=== PATIENT | female | born 1945 | race American Indian/Alaskan Native ===

== ENCOUNTER 2023-09-20 15:55 | Inpatient (IN) | payer MEDICARE, MEDICAID, SELFPAY ==
[2023-09-20] VITALS (21 sets, daily range): BP systolic 100–163; BP diastolic 53–78; PULSE 71–108; RESP 11–26; TEMP 36.7; O2SAT 96–100; BMI 27.3; BMI 23.5
--- NOTE | 2023-09-20 15:56 | DI.CT.S_ITS ---
PROCEDURE: CT STROKE INDICATIONS: code stroke TECHNIQUE: Noncontrast 4.5 mm thick angled axial sections acquired from the foramen magnum to the vertex, with coronal reformats. For radiation dose reduction, the following was used: automated exposure control, adjustment of mA and/or kV according to patient size. COMPARISON: [facility], CT, CT ANGIO HEAD AND NECK, 09/20/2023, 15:58. FINDINGS: Image quality: Excellent. CSF spaces: Basal cisterns are patent. No extra-axial fluid collections. The ventricles are symmetric in size and shape. Brain: No intracranial bleeds or masses. There is cerebral volume loss for age, with resultant ventricular and sulcal prominence. There are periventricular and deep white matter chronic small vessel ischemic changes. There is intracranial internal carotid artery atherosclerosis. Chronic left MCA territory infarct. Skull and face: Calvarium and visualized facial bones appear intact, without suspicious lesions. Sinuses: Visualized sinuses and mastoids are clear. IMPRESSION: No hemorrhagic infarct. Findings discussed with Dr. Rivas at 4:48 p.m. On 09/20/2023. This study fulfills neurological imaging criteria for inclusion or exclusion of acute stroke therapies based on available published neurological guidelines. Dictated by: Khurram Fan M.D. on 09/20/2023 at 16:46 Approved by: Khurram Fan M.D. on 09/20/2023 at 16:48
--- NOTE | 2023-09-20 15:56 | DI.CT.S_ITS ---
PROCEDURE: CT ANGIO HEAD AND NECK INDICATIONS: code stroke TECHNIQUE: After the administration of intravenous contrast, 1 mm thick sections acquired from the aortic arch through the [place] of [place]. 3-dimensional nkpzaku-nozglvnfp-vazfkmbchu (MIP) and/or volume rendering reformats were acquired of the central intracranial vasculature and neck separately. For radiation dose reduction, the following was used: automated exposure control, adjustment of mA and/or kV according to patient size. COMPARISON: [facility], CT, CT STROKE, 09/20/2023, 15:58. FINDINGS: Image quality: Diagnostic. BRAIN: Please see separately dictated CT head report 09/20/2023. HEAD CT ANGIOGRAPHY: Anterior circulation: Intracranial internal carotid arteries are normal in size and flow. The flow within the paired anterior cerebral arteries is normal and symmetric. The flow within the middle cerebral arteries is normal and symmetric. The anterior communicating artery is seen. No aneurysms are seen. Posterior circulation: Visualized portions of the vertebral arteries demonstrate normal caliber, and join to form a normal appearing basilar artery. Flow within the posterior cerebral arteries is normal and symmetric. No aneurysms are seen. NECK CT ANGIOGRAPHY: Carotid system: The great vessels demonstrate a conventional anatomy as they arise from the aortic arch. Stent is noted in the distal ascending thoracic aorta. The origins of the common carotid arteries appear patent. The common carotid arteries demonstrate normal caliber and courses. The bifurcation regions are both widely patent. Prominent calcifications are present at the origin of the internal carotid arteries bilaterally. There is approximately 60-70% stenosis on the right and 50% on the left. Posterior circulation: The origins of the vertebral arteries both appear widely patent. The more superior extracranial portions of both vertebral arteries also demonstrate normal courses and calibers. They join to form a normal appearing basilar artery. Soft tissues: Visualized neck soft tissues demonstrate no suspicious abnormalities. Bones: No suspicious bony lesions. Visualized cervical spine appears normally aligned. IMPRESSION: Please see CT brain report separately dictated on 09/20/2025. No areas of hemodynamically significant stenosis, vascular occlusion or aneurysmal dilation within the anterior circulation. No areas of hemodynamically significant stenosis, vascular occlusion or aneurysmal dilation within the posterior circulation. 50% left and 60-70% right internal carotid artery stenosis. Any quantitative measurements of stenosis were performed using NASCET criteria. Dictated by: Dian Avina M.D. on 09/20/2023 at 16:59 Approved by: Dian Avina M.D. on 09/20/2023 at 17:09
--- NOTE | 2023-09-20 16:10 | ED_ITS ---
HPI - Neuro Symptoms/Deficit General Chief Complaint: Neuro Symptoms/Deficit Stated Complaint: Code Stroke Time Seen by Provider: 09/20/23 16:00 History of Present Illness HPI Narrative: 78-year-old female with unknown past medical history presents by EMS from home for altered mental status, possible stroke. History obtained from EMS as patient is currently nonverbal. EMS states that family last saw patient normal at 14 45, they left to briefly perform an outdoor task and when they came inside the patient was unresponsive, and so they called 911. EN route patient was noted to be nonverbal, have no movement on her right-hand side. Accu-Chek 122. Patient taken expeditiously to CT scanner on arrival. Profound right-sided deficits noted as well as aphasia Related Data Allergies Allergy/AdvReac Type Severity Reaction Status Date / Time No Known Drug Allergies Allergy Verified 09/20/23 17:46 Review of Systems Review of Systems ROS Unobtainable: Unobtainable due to medical condition Patient History Social History Smoking Status: Former smoker Exam Initial Vital Signs Initial Vital Signs: Vital Signs Pulse Rate 108 H 09/20/23 16:10 Respiratory Rate 14 09/20/23 16:10 Pulse Oximetry 96 09/20/23 16:10 Const: Awake, arouses to voice Eyes: PERRL, R gaze deficit ENT: Atraumatic, mucous membranes moist Cardiac: regular rate, regular rhythm RESP: unlabored, clear bilaterally, no wheezing GI: Atraumatic, soft, nontender Skin: Warm, Dry, intact, no rashes Neuro: Alert to voice, right-sided neglect, right upper and lower extremity drift, aphasia Course Course Course Narrative: Stroke alert for right-sided deficit, last seen well by family at 2:[address] scanner, where CT noncontrast and CTA of head and neck were obtained. No acute hemorrhage seen on noncontrast CT, large area of old infarcts seen on left-hand side of brain. Discussed case with on-call tele Neurology, who will evaluate the patient. Orders Ordered: ED Orders 09/20/23 15:[address] angio head and neck Stat 09/20/23 16:15 Complete Blood Count AUTO DIFF Stat Comprehensive Metabolic Panel Stat Ethanol (ETOH) Stat PTT Partial Thromboplastin Ranjit Stat Prothrombin Time INR Stat Troponin & CK Cardiac Panel Stat 09/20/23 16:32 Urine Drug Screen, Rapid Stat 09/20/23 16:33 Urinalysis and Microscopic Stat EKG-12 Lead Stat 09/20/23 16:35 COVID19 -Nasal RAPID Stat Discontinued Medications Levetiracetam 1,950 mg/ Sodium (Chloride) 119.5 mls @ 478 mls/hr IV NOW ONE Stop: 09/20/23 17:29 Last Infusion: 09/20/23 18:47 Dose: Infused Documented By: Admin: 09/20/23 18:13 Dose: 478 mls/hr Documented By: JIM Lorazepam (Lorazepam 2 Mg/Ml Inj) 1 mg IV NOW ONE Stop: 09/20/23 16:05 Last Admin: 09/20/23 16:10 Dose: Not Given Documented By: JIM Reevaluation(s) Reevaluation #1: Tele neurology has evaluated the patient. Family is now at bedside, they state that patient did have previous stroke on the left-hand side, her residual deficits are mild weakness of her right lower extremity. They state that patient is able to speak, however she speaks infrequently. As tele neurology evaluated the patient she returned back to her baseline, confirmed by family at bedside. Reevaluation #2: Tele neurology states that patient's presentation is unlikely to be a stroke, it is more likely seizure from previous infarcted brain. They recommend loading with IV Keppra and initiation of 500 mg b.i.d. Keppra. They state the patient does not need an EEG, however they do recommend an MRI to rule out acute ischemia. Family states that they are not sure if patient can get an MRI due to previous aortic surgery. Teleneurology states that if patient is unable to get an MRI and they recommend a repeat CT in the morning. Case accepted by tele hospitalist. Consultations Consultation #1: Dr. Tran ( Neurology) patient's case is unlikely to be acute stroke as symptoms have rapidly resolved. Much more likely to be seizure activity with postictal state. Recommend loading with Keppra and initiation of 500 mg p.o. b.i.d.. Patient needs either MRI or repeat CT in the morning to rule out acute infarction. Vital Signs Vital signs: Vital Signs - 8 hr 09/20/23 16:10 09/20/23 16:13 09/20/23 16:13 Temperature Pulse Rate 108 H 104 H Respiratory Rate 14 23 Blood Pressure 163/77 H Pulse Oximetry 96 100 Oxygen Delivery Method 09/20/23 16:15 09/20/23 16:15 09/20/23 16:22 Temperature 98.0 F Pulse Rate 104 H 103 H Respiratory Rate 21 19 Blood Pressure 150/74 H 150/74 H Pulse Oximetry 98 100 Oxygen Delivery Method Room Air 09/20/23 16:30 09/20/23 16:30 09/20/23 16:45 Temperature Pulse Rate 101 H 102 H Respiratory Rate 25 H 21 Blood Pressure 149/67 H Pulse Oximetry 100 100 Oxygen Delivery Method 09/20/23 16:45 09/20/23 17:00 09/20/23 17:00 Temperature Pulse Rate 94 H Respiratory Rate 19 Blood Pressure 130/66 125/62 Pulse Oximetry 100 Oxygen Delivery Method 09/20/23 17:15 09/20/23 17:15 09/20/23 17:30 Temperature Pulse Rate 91 H 89 Respiratory Rate 19 18 Blood Pressure 133/60 Pulse Oximetry 98 96 Oxygen Delivery Method 09/20/23 17:30 09/20/23 17:45 09/20/23 17:45 Temperature Pulse Rate 85 Respiratory Rate 17 Blood Pressure 104/55 L 117/56 L Pulse Oximetry 96 Oxygen Delivery Method 09/20/23 18:00 09/20/23 18:00 Temperature Pulse Rate 80 Respiratory Rate 15 Blood Pressure 118/57 L Pulse Oximetry 96 Oxygen Delivery Method Room Air MDM - Neuro Symptoms/Deficit Differential Diagnosis Differential diagnosis: Likely convulsions, delirium and subarachnoid hemorrhage Lab Data 09/20/23 16:15 09/20/23 16:15 Labs: Lab Results 09/20/23 09/20/23 Range/Units 16:15 16:35 WBC 7.1 (4.5-11.0) X10^3/uL RBC 3.25 L (4.0-5.2) X10^6/uL Hgb 10.7 L (12.0-16.0) g/dL Hct 30.3 L (36-46) % MCV 93.4 (80-100) fL MCH 32.9 (26-34) PG MCHC 35.2 (30-36) % RDW 13.0 (11.6-14.8) % Plt Count 196 (150-400) X10^3/uL Neut % (Auto) 65.4 (50-75) % Lymph % (Auto) 25.8 (25-40) % [place] % (Auto) 6.5 (3-14) % Eos % (Auto) 1.2 L (2-4) % Baso % (Auto) 1.1 (0-2) % Neut # (Auto) 4600 (0686-0620) /uL Lymph # (Auto) 1800 (7043-5120) /uL [place] # (Auto) 500 (0-900) /uL Eos # (Auto) 100 (0-450) /uL Baso # (Auto) 100 (0-100) /uL PT 11.8 (10.1-12.7) SECONDS INR 1.0 (0.9-1.3) APTT 26 (26-36) SECONDS Sodium 129 L (137-145) mmol/L Potassium 4.0 (3.4-5.1) mmol/L Chloride 96 L (98-107) mmol/L Carbon Dioxide 23 (22-32) mmol/L BUN 19 H (7-17) mg/dL Creatinine 0.63 (0.52-1.04) mg/dL Estimated GFR > 60 (>60) mL/min BUN/Creatinine Ratio 30.2 H (6-22) Glucose 175 H (80-110) mg/dL Calcium 8.6 (8.4-10.2) mg/dL Total Bilirubin 0.2 (0.2-1.3) mg/dL AST 24 (14-36) IU/L ALT 15 (<35) IU/L Alkaline Phosphatase 84 (38-126) U/L Total Creatine Kinase 80 (30-135) U/L Troponin I < 0.012 (0.01-0.034) ng/mL Total Protein 7.0 (6.3-8.2) g/dL Albumin 3.6 (3.5-5.0) g/dL Globulin 3.4 (1.7-4.1) g/dL Albumin/Globulin Ratio 1.1 (1.0-2.8) Ethyl Alcohol < 10 ( - 10) mg/dL SARS-CoV-2 (PCR) Negative (Negative) Point of Care Testing Glucose POC 165 Critical Care Time Critical Care Time Critical Care Time: Yes Total Critical Care Time: 38 Attestation: Acute change in mental status concerning for acute CVA. Discharge Plan Departure Patient Disposition: Admitted as Observation Clinical Impression: Seizure, Right sided weakness
[2023-09-20 16:45] LABS: Prothrombin Time 11.8 SECONDS (10.1-12.7)
[2023-09-20 16:47] LABS: Add Manual Diff / Slide Review NO; Basophils Absolute Auto 100 /uL (0-100); Basophils Percent Auto 1.1 % (0-2); Eosinophils Absolute Auto 100 /uL (0-450); Eosinophils Percent Auto 1.2 % (2-4); Hematocrit 30.3 % (36-46); Hemoglobin 10.7 g/dL (12.0-16.0); Lymphocytes Absolute Auto 1800 /uL (1100-4500); Lymphocytes Percent Auto 25.8 % (25-40); Mean Corpuscular HGB Conc 35.2 % (30-36); Mean Corpuscular Hemoglobin 32.9 PG (26-34); Mean Corpuscular Volume 93.4 fL (80-100); Monocytes Absolute Auto 500 /uL (0-900); Monocytes Percent Auto 6.5 % (3-14); Neutrophils Absolute Auto 4600 /uL (1500-7000); Neutrophils Percent Auto 65.4 % (50-75); Platelet Count 196 X10^3/uL (150-400); Red Blood Cell Count 3.25 X10^6/uL (4.0-5.2); White Blood Cell Count 7.1 X10^3/uL (4.5-11.0)
[2023-09-20 16:48] LABS: PTT Partial Thromboplastin Tim 26 SECONDS (26-36)
[2023-09-20 16:54] LABS: Alanine Aminotransferase 15 IU/L (<35); Albumin 3.6 g/dL (3.5-5.0); Albumin Globulin Ratio 1.1 (1.0-2.8); Alkaline Phosphatase 84 U/L (38-126); Aspartate Aminotransferase 24 IU/L (14-36); BUN Creatinine Ratio 30.2 (6-22); Bilirubin Total 0.2 mg/dL (0.2-1.3); Blood Urea Nitrogen 19 mg/dL (7-17); Calcium 8.6 mg/dL (8.4-10.2); Carbon Dioxide 23 mmol/L (22-32); Chloride 96 mmol/L (98-107); Creatine Kinase 80 U/L (30-135); Estimated Glomerular Filt Rate > 60 mL/min (>60); Ethanol (ETOH) < 10 mg/dL; Globulin 3.4 g/dL (1.7-4.1); Glucose 175 mg/dL (80-110); HEMOLYSIS 17 (0-50); Sodium 129 mmol/L (137-145)
[2023-09-20 16:58] LABS: COVID19 -Nasal RAPID Negative (Negative)
--- NOTE | 2023-09-20 16:59 | PC.NURSE ---
Telehealth [facility] doctor finishes video conference with patient. Per tele-health [facility] doctor recommendations are for anti-seizure meds and MRI or repeat CT in the morning. Provider Rob made aware of tele-health recommendations.
[2023-09-20 17:06] LABS: Troponin I < 0.012 ng/mL (0.01-0.034)
[2023-09-20] MEDS: LEVETIRACETAM IV (18:13)
[2023-09-20] MEDS: SODIUM CHLORIDE 0.9% IV (18:13)
--- NOTE | 2023-09-20 21:31 | P.HP_ITS ---
History of Present Illness History of Present Illness Chief complaint: Code Stroke Narrative: 78 years old female with history of hypertension, hyperlipidemia, hypothyroidism presented to the ER with altered mental status. As per EMS note the family last saw her at 14:45. When they saw her later the patient was unresponsive and called 911. In route the patient was noted to be nonverbal, no movements on the right side and her blood sugar was 122. Neuro code initiated and the patient had a CT scan which shows large old infarct seen on the left side of the brain. Telemetry neurologist on-call was consulted and stated that the patient presentation is unlikely to be stroke and most likely seizure from previous stroke. The patient received Keppra 500 mg IV and initiated 500 mg p.o. twice daily. Currently the patient is nonverbal and still left-sided residual weakness from previous stroke. Laboratory shows sodium 129, blood sugar 175, troponin negative, COVID 19 negative, creatinine 0.63, EtOH level negative. Initial blood pressure was 163/77 and pulse 108. PFSH Social History household members: family Smoking Status: Former smoker alcohol intake: current Meds Home Medications and Allergies Home Medications Medication Instructions Recorded Confirmed Type amlodipine 10 mg tablet 10 mg PO DAILY 09/20/23 09/20/23 History aspirin 81 mg tablet,delayed 81 mg PO DAILY 09/20/23 09/20/23 History release atorvastatin 40 mg tablet 40 mg PO BEDTIME 09/20/23 09/20/23 History ferrous gluconate 324 mg (37.5 mg 324 mg PO Q OTHER DAY 09/20/23 09/20/23 History iron) tablet levothyroxine 100 mcg tablet 100 mcg PO DAILY 09/20/23 09/20/23 History lisinopril 40 mg tablet 40 mg PO DAILY 09/20/23 09/20/23 History nitroglycerin 0.4 mg sublingual 0.4 mg sublingual Q5-15M PRN cp 09/20/23 09/20/23 History tablet Allergies Allergy/AdvReac Type Severity Reaction Status Date / Time No Known Drug Allergies Allergy Verified 09/20/23 17:46 Review of Systems Review of Systems ROS: Yes All systems reviewed with the patient and are negative except as otherwise documented Constitutional Constitutional: Reports as per HPI and Reports system reviewed and no additional complaints, except as documented Eyes Eyes: Reports as per HPI and Reports system reviewed and no additional complaints, except as documented ENT Ears, Nose, Mouth, and Throat: Yes as per HPI and Yes system reviewed and no additional complaints, except as documented Cardiovascular Cardiovascular: Reports system reviewed and no additional complaints, except as documented Respiratory Respiratory: Reports system reviewed and no additional complaints, except as documented Gastrointestinal Gastrointestinal: Reports system reviewed and no additional complaints, except as documented Genitourinary Genitourinary: Reports system reviewed and no additional complaints, except as documented Musculoskeletal Musculoskeletal: Reports system reviewed and no additional complaints, except as documented, Reports abnormal gait and Reports numbness Neurologic Neurologic: Reports system reviewed and no additional complaints, except as documented, Reports abnormal gait, Reports confusion and Reports numbness Psychiatric Psychiatric: Reports system reviewed and no additional complaints, except as documented and Reports confusion Exam Vital Signs (past 8 hours): - 09/20/23 16:10 09/20/23 16:13 09/20/23 16:13 Temperature Pulse Rate 108 H 104 H Respiratory Rate 14 23 Blood Pressure 163/77 H Pulse Oximetry 96 100 Oxygen Delivery Method 09/20/23 16:15 09/20/23 16:15 09/20/23 16:22 Temperature 98.0 F Pulse Rate 104 H 103 H Respiratory Rate 21 19 Blood Pressure 150/74 H 150/74 H Pulse Oximetry 98 100 Oxygen Delivery Method Room Air 09/20/23 16:30 09/20/23 16:30 09/20/23 16:45 Temperature Pulse Rate 101 H 102 H Respiratory Rate 25 H 21 Blood Pressure 149/67 H Pulse Oximetry 100 100 Oxygen Delivery Method 09/20/23 16:45 09/20/23 17:00 09/20/23 17:00 Temperature Pulse Rate 94 H Respiratory Rate 19 Blood Pressure 130/66 125/62 Pulse Oximetry 100 Oxygen Delivery Method 09/20/23 17:15 09/20/23 17:15 09/20/23 17:30 Temperature Pulse Rate 91 H 89 Respiratory Rate 19 18 Blood Pressure 133/60 Pulse Oximetry 98 96 Oxygen Delivery Method 09/20/23 17:30 09/20/23 17:45 09/20/23 17:45 Temperature Pulse Rate 85 Respiratory Rate 17 Blood Pressure 104/55 L 117/56 L Pulse Oximetry 96 Oxygen Delivery Method 09/20/23 18:00 09/20/23 18:00 09/20/23 18:16 Temperature Pulse Rate 80 84 Respiratory Rate 15 19 Blood Pressure 118/57 L Pulse Oximetry 96 97 Oxygen Delivery Method Room Air 09/20/23 18:16 09/20/23 18:30 09/20/23 18:30 Temperature Pulse Rate 81 Respiratory Rate 19 Blood Pressure 146/65 H 149/71 H Pulse Oximetry 98 Oxygen Delivery Method 09/20/23 18:46 09/20/23 18:46 09/20/23 19:00 Temperature Pulse Rate 90 90 Respiratory Rate 21 19 Blood Pressure 150/68 H Pulse Oximetry 98 Oxygen Delivery Method 09/20/23 19:00 09/20/23 19:15 09/20/23 19:15 Temperature Pulse Rate 89 Respiratory Rate 24 Blood Pressure 139/63 129/63 Pulse Oximetry 97 Oxygen Delivery Method 09/20/23 19:30 09/20/23 19:30 09/20/23 19:45 Temperature Pulse Rate 85 89 Respiratory Rate 25 H 26 H Blood Pressure 136/76 Pulse Oximetry 98 98 Oxygen Delivery Method 09/20/23 19:45 09/20/23 20:00 09/20/23 20:00 Temperature Pulse Rate 76 Respiratory Rate 15 Blood Pressure 148/78 H 117/57 L Pulse Oximetry 100 Oxygen Delivery Method Room Air 09/20/23 20:15 09/20/23 20:15 09/20/23 20:30 Temperature Pulse Rate 71 79 Respiratory Rate 14 11 L Blood Pressure 102/53 L Pulse Oximetry 100 100 Oxygen Delivery Method 09/20/23 20:30 Temperature Pulse Rate Respiratory Rate Blood Pressure 100/55 L Pulse Oximetry Oxygen Delivery Method Oxygen Delivery Method Room Air Const General: cooperative and comfortable HENNC Head: normal to inspection, normocephalic and atraumatic Face and sinus: normal facial exam Mouth: oral mucosae normal and moist mucous membranes Throat: posterior oropharynx normal Eyes General: appearance normal, both eyes and all related structures Pupils: PERRL EOM: EOM intact bilaterally Neck Neck: normal visual inspection and full ROM Chest Chest: normal inspection of the chest Resp Effort & Inspection: normal respiratory effort and able to speak in complete sentences Auscultation: clear to auscultation bilaterally Cardio Palpation: normal PMI Rate: regular rate Rhythm: regular rhythm Heart Sounds: S1 normal and S2 normal GI Inspection: normal to inspection Palpation: soft and no hepatosplenomegaly Auscultation: normal bowel sounds Skin General: no rashes or lesions noted Lesions: no lesions Rashes: no rashes Trauma: no lacerations or abrasions Neuro General: patient alert, patient awake, patient oriented x3 and no focal motor deficits Cranial Nerves: CN's II-XI intact bilaterally Cognition: normal cognition Speech: speech normal Gait: normal gait Motor: muscle tone normal throughout Sensory Exam: no sensory deficits noted Extrem General: full ROM and no calf tenderness Psych Appearance: grossly normal Mental Status: mental status grossly normal Speech and Movement: speech and movement normal Objective Labs 09/20/23 16:15 09/20/23 16:15 Labs: Laboratory Results - last 24 hr 09/20/23 09/20/23 16:15 16:35 WBC 7.1 RBC 3.25 L Hgb 10.7 L Hct 30.3 L MCV 93.4 MCH 32.9 MCHC 35.2 RDW 13.0 Plt Count 196 Neut % (Auto) 65.4 Lymph % (Auto) 25.8 [place] % (Auto) 6.5 Eos % (Auto) 1.2 L Baso % (Auto) 1.1 Neut # (Auto) 4600 Lymph # (Auto) 1800 [place] # (Auto) 500 Eos # (Auto) 100 Baso # (Auto) 100 PT 11.8 INR 1.0 APTT 26 Sodium 129 L Potassium 4.0 Chloride 96 L Carbon Dioxide 23 BUN 19 H Creatinine 0.63 Estimated GFR > 60 BUN/Creatinine Ratio 30.2 H Glucose 175 H Calcium 8.6 Total Bilirubin 0.2 AST 24 ALT 15 Alkaline Phosphatase 84 Total Creatine Kinase 80 Troponin I < 0.012 Total Protein 7.0 Albumin 3.6 Globulin 3.4 Albumin/Globulin Ratio 1.1 Ethyl Alcohol < 10 SARS-CoV-2 (PCR) Negative Assessment & Plan Assessment and plan (1) Seizure: Status: Acute Plan: Seizure versus stroke -ASA, Keppra 500 mg po BID -ECHO, MRI -Telemetry monitoring, Serial neurocheck -Strict bed-rest for now -Monitor hemodynamic -Continue IV fluids -Ativan IV prn for seizure activity -n.p.o. for now -Check lipid panel in a.m., thyroid function test, blood sugar monitoring, -PT/OT and swallowing evaluation in a.m. I would keep him n.p.o. for now -Sroke education -fall precaution -LDL goal 40-70. LDL <70 associated with increased risk of ICH -Goal BP <140/90 with tighter control associated with decreased overall CV risk, if tolerated (2) Hypertension: Status: Acute Plan: Restart amlodipine and lisinopril (3) Hyperlipidemia: Status: Acute Plan: Restart Lipitor and check lipids (4) Hypothyroidism: Status: Acute Plan: Restart levothyroxine and check TSH Time Spent With Patient Time with patient: 50 to 69 minutes with 50% spent counseling/coordinating care Quality VTE Deep Vein Thrombosis/Pulmonary Embolism Present on Admission: No MIPS - Admit I confirm the patient?s Advance Care Plan is present, Code status is documented, Surrogate decision maker is in patient?s record [If Yes, STOP here]: Yes MIPS - Meds 'Current medications' to include all prescriptions, [id number] products, herbals, cannabis/cannabidiol products, and vitamin/mineral/dietary (nutritional) supplements. I have utilized all available resources to obtain, update, or review the patient?s current medications. [If Yes, STOP here]: Yes
[2023-09-20 23:46] LABS: Thyroid Stimulating Hormone 161 uIU/mL (0.47-4.68)
[2023-09-21 02:28] VITALS: BP 122/60; PULSE 60; RESP 16; TEMP 36; O2SAT 99
[2023-09-21 05:39] VITALS: BP 138/57; PULSE 72; RESP 16; TEMP 36.7; O2SAT 96
[2023-09-21 06:26] LABS: Alanine Aminotransferase 13 IU/L (<35); Albumin 3.5 g/dL (3.5-5.0); Albumin Globulin Ratio 1.1 (1.0-2.8); Alkaline Phosphatase 80 U/L (38-126); Aspartate Aminotransferase 23 IU/L (14-36); BUN Creatinine Ratio 22.4 (6-22); Bilirubin Total 0.2 mg/dL (0.2-1.3); Blood Urea Nitrogen 15 mg/dL (7-17); Calcium 8.7 mg/dL (8.4-10.2); Carbon Dioxide 28 mmol/L (22-32); Chloride 98 mmol/L (98-107); Estimated Glomerular Filt Rate > 60 mL/min (>60); Globulin 3.3 g/dL (1.7-4.1); Glucose 115 mg/dL (80-110); HEMOLYSIS < 15 (0-50); Potassium 4.2 mmol/L (3.4-5.1); Sodium 130 mmol/L (137-145); Total Protein 6.8 g/dL (6.3-8.2)
[2023-09-21 06:27] LABS: Cholesterol 164 mg/dL (140-199); HDL Cholesterol 44 mg/dL (40-60); LDL Cholesterol Calculated 92 mg/dL (<100); Magnesium 1.7 mg/dL (1.6-2.3); Triglycerides 138 mg/dL (35-150)
[2023-09-21 08:00] VITALS: BP 158/77; PULSE 70; RESP 16; TEMP 36.4; O2SAT 98
[2023-09-21] MEDS: ENOXAPARIN 40 MG/0.4 ML SYRINGE SUBCUT (08:27)
[2023-09-21 08:28] VITALS: BP 138/57; PULSE 72
[2023-09-21] MEDS: ASPIRIN EC 81 MG TABLET PO (08:28)
[2023-09-21] MEDS: AMLODIPINE 5 MG TABLET 10 MG PO (08:28)
[2023-09-21] MEDS: lisinopriL 20 MG TABLET 40 MG PO (08:28)
[2023-09-21] MEDS: levETIRAcetam 250 MG TABLET 500 MG PO (08:28)
[2023-09-21] MEDS: LEVOTHYROXINE 100 MCG TABLET PO (08:28)
--- NOTE | 2023-09-21 08:29 | DI.ECHO.S_ITS ---
[place] [facility]---------+ [facility] +---------+ : : [address] : : : : [id number] : : : : Phone: [phone]---------+ Echocardiogram Report + + :Name: GINA NARANJO Study Date: 09/21/2023 Height: 61 in : :[facility] ReadingLocation: Weight: 124 lb : : Gender: Female BSA: 1.5 m2 : :: 1945 Age: 78 yrs BP: 154/65 mmHg: :Reason For Study: TIA : :Ordering Physician: VANESSA, : :BRADY Performed By: Sveta Jain : :Referring: BRADY MENDEZ : + + Interpretation Summary The left ventricle is normal in size. The left ventricular ejection fraction is normal. The ejection fraction is estimated to be 55-60%. The right ventricle is moderately dilated. The right ventricular systolic function is normal. There is moderate to severe mitral annular calcification. The mitral valve mean gradient is 3.3 mmHg. There is mild mitral stenosis. There is mild to moderate mitral regurgitation. There is a bioprosthetic aortic valve. The prosthetic aortic valve is well-seated. The peak aortic velocity is 1.63 m/sec. The aortic valve mean gradient is 6 mmHg. There is mild perivalvular regurgitation around the prosthetic aortic valve. Moderate atherosclerotic plaque(s) in the aortic arch. Procedure: A two-dimensional transthoracic echocardiogram with color flow and Doppler was performed. The study quality was technically difficult. There is no prior echocardiogram noted for this patient. The patient was in normal sinus rhythm during the exam. Left Ventricle: The left ventricle is normal in size. Proximal septal thickening is noted. There is mild concentric left ventricular hypertrophy. There is no echo evidence for significant left ventricular outflow tract obstruction. There is no thrombus. The ejection fraction is estimated to be 55-60%. The left ventricular ejection fraction is normal. There are no focal wall motion abnormalities. MV E/A: 0.67 Med Peak E' Asad: 4.3 cm/sec E/E' med: 20.5. Right Ventricle: The right ventricle is moderately dilated. The right ventricular systolic function is normal. Atria: The left atrium is moderately dilated. Right atrial size is normal. There is no Doppler evidence for an interatrial shunt. Mitral Valve: There is moderate to severe mitral annular calcification. The mitral valve chordae are thickened and/or calcified. The mitral valve mean gradient is 3.3 mmHg. There is mild mitral stenosis. There is mild to moderate mitral regurgitation. Aortic Valve: There is a bioprosthetic aortic valve. The prosthetic aortic valve is well-seated. There is mild perivalvular regurgitation around the prosthetic aortic valve. The peak aortic velocity is 1.63 m/sec. The aortic valve mean gradient is 6 mmHg. Tricuspid Valve: The tricuspid valve is normal. There is no tricuspid stenosis. There is mild tricuspid regurgitation. Right ventricular systolic pressure is estimated to be 18.2 mmHg plus the clinically estimated CVP which cannot be estimated on this exam. Pulmonic Valve: The pulmonic valve is not well seen, but is grossly normal. There is no pulmonic valvular stenosis. There is no pulmonic valvular regurgitation. Great Vessels: The aortic root is not well visualized. The ascending aorta could not be visualized. Moderate atherosclerotic plaque(s) in the aortic arch. The pulmonary artery is normal size. The inferior vena cava was not well visualized. Pericardium/ Pleura There is no pericardial effusion. MMode/2D Measurements & Calculations LVIDd: 4.0 cm LVOT diam: 1.7 cm LVIDs: 3.0 cm FS: 25.0 % EPSS: 1.0 cm IVSd: 1.1 cm LVPWd: 1.1 cm LV barrientos. diameter/BSA (cm/m^2): 2.6 LV sys. diameter/BSA (cm/m^2): 1.9 LA A2 area: 20.0 cm2 RA long axis: 5.4 cm LA A4 area: 18.5 cm2 RA area: 14.1 cm2 LA length (vol): 5.7 cm RA vol: 31.2 ml LA vol: 55.2 ml RA : 20.2 ml/m2 LA vol index: 35.8 ml/m2 RVD1 (basal): 4.8 cm LVLs ap4: 5.8 cm LVLd ap2: 7.0 cm TAPSE_phl: 1.8 cm LVLs ap2: 5.7 cm Doppler Measurements & Calculations Ao V2 max: 154.8 cm/sec LVOT Max Asad: 96.3 cm/sec Ao V2 mean: 104.8 cm/sec LV V1 max P.7 mmHg Ao max P.0 mmHg LV V1 VTI: 19.9 cm Ao mean P.2 mmHg ALLISON(I,D): 1.4 cm2 Ao V2 VTI: 32.9 cm ALLISON(V,D): 1.4 cm2 sev ratio: 0.60 ALLISON indexed to BSA (cm^2/m^2): 0.89 MV E max asad: 87.5 cm/sec TR max asad: 213.0 cm/sec MV A max asad: 131.0 cm/sec TR max P.2 mmHg MV E/A: 0.67 PA V2 max: 113.0 cm/sec Med Peak E' Asad: 4.3 cm/sec PA V2 mean: 75.4 cm/sec E/E' med: 20.5 PA mean P.0 mmHg Lat Peak E' Asad: 6.0 cm/sec PA pr(Accel): 40.8 mmHg E/E' lat: 14.6 E/e' average: 17.5 MV dec time: 0.32 sec MVA(VTI): 0.92 cm2 MV V2 mean: 82.5 cm/sec SV(LVOT): 45.1 ml MV mean P.3 mmHg MV V2 VTI: 48.8 cm AV VR_phl: 0.62 ALLISON(VTI)/BSA_phl: 0.89 Reading Physician:03:59 PM
[2023-09-21 09:05] LABS: Free T4, Direct Thyroxine 0.25 ng/dL (0.78-2.19)
[2023-09-21] MEDS: MAGNESIUM SULFATE 2 GM/50 ML PIGGYBACK IV (09:33)
--- NOTE | 2023-09-21 12:04 | OT.IP.EVAL ---
Current Diagnoses Hypothyroidism, unspecified (09/20/23) Hyperlipidemia, unspecified (09/20/23) Essential (primary) hypertension (09/20/23) Unspecified convulsions (09/20/23) Occupational Therapy Inpatient Evaluation/Re-Eval M1 PT/OT-IP Prior Functional Status Start: 09/21/23 12:07 Freq: NEEDED Status: Active Protocol: Document 09/21/23 12:08 CGR (Rec: 09/21/23 12:30 CGR [id number]) Medical Review Prior Functional Status Medical History Reviewed Yes Communication Pt is limited in her communication but is able to state needs when necessary. She often studders/has a pressured start to a word. Mobility and Gait Pt granddaughter, pt ambulated around the house without assist often without AD. Pt uses a 4WW or w/c for community distances Activities of Daily Living and IADL's Pt needed max a for bathing but was able to dress self. Pt feeds self but relies on family for other simple ADLs. Pt's family takes care fo all IADLs. Prior Functional Level (Other details) Per the granddaughter, the patients other grandchildren were wanting to put her into a home so the pts daughter and granddaughter moved her out here from [place]. 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 Social History Household Members family Living Arrangements House Number of Floors (Floors) One Floor Number of Stairs To Enter/Railing? 3 steps to enter without rail. Home Environment High Toilet,Tub/Shower Home Equipment Four Wheel Walker,Manual Wheelchair,Shower Seat without Backrest,Hand Held Shower Employment Status Retired Additional Social History Comment Pt lives with the granddaughter and daughter. Pt 's daughter is home with her all the time. M2 OT-IP Current Condition Start: 09/21/23 12:07 Freq: Status: Active Protocol: Document 09/21/23 12:08 CGR (Rec: 09/21/23 12:30 CGR [id number]) Occupational Therapy Current Condition Current Condition Evaluation Date 09/21/23 Treatment Diagnosis Seziure, hx of LMCA CVA with R weakness. Diagnosis Onset Date 09/20/23 M3 OT- IP Subjective and Pain Start: 09/21/23 12:07 Freq: Status: Active Protocol: Document 09/21/23 12:08 CGR (Rec: 09/21/23 12:30 CGR [id number]) OT- Subjective Occupational Therapy Visit Type Type Initial Evaluation Visit Start Time 11:26 Visit Stop Time 12:04 Total Visit Minutes 38 Notes Called granddaughter with permission of the pt to obtain all information about PLOF and home set up. OT Pain Assessment Pain When Pain Assessed At Rest Pain Present Pain Present Denied Pain M4 OT- IP ADL's Start: 09/21/23 12:07 Freq: Status: Active Protocol: Document 09/21/23 12:08 CGR (Rec: 09/21/23 12:30 CGR [id number]) OT STT-Ipvd-Ixonbfv General Evaluation Self-Feeding Ability Independent Comments OT Self-Feeding Comments with water OT ADL-Grooming General Evaluation Grooming Ability Standby Assistance Areas Needing Assistance Retrieving/Set-up of Grooming Items,Face Washing Comments OT Grooming Comments seated in chair OT ADL-Oral Care General Eval Oral Care Ability Maximum Assistance Comments Oral Care Comments Pt performed minimal brushing but got tooth paste all over her R hand. Per granddaughter, pt typically takes out her dentures and someone else cleans them. OT ADL-Dressing General Eval Lower Body Dressing Ability Moderate Assistance Areas Needing Assistance Socks Comments OT Dressing Comments Pt donned sock to the RLE but needed help with pulling it into place. OT ADL-Toileting Comments OT Toileting Comments not performed, pt with brief donned OT ADL-Bathing Comments OT Bathing Comments not performed M5 OT- IP IADL's Start: 09/21/23 12:07 Freq: Status: Active Protocol: Document 09/21/23 12:08 CGR (Rec: 09/21/23 12:30 CGR [id number]) OT-Instrumental Activities of Daily Living Deficits IADL Deficits Identified Deficits Home Safety Awareness Awareness of Need for Assistance at Home Decreased Awareness Ability to Problem Solve Emergency Unable to Problem Solve Situations Medication Management Medication Management Caregiver Administers Money Management Money Management Caregiver Provides Assistance Meal Preparation Meal Preparation Caregiver Provides Assist Predictive Maintenance Specialist Predictive Maintenance Specialist Caregiver Provides Assist Driving Driving Comments Pt does not drive at baseline. M6 OT- IP Functional Cognition Start: 09/21/23 12:07 Freq: Status: Active Protocol: Document 09/21/23 12:08 CGR (Rec: 09/21/23 12:30 CGR [id number]) Cognitive Factors Limiting Selfcare Function Cognitive Ability Level of Alertness Alert,Confusional State Patient Orientation Name Attention Span Ability Unable to Focus,Unable to Sustain Attention Ability to Follow Commands Able to Follow One Step Commands with Increased Time, Able to Follow One Step Commands with Repetition Cognitive Comments Cognitive Assessment Comments Pt is able to follow 1 step commands inconsistently OT- Vision and Hearing OT- Hearing Assessment OT- Hearing Assessment WFL OT- Vision Assessment Visual Acuity WFL Visual Attentiveness WFL Occular Pursuits WFL Vision Assessment Comments Pt is unable to follow commands for testing but is able to visually track this technical proposal writer throughout the room. M7 OT- IP Mobility and Balance Start: 09/21/23 12:07 Freq: Status: Active Protocol: Document 09/21/23 12:08 CGR (Rec: 09/21/23 12:30 CGR [id number]) OT- Bed Mobility Assessment Supine to Sit Supine to Sit Assist Moderate Assistance Scooting Scooting to Edge of Bed Moderate Assistance OT-Transfer Assessment Sit to and From Stand Sit to and from Stand Moderate Assistance Transfers Transfer Ability Moderate Assistance,1 Person Assistance Technique Transfer Destination Bed,Chair Transfer Technique Stand Step Pivot Devices Transfer Assistive Devices Gait Belt,Front Wheeled Walker Comments Mobility Comments Pt performed shuffing steps to the chair with RLE dragging. Pt then stood again for repositioning with mod a and returned to sitting in chair. OT- Gait Assessment Comments Gait Ability Comments not performed OT- Balance Assessment Sitting Balance and Reactions Static Sitting Balance Ability Fair Dynamic Sitting Balance Ability Fair M8 OT- IP Objective Assessments Start: 09/21/23 12:07 Freq: Status: Active Protocol: Document 09/21/23 12:08 CGR (Rec: 09/21/23 12:30 CGR [id number]) OT Gross Range of Motion Upper Extremity Range of Motion Assessment Right Impaired OT Strength Upper Extremity Strength Assessment Right Impaired Comments Strength Comments RUE grossly 2+ to 3-/5 LUE grossly 3+ to 4-/5 OT- Coordination Assessment Upper Extremity Finger to Nose Test Right UE Impaired Finger Tapping Test Right UE Impaired OT-Muscle Tone Assessment Muscle Tone WNL Yes OT Sensation Assessment Edema Edema Absent M9 OT- IP Assessment and Plan Start: 09/21/23 12:07 Freq: Status: Active Protocol: Document 09/21/23 12:08 CGR (Rec: 09/21/23 12:30 CGR [id number]) OT Summary Assessment and Plan Potential Rehabilitation Potential Fair Analytic Complexity at Evaluation High Summary OT Impairments Range of Motion,Strength, Balance,Coordination, Functional Cognition, Functional Mobility,Grooming, Dressing,Toileting,Bathing, Toilet Transfers,Shower Transfers,Activity Tolerance Progress Towards Goals Progressing Toward Goals Assessment Summary Pt presents as a high complexity evaluation s/p admit for possible seizure. Pt has a hx of Oct 2022 L MCA CVA. Pt needs significant assist at home for ADLs but was IND to MOD I for mobility. Notified P.T. and Dr. Loomis of need for P.T. assessment. Pt participated in transfer from bed to chair and performed limited ADLs seated. Pt will continue to benefit from OT services while hospitalized but is likely close to her baseline for ADLs . Family is likely to request home vs SNF but pt is appropriate for SNF. Goals Grooming Goal Independent Dressing Goal Independent Toileting Goal Independent Toilet Transfer Goal Independent Days to Meet Goals 10 Frequency of Treatment Frequency Of Treatment Once a Day Treatment Plan OT Treatment Plan ADL Training,Functional Cognition Training,Functional Mobility,Patient/Family Education,Discharge Planning Other Treatment Recommendations and Next toileting if mobility is Treatment Focus better Discharge Recommendations OT Discharge Recommendations Home vs SNF Other Discharge Recommendations Family is likely to request home but pt would be appropriate for SNF. Transportation Needs at Discharge Private Vehicle
--- NOTE | 2023-09-21 12:37 | DI.CT.S_ITS ---
PROCEDURE: CT HEAD/BRAIN WO CON INDICATIONS: Prior stroke. f/up rec by neurology since MRI not feasible TECHNIQUE: Noncontrast 4.5 mm thick angled axial sections acquired from the foramen magnum to the vertex, with coronal and sagittal reformats. For radiation dose reduction, the following was used: automated exposure control, adjustment of mA and/or kV according to patient size. COMPARISON: [facility], CT, CT STROKE, 09/20/2023, 15:58. FINDINGS: Image quality: Excellent. CSF spaces: Basal cisterns are patent. No extra-axial fluid collections. The ventricles are symmetric in size and shape. Brain: No intracranial bleeds or masses. Stable chronic left middle cerebral artery distribution infarct. There is cerebral volume loss for age, with resultant ventricular and sulcal prominence. There are periventricular and deep white matter chronic small vessel ischemic changes. There is intracranial internal carotid artery and vertebral artery atherosclerosis. Skull and face: Calvarium and visualized facial bones appear intact, without suspicious lesions. Sinuses: Visualized sinuses and mastoids are clear. IMPRESSION: No acute intracranial disease process. Dictated by: Kathrine Blanca MD, PhD on 09/21/2023 at 13:15 Approved by: Kathrine Blanca MD, PhD on 09/21/2023 at 13:18
--- NOTE | 2023-09-21 13:25 | CM.DANOTE ---
Reviewed EMR for pt's medical status and initial anticipated d/c needs. Met with pt, dtr, and granddaughter at bedside to introduce self and role. Pt found to be very fragile, weak, needing a lot of assistance with transfers and cuing by staff. She remains mostly non-verbal, family provided preferences and plan for return home. Payor: Medicare, Medicaid PCP: Helen Pt is a 78 year-old F transported to the ED by EMS on 09/20/23 with altered mental status, non-verbal, and significant R-sided deficits. She was admitted for stroke vs. siezure for continued evaluation. CT imaging was negative for stroke, [facility] was consulted and felt that it was more likely a seizure than stroke, as her symptoms resolved shortly after admission. She resides with her dtr and granddaughter in dtr's home, both of whom provide all caregiving and home IADL/ADL needs. Pt found to be only minimally able to respond verbally, appearing very fragile and requiring a 2-person assist for transfers. PT eval recommendation was for SNF vs. home, however family prefers home discharge. Discussed further home therapy recommendations for HH w/OT. The family's preference is [facility], a referral was initiated and clinicals were faxed. This FURNITURE DIPPER explained what to expect with HH, and established that the granddaughter will be the point of contact. Possible d/c home later this evening. F/F for Home Health is completed. DCP to continue to monitor for HH acceptance and any further d/c needs throughout the day. Discharge Planning/Care Management CM Discharge Assessment Start: 09/21/23 13:19 Freq: Status: Active Protocol: Document 09/21/23 13:19 DPL (Rec: 09/21/23 13:25 DPL [id number]) Discharge Planning Assessment Assigned Electronics Mechanic CASSI Pablo Advance Directives? No History Provided By Family Member,Medical Record Expected Length of Stay 1 Has Patient been admitted in last 30 No days? Prior Living Arrangements House Comment Pt resides in dtr's home, along with granddaughter. Household Members family Type of transporation used prior to Relies on Others admit Independent with ADL's No: Pt is able to feed herself , however depends on family for all other ADL's. Is patient alert and oriented? No Needs Assistance With Bathing,Grooming,Meal Prep, Toileting,Managing Medications ,Home Chores / Shopping Comment Family manages all IADL's and care needs. Caregiver for Another No Comment N/A DME Already Rented / Owned [facility] Faxed No Patient/Family Preference Home with Home Health Comment Family indicated [facility] as their preference. This FURNITURE DIPPER initiated referral and completed the F-F form. Provided them with granddaughter's contact info for OP f/u. Barriers to Discharge No Discharge Plan [facility] Occupational Therapy Transportation Arrangement PT recommending continued OP OT. Referrals Initiated Home Health If patient plan is home with home health Yes : Has signed face to face form been completed? Inpatient Status as of 09/21/23 Medicare Choice List Provided No Medicare choice list reviewed on family electronic tablet with Whiteboard Updated in Patient Room with Yes name and ext. # of Electronics Mechanic Review Status In Process Please Provide Date Initial DC 09/21/23 Assessment Was Performed
--- NOTE | 2023-09-21 13:43 | CM.DPC ---
Addendum entered and electronically signed by CASSI Chilel 09/21/23 13:57: Pt does not have a PCP, this BRANCH SERVICE LEADER just learned this. Cancelled Home Health and assisted family with contact info at to obtain a new PCP. Original Note: DCP Cont. [facility] accepts for continued OP OT.
--- NOTE | 2023-09-21 14:18 | CM.DPC ---
DCP Cont. [facility] accepts, will follow-up OP, no PCP, so they will accept her in the [place] [place] transitional program. F/F faxed.
--- NOTE | 2023-09-21 16:21 | PT.IIE ---
Current Diagnoses Hypothyroidism, unspecified (09/20/23) Hyperlipidemia, unspecified (09/20/23) Essential (primary) hypertension (09/20/23) Unspecified convulsions (09/20/23) Physical Therapy Inpatient Evaluation/Re-Eval M1 PT/OT-IP Prior Functional Status Start: 09/21/23 12:07 Freq: NEEDED Status: Active Protocol: Document 09/21/23 16:26 AB (Rec: 09/21/23 16:49 AB [id number]) Medical Review Prior Functional Status Medical History Reviewed Yes Communication Pt is limited in her communication but is able to state needs when necessary. She often studders/has a pressured start to a word. Mobility and Gait Pt granddaughter, pt ambulated around the house without assist often without AD. Pt uses a 4WW or w/c for community distances Activities of Daily Living and IADL's Pt needed max a for bathing but was able to dress self. Pt feeds self but relies on family for other simple ADLs. Pt's family takes care fo all IADLs. Prior Functional Level (Other details) Per the granddaughter, the patients other grandchildren were wanting to put her into a home so the pts daughter and granddaughter moved her out here from [place]. 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 Social History Household Members family Living Arrangements House Number of Floors (Floors) One Floor Number of Stairs To Enter/Railing? 3 CORNELIUS no hand rails Home Environment High Toilet,Tub/Shower Home Equipment Four Wheel Walker,Manual Wheelchair,Shower Seat without Backrest,Hand Held Shower Employment Status Retired Additional Social History Comment Pt lives with daughter and granddaughter; daughter is with her 24/7 and assists her with needs. M1 PT/OT-IP Prior Functional Status Start: 09/21/23 16:26 Freq: NEEDED Status: Active Protocol: Document 09/21/23 16:26 AB (Rec: 09/21/23 16:49 AB [id number]) Medical Review Prior Functional Status Medical History Reviewed Yes Communication Pt is limited in her communication but is able to state needs when necessary. She often studders/has a pressured start to a word. Mobility and Gait Pt granddaughter, pt ambulated around the house without assist often without AD. Pt uses a 4WW or w/c for community distances Activities of Daily Living and IADL's Pt needed max a for bathing but was able to dress self. Pt feeds self but relies on family for other simple ADLs. Pt's family takes care fo all IADLs. Prior Functional Level (Other details) Per the granddaughter, the patients other grandchildren were wanting to put her into a home so the pts daughter and granddaughter moved her out here from [place]. 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 Social History Household Members family Living Arrangements House Number of Floors (Floors) One Floor Number of Stairs To Enter/Railing? 3 CORNELIUS no hand rails Home Environment High Toilet,Tub/Shower Home Equipment Four Wheel Walker,Manual Wheelchair,Shower Seat without Backrest,Hand Held Shower Employment Status Retired Additional Social History Comment Pt lives with daughter and granddaughter; daughter is with her 7 and assists her with needs. M2 PT-IP Current Condition Start: 09/21/23 16:26 Freq: NEEDED Status: Active Protocol: Document 09/21/23 16:26 AB (Rec: 09/21/23 16:49 AB [id number]) Physical Therapy Current Condition Current Condition Evaluation Date 09/21/23 Treatment Diagnosis seizure; difficulty in walking Onset Date 09/20/23 M3 PT-IP Subjective Start: 09/21/23 16:26 Freq: NEEDED Status: Active Protocol: Document 09/21/23 16:26 AB (Rec: 09/21/23 16:49 AB [id number]) Subjective Physical Therapy Visit Type Type Initial Evaluation Visit Start Time 15:57 Visit Stop Time 16:21 Total Visit Minutes 24 Physical Therapy Visit Comments Patient Comments Pt presents seated in chair with daughter present. She is agreeable to PT evaluation this afternoon. Therapy Pain Assessment Pain When Pain Assessed At Rest Pain Present Pain Present Denied Pain M4 PT-IP Mobility and Gait Start: 09/21/23 16:26 Freq: NEEDED Status: Active Protocol: Document 09/21/23 16:26 AB (Rec: 09/21/23 16:49 AB [id number]) PT-Bed Mobility Assessment Rolling Type of Rolling Bilateral Level of Assist Standby Assistance Supine to Sit Supine to Sit Standby Assistance,1 Person Assistance,Bedrails Sit to Supine Sit to Supine Standby Assistance,1 Person Assistance Scooting Scooting to Edge of Bed Standby Assistance PT-Transfer Assessment Sit to and From Stand Sit to and from Stand Standby Assistance,Minimal Assistance,1 Person Assistance ,Use of Upper Extremities Equipment Transfer Assistive Device Gait Belt,Front Wheeled Walker Transfers Transfer Destination Bed,Chair,Toilet Transfer Technique Stand Step Pivot Transfer Ability Level of Assist Standby Assistance Comments Mobility Comments The pt is able to perform STS from chair with Neptali and verbal cues for proper hand placement and safety. Pt's daughter states she typically assists the pt by her arm to get to standing. PT provided education regarding pt handling for safety. Pt then ambulated as below. She then sat down on bed and performed bed mobility with SBA, using bed rails (which daughter states she has at home) to get back to sitting. Pt performed STS from bed with improved form. Pt ambulated to toilet and performed transfer with Neptali, and STS from toilet with Neptali due to lower surface. Pt returned to chair but requires constant cueing for safety. Gait Assessment Gait Gait Assistance Required: Minimum Assistance,1 Person Assist Distance (Feet) 15 Assistive Devices Assistive Device Gait Belt,Front Wheeled Walker Gait Deviations General Gait Pattern Ataxic,Decreased Stride Length ,Decreased Feet Clearance, Flexed Trunk Factors Limiting Gait Function Factors Limiting Gait Function Decreased Activity Tolerance, Decreased Strength,Difficulty Following Directions,Limited Range of Motion,Poor Balance, Poor Safety Awareness Comments Gait Comments The pt is able to ambulate in room 15ft with FWW and Neptali. She requires constant verbal cues and direction, with PT assisting pt with FWW due to poor safety awareness and difficulty following commands. The pt is unable to take steps with RLE and drags it by her side. She also demonstrates poor safety awareness, as she often tries to leave FWW or tries to turn to sit without FWW. Pt does not demonstrate enough safety awareness or stability to use 4WW, as she also had 1 instance of LOB requiring Neptali to recover. Stair Climbing Assessment Technique/Endurance Stair Climbing Direction Ascend and Descend Stair Climbing Technique Step to Step Number of Steps Climbed 1 Query Text: Stair Climbing Set # Repetitions (reps) 1 Comments Stair Climbing Comments Pt is able to ascend 1 step with FWW using step to technique with CGA. PT-Balance Assessment Sitting Balance and Reactions Static Sitting Balance Ability Good Dynamic Sitting Balance Ability Good Standing Balance and Reactions Static Standing Balance Ability Fair Dynamic Standing Balance Ability Poor Device Used FWW M5 PT-IP Objective Assessments Start: 09/21/23 16: Freq: NEEDED Status: Active Protocol: Document 09/21/23 16:26 AB (Rec: 09/21/23 16:49 AB [id number]) Orientation Orientation/Cognition Level of Alertness Alert Orientation Name Safety Awareness Decreased Safety Awareness Memory Description Short Term Impaired Comments Pt has difficulty following directions and demonstrates poor safety awareness as above . Gross Range of Motion Upper Extremity ROM Assessment Within Functional Limits Lower Extremity ROM Assessment Right Impaired Strength Upper Extremity Strength Assessment Within Functional Limits Lower Extremity Strength Assessment Right Impaired M6 PT-IP Treatment Start: 09/21/23 16: Freq: NEEDED Status: Active Protocol: Document 09/21/23 16:26 AB (Rec: 09/21/23 16:49 AB [id number]) Physical Therapy Treatment Education Education Provided Safety Brace Education Patient,Caregiver M7 PT-IP Assessment and Plan Start: 09/21/23 16: Freq: NEEDED Status: Active Protocol: Document 09/21/23 16:26 AB (Rec: 09/21/23 16:49 AB [id number]) PT Summary Assessment and Plan Potential Rehabilitation Potential Good Status of Condition at Evaluation Stable Summary Impairments Strength,Balance,Cognition,Bed Mobility,Transfers,Gait, Activity Tolerance Assessment Summary Amaya Frausto is a 78 year old female patient presenting with difficulty in walking. Today's PT evaluation revealed functional mobility deficits, gait deficits and imbalance which are contributing to her decreased level of function. While the pt is able to perform bed mobility with SBA, she required Neptali to perform STS, transfers and ambulation due to poor safety awareness, weakness and imbalance, as detailed above. Her gait impairments right sided weakness, which are a result of a previous stroke are also increasing her risk for falls. Based on her current level of function and assistance/ support from family, PT recommends discharge to home with 24/7 assistance and home health PT to improve these deficits in order to return to her highest level of function . She would benefit from continued skilled PT at this time, Goals Bed Mobility Goal Independent Transfer Goal Standby Assistance,Front Wheeled Walker Gait Goal Standby Assistance,Front Wheel Walker Gait Distance 50 Other Goals Pt to be able to ascend/ descend 1 step with SBA to show improving strength and stability. Pt to be able to ambulate 50ft with SBA and FWW without LOB to show improving activity tolerance. Days to Meet Goals 10 Frequency of Treatment Frequency Of Treatment Once a Day Treatment Plan Physical Therapy Treatment Plan Bed Mobility Training,Transfer Training,Gait Training, Therapeutic Exercise,Balance Retraining,Post Op Education, Discharge Planning,Hot or Cold Pack,Neuromuscular Re-ed, Coordination Retraining,Manual Therapy Precautions Other Precautions Fall risk Recommendations To Nursing Amount of Assist Needed 2 Person Assist Discharge Recommendations PT Discharge Recommendations Home with 19/06 Assist Available,Home Health Transportation Needs at Discharge Private Vehicle
--- NOTE | 2023-09-21 16:51 | P.DS_ITS ---
History of Present Illness History of Present Illness Chief complaint: Code Stroke Narrative: 78 years old female with history of hypertension, hyperlipidemia, hypothyroidism presented to the ER with altered mental status. As per EMS note the family last saw her at 14:45. When they saw her later the patient was unresponsive and called 911. In route the patient was noted to be nonverbal, no movements on the right side and her blood sugar was 122. Neuro code initiated and the patient had a CT scan which shows large old infarct seen on the left side of the brain. Telemetry neurologist on-call was consulted and stated that the patient presentation is unlikely to be stroke and most likely seizure from previous stroke. The patient received Keppra 500 mg IV and initiated 500 mg p.o. twice daily. Currently the patient is nonverbal and still left-sided residual weakness from previous stroke. Laboratory shows sodium 129, blood sugar 175, troponin negative, COVID 19 negative, creatinine 0.63, EtOH level negative. Initial blood pressure was 163/77 and pulse 108. Discharge Providers Provider Date of admission: 09/20/23 19:42 Discharge Date: 09/21/23 Consults: 09/20/23 19:29 Consult to Occupational Therapy Evaluate & Treat Comment: Physician Instructions: Evaluate and treat 09/21/23 13:38 Consult to Physical Therapy Evaluate & Treat Comment: Physician Instructions: Evaluate and Treat 09/21/23 13:42 Consult to Occupational Therapy Evaluate & Treat Comment: OT Physician Instructions: Home Health 09/21/23 14:14 Consult to Home Health Routine Comment: OT, PT Reason For Exam: Home Health Discharge provider: Gokul Loomis DO Summary Hospital Course Discharge Diagnosis: (1) Seizure: Status: Acute Plan: Seizure versus stroke, teleneuro favors seizure and rec keppra and neurology f/up -CTA and CT head negative other than bilateral carotid stenosis at 50% on L and 60-70% on R -ASA, Keppra 500 mg po BID -ECHO with EF 60-65%, mild-mod MR, mod-severe MR -MRI unable to be done due to internal hardware -Telemetry monitoring, Serial neurocheck -Cleared for home with PT -Monitor hemodynamic -Continue IV fluids -Ativan IV prn for seizure activity -passed swallow eval -needs outpatient neurology referral, prescribed 90 days of po keppra until then (2) Hypertension: Status: Acute Plan: Restarted amlodipine and lisinopril (3) Hyperlipidemia: Status: Acute Plan: Restart Lipitor, LDL 90 (4) Hypothyroidism: Status: Acute Plan: TSH 151 and T4 0.25 patient's daughter reports compliance raised dose to 125mcg daily from 100mcg, will need outpatient repeat TSH labs in 4-6 weeks Hospital Course: Admitted for possible stroke, but more likely seizure per teleneuro due to post- ictal state. Started on keppra po and had CT head x2 which were negative. MRI brain unable to be done due to internal hardware. PT cleared for home with PT. Echo without clot or PFO. Given script for po keppra until neurology f/up. TSH found to be 151 with T4 of 0.25, so dose raised from 100mcg to 125mcg and will need outpatient repeat thyroid labs in 4-6 weeks. Exam Vital Signs (past 8 hours): Oxygen Delivery Method Room Air Const General: cooperative and comfortable HENMT Head: normal to inspection, normocephalic and atraumatic Face and sinus: normal facial exam Mouth: oral mucosae normal and moist mucous membranes Throat: posterior oropharynx normal Eyes General: appearance normal, both eyes and all related structures Pupils: PERRL EOM: EOM intact bilaterally Neck Neck: normal visual inspection and full ROM Chest Chest: normal inspection of the chest Resp Effort & Inspection: normal respiratory effort and able to speak in complete sentences Auscultation: clear to auscultation bilaterally Cardio Palpation: normal PMI Rate: regular rate Rhythm: regular rhythm Heart Sounds: S1 normal and S2 normal GI Inspection: normal to inspection Palpation: soft and no hepatosplenomegaly Auscultation: normal bowel sounds Skin General: no rashes or lesions noted Lesions: no lesions Rashes: no rashes Trauma: no lacerations or abrasions Neuro General: patient alert, patient awake, patient oriented x3 and no focal motor deficits Cranial Nerves: CN's II-XI intact bilaterally Cognition: normal cognition Speech: speech normal Gait: normal gait Motor: muscle tone normal throughout Sensory Exam: no sensory deficits noted Extrem General: full ROM and no calf tenderness Psych Appearance: grossly normal Mental Status: mental status grossly normal Speech and Movement: speech and movement normal Objective Labs 09/20/23 16:15 09/21/23 05:15 Labs: Laboratory Results - last 24 hr 1009/20/23 09/21/23 16:15 16:35 05:15 WBC 7.1 RBC 3.25 L Hgb 10.7 L Hct 30.3 L MCV 93.4 MCH 32.9 MCHC 35.2 RDW 13.0 Plt Count 196 Neut % (Auto) 65.4 Lymph % (Auto) 25.8 Imperial % (Auto) 6.5 Eos % (Auto) 1.2 L Baso % (Auto) 1.1 Neut # (Auto) 4600 Lymph # (Auto) 1800 Imperial # (Auto) 500 Eos # (Auto) 100 Baso # (Auto) 100 PT 11.8 INR 1.0 APTT 26 Sodium 129 L 130 L Potassium 4.0 4.2 Chloride 96 L 98 Carbon Dioxide 23 28 BUN 19 H 15 Creatinine 0.63 0.67 Estimated GFR > 60 > 60 BUN/Creatinine Ratio 30.2 H 22.4 H Glucose 175 H 115 H Calcium 8.6 8.7 Magnesium 1.7 Total Bilirubin 0.2 0.2 AST 24 23 ALT 15 13 Alkaline Phosphatase 84 80 Total Creatine Kinase 80 Troponin I < 0.012 Total Protein 7.0 6.8 Albumin 3.6 3.5 Globulin 3.4 3.3 Albumin/Globulin Ratio 1.1 1.1 Triglycerides 138 Cholesterol 164 LDL Cholesterol, Calc 92 HDL Cholesterol 44 TSH 161 H Free T4 0.25 L Ethyl Alcohol < 10 SARS-CoV-2 (PCR) Negative PFSH Social History household members: family Smoking Status: Former smoker alcohol intake: current Discharge Plan Discharge Plan Provider Discharge Comment: We believe you had a seizure. You are now on anti- seizure medication until you can get in to see neurology. I've also increased your thyroid medication dose because your levels were very low. Discharge orders & Medications Discharge Orders: Discharge (Order); Ordered 09/21/23 Ordered By: Gokul Loomis Prescriptions: New levetiracetam 500 mg tablet 500 mg PO BID 90 Days Qty: 180 0RF levothyroxine [Synthroid] 125 mcg tablet 125 mcg PO DAILY Qty: 90 0RF Rx Instructions: take 1 hour before food on an empty stomach Continued atorvastatin 40 mg Tablet 40 mg PO BEDTIME aspirin 81 mg Tablet,Delayed Release (Dr/Ec) 81 mg PO DAILY amlodipine 10 mg tablet 10 mg PO DAILY nitroglycerin 0.4 mg Tablet, Sublingual 0.4 mg SUBLINGUAL Q5-15M PRN (Reason: cp) Rx Instructions: do not exceed 3 doses per episode lisinopril 40 mg tablet 40 mg PO DAILY ferrous gluconate 324 mg (37.5 mg iron) Tablet 324 mg PO Q OTHER DAY Discontinued levothyroxine 100 mcg tablet 100 mcg PO DAILY Visit Report/Discharge Packet Stand Alone Forms: Patient Portal/API, Stroke Signs & Symptoms Quality VTE Deep Vein Thrombosis/Pulmonary Embolism Present on Admission: No
--- NOTE | 2023-09-21 17:30 | PC.NURSE ---
Day shift: Discharge instructions gone over with patient and patient's daughter. PIV and tele removed prior to d/c. Patient's daughter stated understanding. All questions answered. All belongings with patient. Returned patient's home medications (that were at pharmacy) to patient's daughter. JERICA Villar escorted patient via wheelchair to exit.
== END 2023-09-21 18:26 | disposition home or self-care (01) | DRG 101 ==
LOC: ED 19:41 → AC 19:57
PROVIDERS: Internal Medicine; Student in an Organized Health Care Education/Training Program; Admitting Provider Internal Medicine; Emergency Provider Emergency Medicine; Visit Provider Internal Medicine
DX: R56.9 Unspecified convulsions (principal); G81.91 Hemiplegia, unspecified affecting right dominant side; R47.01 Aphasia; I10 Essential (primary) hypertension; E78.5 Hyperlipidemia, unspecified; E03.9 Hypothyroidism, unspecified; Z11.52 Encounter for screening for COVID-19; Z87.891 Personal history of nicotine dependence
CPT/HCPCS: 36415; 70450; 70496; 70498; 80053; 80061; 80320; 82550; 82962; 83735; 84439; 84443; 84484; 85025; 85610; 85730; 87635; 93005; 93010; 93306; 96365; 97162; 97166; 97535; 99285; 99291; C9803; J1650; J1953; J3475; Q9967

== ENCOUNTER 2024-09-08 03:33 | Inpatient (IN) | payer MEDICARE, MEDICAID, SELFPAY ==
[2023-09-20 21:07] VITALS: BMI 23.5
[2024-09-08] VITALS (42 sets, daily range): BP systolic 99–159; BP diastolic 51–74; PULSE 82–108; RESP 16–33; TEMP 36.6–37.4; O2SAT 87–100; BMI 24.0
--- NOTE | 2024-09-08 03:36 | DI.RAD.S_ITS ---
PROCEDURE: XR CHEST 1V INDICATIONS: short of breath TECHNIQUE: One view of the chest was acquired. COMPARISON: None. FINDINGS: Surgical changes and devices: Median sternotomy changes. Percutaneous aortic valvuloplasty. Lungs and pleura: Lungs are clear. No pleural effusions or pneumothorax. Mediastinum: Mediastinal contours appear normal. Heart size is normal. Bones and chest wall: No suspicious bony lesions. Overlying soft tissues appear unremarkable. IMPRESSION: No acute cardiopulmonary abnormality is seen. Final interpretation is concordant with preliminary report. Dictated by: Lilliam Sánchez M.D. on 09/08/2024 at 8:34 Approved by: Lilliam Sánchez M.D. on 09/08/2024 at 8:35
[2024-09-08] MEDS: NITROGLYCERIN 0.4 MG SL TAB SL (03:37)
--- NOTE | 2024-09-08 03:43 | ED_ITS ---
HPI - SOB/Dyspnea General Chief Complaint: Shortness of Breath/Dyspnea Stated Complaint: Resp. 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 According to EMS she has had a cough for last couple of days but tonight woke up with sudden onset of rhonchi. This also woke up her daughter as well. EMS reports that she was 79% on room air. She was placed on CPAP for transport which she did improve. Daughter states that she has had mild cough other family members have had upper respiratory like symptoms. But no real fever. She was her baseline status and till this evening Related Data Home Medications Medication Instructions Recorded Confirmed amlodipine 10 mg tablet 10 mg PO DAILY 09/20/23 09/08/24 aspirin 81 mg tablet,delayed 81 mg PO DAILY 09/20/23 09/08/24 release atorvastatin 40 mg tablet 40 mg PO BEDTIME 09/20/23 09/08/24 lisinopril 40 mg tablet 40 mg PO DAILY 09/20/23 09/08/24 nitroglycerin 0.4 mg sublingual 0.4 mg sublingual Q5-15M PRN cp 09/20/23 09/20/23 tablet levetiracetam 500 mg tablet 500 mg PO BID 09/08/24 09/08/24 (Keppra) Previous Rx's Medication Instructions Recorded levothyroxine 125 mcg tablet 125 mcg PO DAILY #90 tabs 09/21/23 (Synthroid) Allergies Allergy/AdvReac Type Severity Reaction Status Date / Time No Known Drug Allergies Allergy Verified 09/20/23 17:46 Patient History Medical History (Updated 09/08/24 @ 15:10 by Elma Rendon MD) Carotid artery disease Cerebrovascular accident (CVA) Hypothyroidism Hyperlipidemia Hypertension Seizure Social History (Updated 09/08/24 @ 15:11 by Elma Rendon MD) marital status: unmarried,single number of children: 9 household members: family lives independently: No caregiver/support person: Yes Smoking Status: Former smoker alcohol intake: current substance use type: does not use Smoking Status: Former smoker alcohol intake frequency: holidays/special occasions only Substance Use Type: does not use Exam Initial Vital Signs Initial Vital Signs: Vital Signs Fraction of Inspired Oxygen 100 09/08/24 03:30 GENERAL: Alert 79-year-old female on CPAP HEENT: Head atraumatic,EOMI, pupils reactive, face symmetric, moist mucous membranes CARDIOVASCULAR: Regular rate and rhythm without murmurs, rubs or gallops. RESPIRATORY: Coarse breath sounds bilaterally no wheezing ABDOMEN: Soft, nontender. Normoactive bowel sounds all 4 quadrants. No guarding or rebound. EXTREMITIES: Normal range of motion, no clubbing or edema. Neurovascularly intact NEUROLOGICAL: Moving all extremities SKIN: Warm, dry, no laceration, no petechiae, no rashes or lesions. Course Orders Ordered: Acetaminophen (Acetaminophen 325 Mg Tablet) 650 mg PO Q6H PRN PRN Reason: Fever/Mild Pain (1-3) Amlodipine Besylate (Amlodipine 5 Mg Tablet) 10 mg PO DAILY [facility] Aspirin (Aspirin Ec 81 Mg Tablet) 81 mg PO DAILY [facility] Atorvastatin Calcium (Atorvastatin 20 Mg Tablet) 40 mg PO BEDTIME [facility] Enoxaparin Sodium (Enoxaparin 40 Mg/0.4 Ml Syringe) 40 mg SUBCUT DAILY [facility] Last Admin: 09/08/24 09:11 Dose: 40 mg Documented By: ROGERIO Dextrose (D10w) 100 mls @ 999 mls/hr IV PRN PRN PRN Reason: Hypoglycemia Ceftriaxone Sodium 1,000 mg/ (Sodium Chloride) 100 mls @ 200 mls/hr IV Q24H [facility] Stop: 09/13/24 07:44 Last Infusion: 09/08/24 09:41 Dose: Infused Documented By: Admin: 09/08/24 09:11 Dose: 200 mls/hr Documented By: ROGERIO Azithromycin 500 mg/ Dextrose 250 mls @ 250 mls/hr IV Q24H [facility] Stop: 09/11/24 08:59 Last Infusion: 09/08/24 10:11 Dose: Infused Documented By: Admin: 09/08/24 09:11 Dose: 250 mls/hr Documented By: ROGERIO Insulin Human Lispro (Insulin Lispro 100 Unit/Ml 3ml Vial) 0 unit SUBCUT Q6HR [facility]; Protocol Levetiracetam (Levetiracetam 250 Mg Tablet) 500 mg PO BID [facility] Lisinopril (Lisinopril 20 Mg Tablet) 40 mg PO DAILY [facility] Naloxone HCl (Naloxone 0.4 Mg/Ml Vial) 0.2 mg IV Q2MIN PRN PRN Reason: Opiate Reversal Ondansetron HCl (Ondansetron 4 Mg/2 Ml Inj) 4 mg IV Q8HR PRN PRN Reason: Nausea And Vomiting Discontinued Medications Furosemide (Furosemide 40 Mg/4 Ml Vial) 20 mg IV NOW ONE Stop: 09/08/24 03:36 Last Admin: 09/08/24 03:51 Dose: 20 mg Documented By: RIANA Insulin Human Lispro (Insulin Lispro 100 Unit/Ml 3ml Vial) 0 unit SUBCUT ACHS [facility]; Protocol Last Admin: 09/08/24 12:45 Dose: 2 unit Documented By: ROGERIO Co-signed By: ORION Admin: 09/08/24 09:44 Dose: 2 unit Documented By: ROGERIO Co-signed By: ORION Nitroglycerin (Nitroglycerin 0.4 Mg Sl Tab) 0.4 mg SL NOW ONE Stop: 09/08/24 03:36 Last Admin: 09/08/24 03:37 Dose: 0.4 mg Documented By: RIANA Vital Signs Vital signs: Vital Signs - 8 hr 09/08/24 03:30 09/08/24 03:34 09/08/24 03:37 Temperature 98.1 F Pulse Rate 104 H 104 H Respiratory Rate 26 H Blood Pressure 143/70 H 143/70 H Pulse Oximetry 94 Oxygen Delivery Method CPAP Oxygen Flow Rate Fraction of Inspired Oxygen 100 09/08/24 03:38 09/08/24 03:40 09/08/24 03:40 Temperature Pulse Rate 98 H 104 H Respiratory Rate 28 H 29 H Blood Pressure 99/60 Pulse Oximetry 94 94 Oxygen Delivery Method Oxygen Flow Rate Fraction of Inspired Oxygen 09/08/24 03:41 09/08/24 03:47 09/08/24 03:47 Temperature Pulse Rate 108 H 101 H Respiratory Rate 29 H Blood Pressure 99/60 104/51 L Pulse Oximetry 90 L Oxygen Delivery Method Oxygen Flow Rate Fraction of Inspired Oxygen 09/08/24 04:00 09/08/24 04:00 09/08/24 04:30 Temperature Pulse Rate 92 H 92 H Respiratory Rate 30 H 27 H Blood Pressure 128/65 Pulse Oximetry 99 95 Oxygen Delivery Method Oxygen Flow Rate Fraction of Inspired Oxygen 09/08/24 04:30 09/08/24 05:00 09/08/24 05:00 Temperature Pulse Rate 94 H Respiratory Rate 25 H Blood Pressure 128/66 159/72 H Pulse Oximetry 100 Oxygen Delivery Method Oxygen Flow Rate Fraction of Inspired Oxygen 09/08/24 05:24 09/08/24 05:24 09/08/24 05:30 Temperature Pulse Rate 101 H Respiratory Rate 29 H Blood Pressure 151/74 H 138/63 Pulse Oximetry 99 Oxygen Delivery Method Oxygen Flow Rate Fraction of Inspired Oxygen 09/08/24 05:30 09/08/24 05:34 09/08/24 05:34 Temperature Pulse Rate 100 H 98 H Respiratory Rate 28 H 25 H Blood Pressure 141/67 H Pulse Oximetry 98 97 Oxygen Delivery Method High Flow Nasal Cannula Oxygen Flow Rate 6 Fraction of Inspired Oxygen MDM - SOB/Dyspnea Lab Data 09/08/24 03:45 09/08/24 03:45 Labs: Lab Results 09/08/24 09/08/24 09/08/24 Range/Units 03:45 04:55 06:10 WBC 9.9 (4.5-11.0) X10^3/uL RBC 3.39 L (4.0-5.2) X10^6/uL Hgb 10.9 L (12.0-16.0) g/dL Hct 31.7 L (36-46) % MCV 93.5 (80-100) fL MCH 32.2 (26-34) PG MCHC 34.4 (30-36) % RDW 13.2 (11.6-14.8) % Plt Count 268 (150-400) X10^3/uL Neut % (Auto) 76.8 H (50-75) % Lymph % (Auto) 18.4 L (25-40) % [place] % (Auto) 3.0 (3-14) % Eos % (Auto) 1.1 L (2-4) % Baso % (Auto) 0.7 (0-2) % Neut # (Auto) 7600 H (9438-6119) /uL Lymph # (Auto) 1800 (5895-1858) /uL [place] # (Auto) 300 (0-900) /uL Eos # (Auto) 100 (0-450) /uL Baso # (Auto) 100 (0-100) /uL PT 12.3 (9.4-12.5) SECONDS INR 1.1 (0.9-1.3) APTT 36 (25.1-36.5) SECONDS D-Dimer 2199 H (<500) ng/ml ABG Sample Site Right radial ABG pH 7.32 L (7.35-7.45) ABG pCO2 54.2 H (35-45) mmHg ABG pO2 136 H (80-100) mmHg ABG HCO3 28 H (23-27) mmol/L ABG Total CO2 29 H (23-27) mmol/L ABG O2 Saturation 99 (95-100) % ABG Base Excess 1.3 (-2-3) mmol/L Butch Test Positive Respiration Rate 18 O2 Delivery Device Bipap FiO2 % 85 % % Sodium 135 L (137-145) mmol/L Potassium 3.7 (3.4-5.1) mmol/L Chloride 100 (98-107) mmol/L Carbon Dioxide 29 (22-32) mmol/L BUN 12 (7-17) mg/dL Creatinine 0.63 (0.52-1.04) mg/dL Estimated GFR > 60 (>60) mL/min BUN/Creatinine Ratio 19.0 (6-22) Glucose 224 H (80-110) mg/dL Hemoglobin A1c 7.5 H (4.0-6.0) % Lactate 1.6 (0.7-2.1) mmol/L Calcium 8.5 (8.4-10.2) mg/dL Total Bilirubin 0.5 (0.2-1.3) mg/dL AST 78 H (14-36) IU/L ALT 46 H (<35) IU/L Alkaline Phosphatase 118 (38-126) U/L Total Creatine Kinase 270 H (30-135) U/L Troponin I < 0.012 < 0.012 (0.01-0.034) ng/mL NT-Pro-B Natriuret Pep 347 (<450) pg/mL Total Protein 8.3 H (6.3-8.2) g/dL Albumin 4.0 (3.5-5.0) g/dL Globulin 4.3 H (1.7-4.1) g/dL Albumin/Globulin Ratio 0.9 L (1.0-2.8) Lipase 39 (23-300) U/L Procalcitonin 0.076 (<0.5) ng/mL Chlamy pneumoniae PCR Not detected (Not Detect) Adenovirus (PCR) Not detected (Not Detect) B. pertussis DNA (PCR) Not detected (Not Detect) B.parapertussis DNA PCR Not detected (Not Detecte) Coronavirus OC43 (PCR) Not detected (Not Detect) Coronavirus HKU1 (PCR) Not detected (Not Detect) Coronavirus 229E (PCR) Not detected (Not Detect) SARS-CoV-2 (PCR) Not detected (Not Detecte) Coronavirus NL63 (PCR) Not detected (Not Detect) Human Metapneumovir PCR Not detected (Not Detect) Influenza Type A (PCR) Not detected (Not Detect) Influenza Type B (PCR) Not detected (Not Detect) M. pneumoniae (PCR) Not detected (Not Detect) Parainfluenza 1 (PCR) Not detected (Not Detect) Parainfluenza 2 (PCR) Not detected (Not Detect) Parainfluenza 3 (PCR) Not detected (Not Detect) Parainfluenza 4 (PCR) Not detected (Not Detect) RSV (PCR) Not detected (Not Detect) Entero/Rhino (PCR) Detected H (Not Detect) Point of Care Testing Glucose POC 245 Imaging Data Chest x-ray: Radiologist's Impression: No acute cardiopulmonary process ECG Data Attestation: I personally reviewed and interpreted this ECG as follows: Prior ECG tracings: available for review Interpretation: Sinus rhythm rate 94 ID interval 114 QRS [address] depression noted in precordial leads similar to priors MDM Narrative Medical decision making narrative: [facility] CC: Shortness of breath Complicating co-morbidities: Seizure history hyperlipidemia Corroborating data: EMS, daughter Medical records reviewed: Previous admission in August Differential considered: Flash pulmonary edema, congestive heart failure COPD pneumonia pulmonary embolism Exam documented above, pertinent findings include: Acute respiratory distress and speak although doing better on CPAP coarse breath sounds bilaterally with rales no significant wheezing tolerating CPAP well no peripheral edema abdomen is soft Lab Test results independently reviewed as above. Pertinent findings: Respiratory panel positive for entero/rhinovirus WBC 9.9 hemoglobin 10.9 hematocrit 31.7 Sodium 135 potassium 3.7 chloride 100 bicarb 29 BUN 12 creatinine 0.6 Bilirubin your ALT 46 Troponin negative, BNP 347 D-dimer 2199 Independently reviewed EKG as above sinus rhythm with persistent ST depressions similar to prior Imaging studies independently reviewed: Chest x-ray no acute cardiopulmonary process no pleural effusion CT angio no pulmonary embolism right pleural effusion bibasilar consolidation atelectasis versus pulmonary infiltrates Consultations: Dr. rendon accepts patient Treatments: Nitro Lasix BiPAP Re-evaluations: Patient's breathing has improved significantly. She has not had any urine output but appears much more comfortable. She still has significant crackles Discussion: 79-year-old female presents today with sudden onset shortness of. There are some family members who had some upper respiratory like symptoms. She is afebrile. She initially was hypoxic and required CPAP with EMS. She remains comfortable on BiPAP here. BNP troponin negative without evidence of fluid overload. She is found to be positive for entero/rhinovirus. She was able to be weaned down to nasal cannula but still was on at 6 L nasal cannula. Continues not to have significant respiratory distress here. CT does show mild right pleural effusion with out pulmonary embolism/ Discharge Plan Departure Patient Disposition: Admitted As Inpatient Clinical Impression: Pleural effusion, Rhinovirus infection, Hypoxia Admit Date/Time: 09/08/24 07:14 Admit Provider: Elma Rendon
--- NOTE | 2024-09-08 03:49 | PC.NURSE ---
pt placed on Bipap per RT upon arrival with settings per RT
[2024-09-08] MEDS: FUROSEMIDE 40 MG/4 ML VIAL 20 MG IV (03:51)
[2024-09-08 03:55] LABS: Add Manual Diff / Slide Review NO; Basophils Absolute Auto 100 /uL (0-100); Basophils Percent Auto 0.7 % (0-2); Eosinophils Absolute Auto 100 /uL (0-450); Eosinophils Percent Auto 1.1 % (2-4); Hematocrit 31.7 % (36-46); Hemoglobin 10.9 g/dL (12.0-16.0); Lymphocytes Absolute Auto 1800 /uL (1100-4500); Lymphocytes Percent Auto 18.4 % (25-40); Mean Corpuscular HGB Conc 34.4 % (30-36); Mean Corpuscular Hemoglobin 32.2 PG (26-34); Mean Corpuscular Volume 93.5 fL (80-100); Monocytes Absolute Auto 300 /uL (0-900); Neutrophils Absolute Auto 7600 /uL (1500-7000); Neutrophils Percent Auto 76.8 % (50-75); Platelet Count 268 X10^3/uL (150-400); Red Blood Cell Count 3.39 X10^6/uL (4.0-5.2); Red Cell Distribution Width 13.2 % (11.6-14.8); White Blood Cell Count 9.9 X10^3/uL (4.5-11.0)
--- NOTE | 2024-09-08 03:57 | EKG_ITS ---
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
[2024-09-08 04:01] LABS: INR 1.1 (0.9-1.3); Prothrombin Time 12.3 SECONDS (9.4-12.5)
[2024-09-08 04:03] LABS: PTT Partial Thromboplastin Tim 36 SECONDS (25.1-36.5)
[2024-09-08 04:06] LABS: Lactate (Lactic Acid) 1.6 mmol/L (0.7-2.1)
[2024-09-08 04:07] LABS: Alanine Aminotransferase 46 IU/L (<35); Albumin Globulin Ratio 0.9 (1.0-2.8); Alkaline Phosphatase 118 U/L (38-126); Aspartate Aminotransferase 78 IU/L (14-36); Bilirubin Total 0.5 mg/dL (0.2-1.3); Blood Urea Nitrogen 12 mg/dL (7-17); Calcium 8.5 mg/dL (8.4-10.2); Carbon Dioxide 29 mmol/L (22-32); Chloride 100 mmol/L (98-107); Creatine Kinase 270 U/L (30-135); Estimated Glomerular Filt Rate > 60 mL/min (>60); Globulin 4.3 g/dL (1.7-4.1); Glucose 224 mg/dL (80-110); HEMOLYSIS < 15 (0-50); Lipase 39 U/L (23-300); Potassium 3.7 mmol/L (3.4-5.1); Sodium 135 mmol/L (137-145); Total Protein 8.3 g/dL (6.3-8.2)
--- NOTE | 2024-09-08 04:08 | PC.NURSE ---
[employer] note: EKG done. Placed patient on a purewick per RN's request.
[2024-09-08 04:16] LABS: NT-proBNP (BNP-Adult 18+) 347 pg/mL (<450)
[2024-09-08 04:19] LABS: Troponin I < 0.012 ng/mL (0.01-0.034)
[2024-09-08 04:25] LABS: Procalcitonin 0.076 ng/mL (<0.5)
[2024-09-08 04:42] LABS: Adenovirus Not Detected (Not Detect); B. parapertussis Not Detected (Not Detecte); Bordetella pertussis Not Detected (Not Detect); Chlamydophila pneumoniae Not Detected (Not Detect); Coronavirus 229E Not Detected (Not Detect); Coronavirus HKU1 Not Detected (Not Detect); Coronavirus NL 63 Not Detected (Not Detect); Coronavirus OC43 Not Detected (Not Detect); Human Metapneumovirus Not Detected (Not Detect); Human Rhinovirus/Enterovirus Detected (Not Detect); Influenza A Not Detected (Not Detect); Influenza B Not Detected (Not Detect); Mycoplasma pneumoniae Not Detected (Not Detect); Parainfluenza Virus 1 Not Detected (Not Detect); Parainfluenza Virus 2 Not Detected (Not Detect); Parainfluenza Virus 3 Not Detected (Not Detect); Parainfluenza Virus 4 Not Detected (Not Detect); Respiratory Syncytial Virus Not Detected (Not Detect); SARS- CoV-2 Not Detected (Not Detecte)
[2024-09-08 05:05] LABS: D Dimer 2199 ng/ml (<500)
--- NOTE | 2024-09-08 05:08 | DI.CT.S_ITS ---
PROCEDURE: CT ANGIO CHEST PE PROTOCOL INDICATIONS: hypoxia TECHNIQUE: After the administration of intravenous contrast, 2 mm thick sections acquired from the pulmonary apices to the posterior costophrenic angles. 3-dimensional maximum intensity projection (MIP) coronal and sagittal reformats were then acquired through the thorax. For radiation dose reduction, the following was used: automated exposure control, adjustment of mA and/or kV according to patient size. COMPARISON: [facility], CR, XR CHEST 1V, 09/08/2024, 3:43. FINDINGS: Image quality: Diagnostic. Pulmonary arteries: Pulmonary arteries are normal in size, and demonstrate no intraluminal filling defects to suggest central pulmonary embolism. Lower Neck: No enlarged lymph nodes. Thyroid: No thyroid nodules which require sonographic follow up, per consensus guidelines. Axillae: No enlarged lymph nodes. Chest Wall: Unremarkable. Bones: Age-appropriate bony degenerative changes are seen. Accentuated thoracic kyphosis is seen. Lungs and Pleura: There is a small right-sided pleural effusion. Focal pleural thickening can be seen posteriorly on the right, with associated pleural calcification. Mild dependent atelectasis can be seen. No pneumothorax is seen. Heart: Heart size is normal. No pericardial effusion. There is a stent seen within the ascending thoracic aorta There is dense coronary artery calcification. Thoracic Vessels: No aortic aneurysm. Mediastinum and Molly: No enlarged lymph nodes. Esophagus: No wall thickening. No hiatal hernia. Upper Abdomen: Visualized upper abdomen solid organs and bowel loops appear normal. IMPRESSION: No pulmonary embolus. There is a small right-sided pleural effusion. Mild dependent consolidation can be seen on both sides. There is focal consolidation seen involving the left posterior lung, including pleural calcification. Atelectasis is felt most likely, although differential diagnosis includes infectious infiltrate and neoplasm. Please consider short-term follow-up. Additional findings: Stent seen within the ascending thoracic aorta Dense coronary artery calcification Note: No significant discrepancy from the preliminary report. Dictated by: Mikey Spence M.D. on 09/08/2024 at 8:24 Approved by: Mikey Spence M.D. on 09/08/2024 at 8:30
[2024-09-08 05:13] LABS: Allen Test for ABG Passed? Positive; Base Excess ABG 1.3 mmol/L (-2-3); Blood Gas Collection Site Right Radial; Delivery System BiPAP; HCO3 ABG 28 mmol/L (23-27); Oxygen Saturation ABG 99 % (95-100); PCO2 ABG 54.2 mmHg (35-45); PO2 ABG 136 mmHg (80-100); Respiratory Rate 18; TCO2 ABG 29 mmol/L (23-27); pH ABG 7.32 (7.35-7.45)
--- NOTE | 2024-09-08 05:38 | PC.NURSE ---
pt's brief changed and purewick repositioned, then pt transported to CT on monitor and O2 with RN and RT
[2024-09-08 06:50] LABS: Troponin I < 0.012 ng/mL (0.01-0.034)
[2024-09-08 08:07] LABS: Hemoglobin A1C% w Est Avg Glu 7.5 % (4.0-6.0)
[2024-09-08] MEDS: AZITHROMYCIN 500 MG in DEXTROSE 5% IN WATER 250 ML 250 MG IV (09:11)
[2024-09-08] MEDS: ENOXAPARIN 40 MG/0.4 ML SYRINGE SUBCUT (09:11)
[2024-09-08] MEDS: cefTRIAXone 1,000 MG in SODIUM CHLORIDE 0.9% 100 ML 200 MG IV (09:11)
--- NOTE | 2024-09-08 09:43 | RT ---
Called to 226 with RN at bedside, Pt just transferred from ED, SpO2 <90% on NRB @ 15L, HR 94 Pt appears calm and comfortable, assessed Pt extremeties and used ear for SpO2 read, sats improved. Checked in on Pt after 20 minutes and Pt began to desaturate with this RT at bedside, tried different locations for SpO2 desaturation confirmed, placed Pt on 10L blue-top HFNC, worked with Pt on secretion clearance, Pt has weak cough and does not tolerate oral suction very well. On 10L blue-top HFNC Pt SpO2 93%, left Pt with RN at bedside.
[2024-09-08] MEDS: INSULIN LISPRO 100 UNIT/ML 3ML VIAL SUBCUT ×2 (09:44→12:45)
--- NOTE | 2024-09-08 14:57 | P.HP_ITS ---
History of Present Illness History of Present Illness Chief complaint: Resp. 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 History is obtained from the patient's daughter as the patient is unable to provide any history. Patient's daughter notes that she moved the patient here from [place] 2 years ago. Prior to that she was living with her son. Daughter notes that she and the patient sleep in the same room together. Patient and the daughter's fiance have both been struggling with a cough and sore throat over the past several days. They have also both complained of headaches. At approximately 2:00 a.m. this morning, the patient began coughing very hard and seemed to be struggling to breathe. The patient's daughter subsequently called EMS and had the patient transferred to the emergency department. On arrival to the emergency department, patient had O2 saturations of 79% in room air. She was placed on BiPAP, given 20 mg of IV Lasix, 0.4 mg of sublingual nitroglycerin. Chest x-ray showed no acute cardiopulmonary process. Labs revealed a normal white blood cell count at 9.9, hemoglobin 10.9, platelets 268. D-dimer was 2199. ABG revealed a pH of 7.32, pCO2 54, bicarb 29 on BiPAP. Sodium was 135, glucose 224. AST was elevated at 78, ALT elevated at 46. Troponin was less than 0.012 and remain negative on repeat. Respiratory viral panel was positive for entero/rhino virus. BNP was normal at 347. CT pulmonary angiogram was subsequently performed and revealed no evidence of pulmonary embolism. There was a small right-sided pleural effusion. There was mild dependent consolidation in both lungs. There was a focal consolidation in the left posterior lung including pleural calcification. Atelectasis was felt to be most likely, but differential diagnosis includes infectious infiltrate and neoplasm. Furthermore there was a thoracic aortic stent noted and dense coronary artery calcification. While in the emergency department patient was able to be successfully weaned off of the BiPAP on to 5 L nasal cannula. Prior to transfer to the floor, she was weaned to 3 L. After arrival to the medical unit, patient did fall to sleep and subsequently dropped back down into the 70s on 3 L. She required non-rebreather mask to get her saturations back up to the 90s. Time of my evaluation, patient is presently drowsy but cooperative. Currently on 10 liters/minute via face mask. [facility] Medical History (Updated 09/08/24 @ 15:10 by Elma Leahy MD) Carotid artery disease Cerebrovascular accident (CVA) Hypothyroidism Hyperlipidemia Hypertension Seizure Social History (Updated 09/08/24 @ 15:11 by Elma Leahy MD) marital status: unmarried,single number of children: 9 household members: family lives independently: No caregiver/support person: Yes Smoking Status: Former smoker alcohol intake: current substance use type: does not use Meds Home Medications and Allergies Home Medications Medication Instructions Recorded Confirmed Type amlodipine 10 mg tablet 10 mg PO DAILY 09/20/23 09/20/23 History aspirin 81 mg tablet,delayed 81 mg PO DAILY 09/20/23 09/20/23 History release atorvastatin 40 mg tablet 40 mg PO BEDTIME 09/20/23 09/20/23 History ferrous gluconate 324 mg (37.5 mg 324 mg PO Q OTHER DAY 09/20/23 09/20/23 History iron) tablet lisinopril 40 mg tablet 40 mg PO DAILY 09/20/23 09/20/23 History nitroglycerin 0.4 mg sublingual 0.4 mg sublingual Q5-15M PRN cp 09/20/23 09/20/23 History tablet levothyroxine 125 mcg tablet 125 mcg PO DAILY #90 tabs 09/21/23 Rx (Synthroid) Allergies Allergy/AdvReac Type Severity Reaction Status Date / Time No Known Drug Allergies Allergy Verified 09/20/23 17:46 Review of Systems Review of Systems Narrative: Unable to obtain review of systems due to encephalopathy; daughter does report patient eats a soft diet and meds are crushed, she denies any history of coughing with intake Exam Vital Signs (past 8 hours): - 09/08/24 07:00 09/08/24 07:00 09/08/24 07:19 Temperature Pulse Rate 105 H Respiratory Rate 23 Blood Pressure 151/72 H Pulse Oximetry 96 Oxygen Delivery Method Nasal Cannula Oxygen Flow Rate Fraction of Inspired Oxygen 09/08/24 07:30 09/08/24 07:30 09/08/24 08:00 Temperature Pulse Rate 102 H 93 H Respiratory Rate 22 19 Blood Pressure 134/70 Pulse Oximetry 94 100 Oxygen Delivery Method Oxygen Flow Rate Fraction of Inspired Oxygen 09/08/24 08:00 09/08/24 08:09 09/08/24 08:09 Temperature Pulse Rate 96 H Respiratory Rate 21 Blood Pressure 129/60 144/67 H Pulse Oximetry 100 Oxygen Delivery Method Nasal Cannula Oxygen Flow Rate 4 Fraction of Inspired Oxygen 09/08/24 09:45 09/08/24 09:47 09/08/24 13:30 Temperature 98.8 F Pulse Rate 94 H 83 Respiratory Rate 23 18 Blood Pressure 145/61 H 107/58 L Pulse Oximetry 93 93 94 Oxygen Delivery Method High Flow Nasal Cannula Oxygen Flow Rate 10 10 10 Fraction of Inspired Oxygen 60 Fraction of Inspired Oxygen 60 SaO2/FiO2 Ratio 155 Oxygen Delivery Method High Flow Nasal Cannula Oxygen Flow Rate 10 Narrative Exam Narrative: GEN: Somnolent elderly female, oriented to self, no acute distress HEENT: Normocephalic, face symmetric, pupils equal round reactive to light, extraocular movements intact, sclerae anicteric, conjunctiva clear, nares patent, oropharynx reveals an intact soft and hard palate with moist mucous membranes NECK: Supple, no lymphadenopathy, thyroid without enlargement or nodularity CHEST: Respiratory excursions symmetric, diminished and coarse but clear to auscultation bilaterally CV: Regular rate and rhythm, no murmurs, rubs, gallops, PMI nondisplaced ABD: Soft, nontender, nondistended, bowel sounds present in all 4 quadrants, no organomegaly or masses appreciated EXTR: Warm, well perfused, no clubbing/cyanosis/edema SKIN: Warm and dry, without rash NEURO: Difficult to assess as patient has limited ability to follow commands PSYCH: Unable to assess Objective Labs 09/08/24 03:45 09/08/24 03:45 Labs: Laboratory Results - last 24 hr 09/08/24 09/08/24 09/08/24 03:45 04:55 06:10 WBC 9.9 RBC 3.39 L Hgb 10.9 L Hct 31.7 L MCV 93.5 MCH 32.2 MCHC 34.4 RDW 13.2 Plt Count 268 Neut % (Auto) 76.8 H Lymph % (Auto) 18.4 L [place] % (Auto) 3.0 Eos % (Auto) 1.1 L Baso % (Auto) 0.7 Neut # (Auto) 7600 H Lymph # (Auto) 1800 [place] # (Auto) 300 Eos # (Auto) 100 Baso # (Auto) 100 PT 12.3 INR 1.1 APTT 36 D-Dimer 2199 H ABG Sample Site Right radial ABG pH 7.32 L ABG pCO2 54.2 H ABG pO2 136 H ABG HCO3 28 H ABG Total CO2 29 H ABG O2 Saturation 99 ABG Base Excess 1.3 Butch Test Positive Respiration Rate 18 O2 Delivery Device Bipap FiO2 % 85 % Sodium 135 L Potassium 3.7 Chloride 100 Carbon Dioxide 29 BUN 12 Creatinine 0.63 Estimated GFR > 60 BUN/Creatinine Ratio 19.0 Glucose 224 H Hemoglobin A1c 7.5 H Lactate 1.6 Calcium 8.5 Total Bilirubin 0.5 AST 78 H ALT 46 H Alkaline Phosphatase 118 Total Creatine Kinase 270 H Troponin I < 0.012 < 0.012 NT-Pro-B Natriuret Pep 347 Total Protein 8.3 H Albumin 4.0 Globulin 4.3 H Albumin/Globulin Ratio 0.9 L Lipase 39 Procalcitonin 0.076 Chlamy pneumoniae PCR Not detected Adenovirus (PCR) Not detected B. pertussis DNA (PCR) Not detected B.parapertussis DNA PCR Not detected Coronavirus OC43 (PCR) Not detected Coronavirus HKU1 (PCR) Not detected Coronavirus 229E (PCR) Not detected SARS-CoV-2 (PCR) Not detected Coronavirus NL63 (PCR) Not detected Human Metapneumovir PCR Not detected Influenza Type A (PCR) Not detected Influenza Type B (PCR) Not detected M. pneumoniae (PCR) Not detected Parainfluenza 1 (PCR) Not detected Parainfluenza 2 (PCR) Not detected Parainfluenza 3 (PCR) Not detected Parainfluenza 4 (PCR) Not detected RSV (PCR) Not detected Entero/Rhino (PCR) Detected H Assessment & Plan Assessment & Plan narrative: 1. Acute hypoxic respiratory failure Secondary to rhino virus, possible underlying community-acquired pneumonia, and right pleural effusion with compressive atelectasis. At this time, will continue supplemental oxygen. Will add Rocephin and azithromycin empirically. RN did try a bite of pudding and patient showed evidence of aspiration. Will make her NPO for now. Will have speech therapy assess for safest diet. Discussed this with daughter and she expressed understanding. Patient does have a history of tobacco dependence but daughter denies any known history of COPD. She also denies any known history of obstructive sleep apnea. She does not utilize oxygen at baseline. Will work on improving pulmonary hygiene. If she has persistent respiratory issues, would benefit from a diagnostic thoracentesis. 2. Rhinovirus Patient has been symptomatic at home with headache, sore throat, and cough. We will continue supportive care. 3. Hyperglycemia No known history of diabetes. Blood sugar was 224 on arrival. Placed on fingersticks and sliding scale. Will place on a controlled carb diet once she is safely able to take oral intake. Will obtain an A1c. 4. Transaminitis She does have mild LFT elevation. This is new from her last visit a year ago. Will repeat LFT is tomorrow and follow. 5. Elevated D-dimer No evidence of PE on CT pulmonary angiogram. Likely elevated secondary to acute pulmonary infection. 6. Anemia Hemoglobin is 10.9 which appears consistent with baseline. 7. Left lung focal infiltrate versus mass This should be followed up for resolution. She does have a longstanding history of tobacco dependence. 8. Cerebrovascular disease Will obtain PT and OT evaluations. 9. History of seizure It is unclear if she remains on Keppra at this time. Await medication reconciliation. 10. Hypothyroidism Resume levothyroxine once dose can be confirmed 11. Hypertension Blood pressures have been primarily mildly hypertensive since arrival. Await medication reconciliation and will resume her usual medications. Code status Full per daughter who is her proxy Prophylaxis Start on Lovenox Disposition Admit to acute care Time-Based Coding :: [TOTAL MINUTES] spent with patient and on the chart (including review of chart, obtaining history, exam, reviewing outside data, placing orders, documenting exam and treatment plan, and counseling patient) on [DATE].
[2024-09-08 18:50] LABS: Free T4, Direct Thyroxine < 0.07 ng/dL (0.78-2.19)
[2024-09-08] MEDS: SODIUM CHLORIDE 0.9% FLUSH 10 ML IV (20:27)
[2024-09-08] MEDS: levETIRAcetam 500 MG in SODIUM CHLORIDE 0.9% 100 ML 420 MG IV (20:27)
[2024-09-09] VITALS (15 sets, daily range): BP systolic 83–112; BP diastolic 45–58; PULSE 61–77; RESP 14–21; TEMP 36–37.1; O2SAT 92–100
--- NOTE | 2024-09-09 01:34 | PC.NURSE ---
Addendum entered by Brigida Ford R.N. 09/09/24 07:02: Notified MD of low urine output (dark & cloudy) & soft BP 99/56. IVF ordered. Original Note: SpO2 desat to mid 80's on 15L NC. Patient required sternal rub to awaken. Placed patient on 15L non-rebreather mask, SpO2 back up to 90's after a few minutes. Notified RT. Coarse crackles heard upon auscultation. Encouraged patient to cough, suctioned phlegm. Patient currently on 10L oximask, SpO2 97%.
[2024-09-09 05:02] LABS: Add Manual Diff / Slide Review NO; Basophils Absolute Auto 100 /uL (0-100); Basophils Percent Auto 0.7 % (0-2); Eosinophils Absolute Auto 0 /uL (0-450); Eosinophils Percent Auto 0.2 % (2-4); Hematocrit 26.2 % (36-46); Hemoglobin 9.2 g/dL (12.0-16.0); Lymphocytes Absolute Auto 1000 /uL (1100-4500); Lymphocytes Percent Auto 12.3 % (25-40); Mean Corpuscular HGB Conc 35.3 % (30-36); Mean Corpuscular Hemoglobin 33.1 PG (26-34); Mean Corpuscular Volume 93.6 fL (80-100); Monocytes Absolute Auto 300 /uL (0-900); Monocytes Percent Auto 3.8 % (3-14); Neutrophils Absolute Auto 7000 /uL (1500-7000); Platelet Count 210 X10^3/uL (150-400); Red Cell Distribution Width 12.9 % (11.6-14.8); White Blood Cell Count 8.5 X10^3/uL (4.5-11.0)
[2024-09-09 05:12] LABS: Alanine Aminotransferase 30 IU/L (<35); Albumin 3.7 g/dL (3.5-5.0); Alkaline Phosphatase 93 U/L (38-126); Aspartate Aminotransferase 45 IU/L (14-36); BUN Creatinine Ratio 22.3 (6-22); Bilirubin Total 0.6 mg/dL (0.2-1.3); Blood Urea Nitrogen 21 mg/dL (7-17); Calcium 8.2 mg/dL (8.4-10.2); Carbon Dioxide 31 mmol/L (22-32); Chloride 98 mmol/L (98-107); Estimated Glomerular Filt Rate > 60 mL/min (>60); Globulin 3.7 g/dL (1.7-4.1); Glucose 118 mg/dL (80-110); HEMOLYSIS < 15 (0-50); Potassium 3.5 mmol/L (3.4-5.1); Sodium 136 mmol/L (137-145); Total Protein 7.4 g/dL (6.3-8.2)
[2024-09-09] MEDS: SODIUM CHLORIDE 0.9% 1,000 ML 75 ML IV ×2 (07:15→21:11)
[2024-09-09] MEDS: cefTRIAXone 1,000 MG in SODIUM CHLORIDE 0.9% 100 ML 200 MG IV (09:05)
[2024-09-09] MEDS: ENOXAPARIN 40 MG/0.4 ML SYRINGE SUBCUT (10:17)
[2024-09-09] MEDS: AZITHROMYCIN 500 MG in DEXTROSE 5% IN WATER 250 ML 250 MG IV (10:17)
[2024-09-09] MEDS: levETIRAcetam 500 MG in SODIUM CHLORIDE 0.9% 100 ML 420 MG IV ×2 (10:20→21:04)
--- NOTE | 2024-09-09 11:44 | OT.IPNOTE ---
OT eval and treat order recieved. Chart reviewed and went to see pt for OT services. Granddaughter present and states that pt was dependent in all ADLs except eating. Pt speaks minimally and sometimes is lifted for transfers and other times pt can stand and take a few steps. Will discharge OT eval orders as pt is dependent with most care. No further OT needs.
--- NOTE | 2024-09-09 12:32 | PT-IP ANOTE ---
PT consult received. PT reviewed chart and checked on pt. Pt is sleeping and nsg reports that pt has had low BP, is lethargic and has some confusion and recommends hold PT at this time. PT received PLOF information from OT who spoke to grand-daughter. PT will put this information in the worklist for future assessment if pt is appropriate.
--- NOTE | 2024-09-09 12:43 | PC.NURSE ---
Addendum entered by Alisia Hill R.N. 09/09/24 18:36: Patient only had 50cc of urine output this shift. is aware, we bladder scanned patient and she had 116cc in her bladder. She is on NS at 75cc/hr and did get a bolus of 1000cc of NS earlier today. She is still groggy and npo. We will assess her po intake with speech again tomorrow. Addendum entered by Alisia Hill R.N. 09/09/24 15:31: Patient just given solucortef 100mg iv and 200mcg of synthroid iv, patients free t4 level was low and tsh was high in the 200s. Patient is resting with her oxy mask on and satting in the [facility] 90s. 0 sob noted. Original Note: Patient is npo as she is lethargic and not waking up alot. She also has a weak gag reflex and unable to cough up her sputum. We have a Yanker suction to help relieve some of the secretions when needed. Patient had a bed bath and bed change. We are also floating her heels, with heel protectors on and she has a waffle cushion under her bottom. Family into see patient earlier, her blood sugar is 161.
[2024-09-09] MEDS: SODIUM CHLORIDE 0.9% 1,000 ML 1000 ML IV (13:18)
--- NOTE | 2024-09-09 14:00 | P.PN_ITS ---
Subjective Subjective Interval history: Hypotensive today, more lethargic difficult to arounse. On IV fluids, gave 1L NS bolus this afternoon. TSH yesterday was 208 with undetectable free t4. Started treatment for possible myxedema coma today. Exam Vital Signs (past 8 hours): - 09/09/24 07:34 09/09/24 08:00 09/09/24 12:00 Temperature 98.2 F 96.8 F L Pulse Rate 77 62 Respiratory Rate 21 14 Blood Pressure 91/50 L 85/51 L Pulse Oximetry 95 100 99 Oxygen Delivery Method Oximask Oxygen Flow Rate 4 4 4 Fraction of Inspired Oxygen 32 Fraction of Inspired Oxygen 32 SaO2/FiO2 Ratio 296 Oxygen Delivery Method Oximask Oxygen Flow Rate 4 Narrative Exam Narrative: GEN: Somnolent elderly female, oriented to self, no acute distress HEENT: Normocephalic, face symmetric, pupils equal round reactive to light, extraocular movements intact, sclerae anicteric, conjunctiva clear, nares patent, oropharynx reveals an intact soft and hard palate with moist mucous membranes NECK: Supple, no lymphadenopathy, thyroid without enlargement or nodularity CHEST: Respiratory excursions symmetric, diminished and coarse but clear to auscultation bilaterally CV: Regular rate and rhythm, no murmurs, rubs, gallops, PMI nondisplaced ABD: Soft, nontender, nondistended, bowel sounds present in all 4 quadrants, no organomegaly or masses appreciated EXTR: Warm, well perfused, no clubbing/cyanosis/edema SKIN: Warm and dry, without rash NEURO: Difficult to assess as patient has limited ability to follow commands PSYCH: Unable to assess Objective Labs 09/09/24 04:15 09/09/24 04:15 Labs: Laboratory Results - last 24 hr 09/08/24 09/09/24 03:45 04:15 WBC 8.5 RBC 2.80 L Hgb 9.2 L Hct 26.2 L MCV 93.6 MCH 33.1 MCHC 35.3 RDW 12.9 Plt Count 210 Neut % (Auto) 83.0 H Lymph % (Auto) 12.3 L [place] % (Auto) 3.8 Eos % (Auto) 0.2 L Baso % (Auto) 0.7 Neut # (Auto) 7000 Lymph # (Auto) 1000 L [place] # (Auto) 300 Eos # (Auto) 0 Baso # (Auto) 100 Sodium 136 L Potassium 3.5 Chloride 98 Carbon Dioxide 31 BUN 21 H Creatinine 0.94 Estimated GFR > 60 BUN/Creatinine Ratio 22.3 H Glucose 118 H D Calcium 8.2 L Total Bilirubin 0.6 AST 45 H ALT 30 Alkaline Phosphatase 93 Total Protein 7.4 Albumin 3.7 Globulin 3.7 Albumin/Globulin Ratio 1.0 TSH 208.00 H Free T4 < 0.07 L [facility] Medical History (Updated 09/08/24 @ 15:10 by Elma Leahy MD) Carotid artery disease Cerebrovascular accident (CVA) Hypothyroidism Hyperlipidemia Hypertension Seizure Social History (Updated 09/08/24 @ 15:11 by Elma Leahy MD) marital status: unmarried,single number of children: 9 household members: family lives independently: No caregiver/support person: Yes Smoking Status: Former smoker alcohol intake: current substance use type: does not use Assessment & Plan Assessment & Plan narrative: 1. Sepsis with Acute hypoxic respiratory failure, acute metabolic encephalopathy, hypotension Secondary to rhino virus, possible underlying community-acquired pneumonia, and right pleural effusion with compressive atelectasis. At this time, will continue supplemental oxygen and wean as tolerated. Continue Rocephin and azithromycin empirically. RN did try a bite of pudding and patient showed evidence of aspiration. Pending [employer] CONSULTANT evaluation but remains somnolent today. Will have speech therapy assess for safest diet. Patient does have a history of tobacco dependence but daughter denies any known history of COPD. She also denies any known history of obstructive sleep apnea. She does not utilize oxygen at baseline. Will work on improving pulmonary hygiene. If she has persistent respiratory issues, would benefit from a diagnostic thoracentesis. 2. 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 With encephalopathy, hypotension, hyponatremia on presentation at 129 will treat as myxedema coma with 100 mg q8 hydrocortisione, IV levothyroxine today 200 mcg - repeat thyroid testing in 2 days on 09/11 after starting therapy. - continue levothyroxine 50 mcg IV until able to tolerate PO. - check cortisol tomorrow AM - if no improvement consider transfer 3. Rhinovirus Patient has been symptomatic at home with headache, sore throat, and cough. We will continue supportive care. 4. New dx of DM2 No known history of diabetes. Blood sugar was 224 on arrival. Placed on fingersticks and sliding scale. Will place on a controlled carb diet once she is safely able to take oral intake. A1c was 7.5%. 4. Transaminitis She does have mild LFT elevation. This is new from her last visit a year ago. Will repeat LFT is tomorrow and follow. 5. Elevated D-dimer No evidence of PE on CT pulmonary angiogram. Likely elevated secondary to acute pulmonary infection. 6. Anemia Hemoglobin is 10.9 which appears consistent with baseline. 7. Left lung focal infiltrate versus mass This should be followed up for resolution. She does have a longstanding history of tobacco dependence. 8. Cerebrovascular disease Will obtain PT and OT evaluations once improved. 9. History of seizure - continue IV keppra until able to tolerate PO intake. 11. Hypertension - hold home BP medications until improved. Code status Full per daughter who is her proxy Prophylaxis Lovenox daily. Disposition Admit to acute care, likely in the hospital for several more days. Time-Based Coding :: [TOTAL MINUTES] spent with patient and on the chart (including review of chart, obtaining history, exam, reviewing outside data, placing orders, documenting exam and treatment plan, and counseling patient) on [DATE].
[2024-09-09] MEDS: HYDROCORTISONE 100 MG/2 ML VIAL IV ×2 (15:05→21:15)
[2024-09-09] MEDS: LEVOTHYROXINE INJ 100 MCG/5 ML VIAL 200 MCG IV (15:05)
--- NOTE | 2024-09-09 15:08 | ST.IPCSEOM ---
Visit Care Team Role Provider Type Dionne Murguia DO Emergency Provider Physician Referring Provider Specialty: Emergency Medicine Address: [address] [place] [address], [id number] Email: Elma Leahy MD Admit Provider Physician Attending Provider Specialty: Family Practice Address: [address] [place] [address], [id number] Phone: Fax: Email: Current Diagnoses Pneumonia, unspecified organism (09/08/24) Past Medical History (Last Updated 09/08/24 @ 15:10 by Elma Leahy MD) Carotid artery disease (Medical) Cerebrovascular accident (CVA) (Medical) Hyperlipidemia (Medical) Hypertension (Medical) Hypothyroidism (Medical) Seizure (Medical) Speech-Language Pathology Swallow Evaluation 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 Elma Leahy Reason for Referral respiratory distress, possible aspiration Setting Assessment Location Acute Care Visit Type Note Type Initial evaluation Next Note Type Next Note Type Treatment Note Patient Information History Per H&P: 79-year-old female with hypertension, hyperlipidemia, hypothyroidism , cerebrovascular disease with prior left MCA stroke, history of seizure in August 2023 secondary to old stroke, bilateral carotid artery disease, coronary artery disease status post prior CABG , history of tobacco dependence, probable vascular dementia who presented to the emergency department with cough and breathing difficulties. History is obtained from the patient's daughter as the patient is unable to provide any history. Patient's daughter notes that she moved the patient here from [place] 2 years ago. Prior to that she was living with her son. Daughter notes that she and the patient sleep in the same room together. Patient and the daughter's fiance have both been struggling with a cough and sore throat over the past several days. They have also both complained of headaches. At approximately 2 :00 a.m. this morning, the patient began coughing very hard and seemed to be struggling to breathe. The patient's daughter subsequently called EMS and had the patient transferred to the emergency department. On arrival to the emergency department, patient had O2 saturations of 79% in room air . She was placed on BiPAP, given 20 mg of IV Lasix, 0.4 mg of sublingual nitroglycerin . Chest x-ray showed no acute cardiopulmonary process. Labs revealed a normal white blood cell count at 9.9, hemoglobin 10.9, platelets 268 . D-dimer was 2199. ABG revealed a pH of 7.32, pCO2 54 , bicarb 29 on BiPAP. Sodium was 135, glucose 224. AST was elevated at 78, ALT elevated at 46. Troponin was less than 0.012 and remain negative on repeat. Respiratory viral panel was positive for entero/ rhino virus. BNP was normal at 347. CT pulmonary angiogram was subsequently performed and revealed no evidence of pulmonary embolism . There was a small right- sided pleural effusion. There was mild dependent consolidation in both lungs. There was a focal consolidation in the left posterior lung including pleural calcification. Atelectasis was felt to be most likely, but differential diagnosis includes infectious infiltrate and neoplasm. Furthermore there was a thoracic aortic stent noted and dense coronary artery calcification. While in the emergency department patient was able to be successfully weaned off of the BiPAP on to 5 L nasal cannula. Prior to transfer to the floor, she was weaned to 3 L. After arrival to the medical unit, patient did fall to sleep and subsequently dropped back down into the 70s on 3 L . She required non-rebreather mask to get her saturations back up to the 90s. Time of my evaluation, patient is presently drowsy but cooperative. Currently on 10 liters/minute via face mask. PMHx significant for: Carotid artery disease Cerebrovascular accident (CVA) Hypothyroidism Hyperlipidemia Hypertension Seizure Pt referred for ST evaluation d/t possible aspiration and hx of CVA. Subjective Observations Pt sitting upright in bed with daughter at bedside. Pt lives with her daughter who report she consumes primarily soft solids and thin liquids. Nursing reports Pt NPO d/t being pretty lethargic, which may be d/t low thyroid and will be starting a high dose of thyroid meds. Pt nonverbal during evaluation with a few head nods. Reported by Patient/Caregiver Pain/Discomfort No Current Diet NPO The IDDSI Framework Protocol: IDDSI.1 Objective Assessment Mental Status Alert,Lethargic,Unresponsive Comment Pt with upper dentures (not in place) and edentulous bottom. Formal OME unable to be completed d/t Pt unable to follow commands secondary to cognitive deficits and language barrier, however ST suspects generalized weakness and reduced ROM. Food and Liquid Trials Position During Assessment Upright (90 degrees) Liquids Trialed Thin (IDDSI 0) Solid Trials Purred (IDDSI 4) Administration Type Tea spoon Oral Impairment Mildly impaired Oral Phase Comments Pt required 100% feeding assistance. She consumed about 4 oz of thin water via tsp and 3 oz of applesauce via tsp . For thin water, Pt demonstrated good oral acceptance and containment, mild bolus holding, extended ap transport with suspected premature spillage. For applesauce, Pt demonstrated good oral acceptance and containment, adequate bolus formation and control, extended ap transport. Pharyngeal Impairment Moderately impaired Pharyngeal Phase Comments Pt with suspected delay in swallow with all trials. Pt with audible swallow reflex with all trials with increase in wheezing. Pt with weak laryngeal elevation. No coughing/choking observed. Fatigue/Endurance Mild fatigue The IDDSI Framework Protocol: IDDSI.1 Findings Swallowing Function Oropharyngeal phase dysphagia Severity of Swallow Impairment Moderately impaired Contributing Factors to Swallow Difficulty following Impairment directions Prognosis Fair Based on Cognitive status,Comorbidities Impact on Safety and Functioning Risk for aspiration,Risk for inadequate nutrition/hydration Recommendations Instrumental Assessment No Swallowing Treatment Yes Frequency Daily while inpatient Recommended Solids NPO Other Recommendations Pt presents with moderate oropharyngeal dysphagia. ST recommends Pt remain NPO at this time d/t Pt fatigue. ST suspects potential diet upgrade once Pt has started thyroid medications with hopes of increase in alertness. ST communicated results with nursing and MD. Pt may consume medications crushed in applesauce with strict oral care before/after. Medication Recommendations Crushed Education Patient/Caregiver Education Described results of evaluation,Family/caregivers require further education/ training Goals Short-term Goals STG 1: Pt will tolerate prescribed diet with <5% overt s/s of aspiration/dysphagia with use of compensatory swallowing strategies and minimal cues. Long-term Goals LTG: Patient will tolerate safest and most efficient diet with no clinical s/s of aspiration or dysphagia 100% of the time in order to consume least restrictive diet .
[2024-09-09] MEDS: SODIUM CHLORIDE 0.9% FLUSH 10 ML IV (21:04)
[2024-09-10] VITALS (26 sets, daily range): BP systolic 86–136; BP diastolic 49–69; PULSE 60–82; RESP 14–24; TEMP 35.8–37.1; O2SAT 89–98
[2024-09-10] MEDS: SODIUM CHLORIDE 0.9% 500 ML 1000 ML IV (01:49)
--- NOTE | 2024-09-10 02:57 | PC.NURSE ---
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 100cc in purewick cannister, bladder scan showed <200cc. Patient received 1L NS bolus during dayshift for hypotension & is getting cont fluids 75cc/hr. Coarse crackles heard upon auscultation, SpO2 95% on 3L oximask. Patient is drowsy however appears more alert than previous night. Does not appear edematous. Discussed with MD about wagner catheter placement for accurate I&Os, ordered & placed. 0130: 500cc NS bolus ordered & given. 0210: SpO2 desat to 93% on oximask, placed patient on non-rebreather mask to bring SpO2 back up to 90s. Coarse crackles audible when standing next to patient. No edema noted. BP 117/57, HR 70. Notified MD Young, awaiting orders. 0230: Weaned back to 3L oximask, SpO2 97%.
[2024-09-10] MEDS: SODIUM CHLORIDE 0.9% 1,000 ML 75 ML IV ×2 (03:54→21:56)
[2024-09-10] MEDS: HYDROCORTISONE 100 MG/2 ML VIAL IV ×3 (05:34→21:37)
[2024-09-10 06:11] LABS: Alanine Aminotransferase 25 IU/L (<35); Albumin 3.5 g/dL (3.5-5.0); Alkaline Phosphatase 95 U/L (38-126); Aspartate Aminotransferase 42 IU/L (14-36); BUN Creatinine Ratio 28.8 (6-22); Bilirubin Total 0.5 mg/dL (0.2-1.3); Blood Urea Nitrogen 23 mg/dL (7-17); Calcium 7.4 mg/dL (8.4-10.2); Carbon Dioxide 23 mmol/L (22-32); Chloride 105 mmol/L (98-107); Estimated Glomerular Filt Rate > 60 mL/min (>60); Globulin 3.5 g/dL (1.7-4.1); Glucose 136 mg/dL (80-110); HEMOLYSIS < 15 (0-50); Potassium 3.2 mmol/L (3.4-5.1); Sodium 137 mmol/L (137-145)
[2024-09-10 06:39] LABS: T4 Total Thyroxine 3.37 ug/dL (5.5-11.0)
[2024-09-10 07:04] LABS: Add Manual Diff / Slide Review NO; Basophils Absolute Auto 0 /uL (0-100); Basophils Percent Auto 0.1 % (0-2); Eosinophils Absolute Auto 0 /uL (0-450); Hematocrit 24.5 % (36-46); Hemoglobin 8.5 g/dL (12.0-16.0); Lymphocytes Absolute Auto 700 /uL (1100-4500); Lymphocytes Percent Auto 9.1 % (25-40); Mean Corpuscular HGB Conc 34.8 % (30-36); Mean Corpuscular Hemoglobin 32.5 PG (26-34); Mean Corpuscular Volume 93.3 fL (80-100); Monocytes Absolute Auto 200 /uL (0-900); Neutrophils Absolute Auto 6700 /uL (1500-7000); Neutrophils Percent Auto 88.8 % (50-75); Platelet Count 175 X10^3/uL (150-400); Red Blood Cell Count 2.62 X10^6/uL (4.0-5.2); Red Cell Distribution Width 13.4 % (11.6-14.8); White Blood Cell Count 7.6 X10^3/uL (4.5-11.0)
[2024-09-10 07:19] LABS: Cortisol AM (Before 10AM) 112 ug/dL (4.46-22.7)
[2024-09-10] MEDS: levETIRAcetam 500 MG in SODIUM CHLORIDE 0.9% 100 ML 420 MG IV ×2 (08:53→21:35)
[2024-09-10] MEDS: cefTRIAXone 1,000 MG in SODIUM CHLORIDE 0.9% 100 ML 200 MG IV (08:59)
[2024-09-10] MEDS: ENOXAPARIN 40 MG/0.4 ML SYRINGE SUBCUT (09:01)
[2024-09-10] MEDS: AZITHROMYCIN 500 MG in DEXTROSE 5% IN WATER 250 ML 250 MG IV (09:03)
--- NOTE | 2024-09-10 09:06 | PT.IIE ---
Current Diagnoses Pneumonia, unspecified organism (09/08/24) Medical History (Last Updated 09/08/24 @ 15:10 by Elma Leahy MD) Carotid artery disease Cerebrovascular accident (CVA) Hyperlipidemia Hypertension Hypothyroidism Seizure Physical Therapy Inpatient Evaluation/Re-Eval M1 PT/OT-IP Prior Functional Status Start: 09/09/24 12:21 Freq: NEEDED Status: Active Protocol: Document 09/10/24 08:36 MB (Rec: 09/10/24 09:05 MB [id number]) Medical Review Prior Functional Status Medical History Reviewed Yes Communication Minimal communication at baseline Mobility and Gait Transfers with close to dependent assistance from family or takes a few steps with assistance to w/c Activities of Daily Living and IADL's Assist for all ADLs except feeding self Social History Household Members family Living Arrangements House Number of Floors (Floors) One Floor Number of Stairs To Enter/Railing? 2 steps to enter with no rail Home Environment Standard Height Toilet,Tub/ Shower Home Equipment Front Wheel Walker,Four Wheel Walker,Manual Wheelchair,Tub Transfer Bench,Hand Held Shower Additional Social History Comment Flat bed, briefs M2 PT-IP Current Condition Start: 09/09/24 12:21 Freq: NEEDED Status: Active Protocol: Document 09/10/24 08:36 MB (Rec: 09/10/24 09:05 MB [id number]) Physical Therapy Current Condition Current Condition Evaluation Date 09/10/24 Treatment Diagnosis Respiratory distress M3 PT-IP Subjective Start: 09/09/24 12:21 Freq: NEEDED Status: Active Protocol: Document 09/10/24 08:36 MB (Rec: 09/10/24 09:05 MB [id number]) Subjective Physical Therapy Visit Type Type Initial Evaluation Visit Start Time 08:36 Visit Stop Time 08:46 Number of STENCILER Visits 0 Physical Therapy Visit Comments Patient Comments Pt is non-verbal with PT Therapy Pain Assessment Pain When Pain Assessed At Rest Pain Present Pain Present Unable to Respond FLACC Pain Scale Face No particular expression M4 PT-IP Mobility and Gait Start: 09/09/24 12:21 Freq: NEEDED Status: Active Protocol: Document 09/10/24 08:36 MB (Rec: 09/10/24 09:05 MB [id number]) PT-Transfer Assessment Comments Mobility Comments Pt is dependent for all bed mobility, presents with contractures and only moves right LE trace with PT M5 PT-IP Objective Assessments Start: 09/09/24 12:21 Freq: NEEDED Status: Active Protocol: Document 09/10/24 08:36 MB (Rec: 09/10/24 09:05 [id number]) Orientation Orientation/Cognition Level of Alertness Alert Comments Pt makes no verbalizations with PT, does track PT with eyes, nod yes once and minimally move RLE with trace activity Gross Range of Motion Upper Extremity ROM Assessment Bilaterally Impaired Impairments Tone all limbs and appears greater in right UE than left UE Lower Extremity ROM Assessment Bilaterally Impaired Impairments Tone all limbs including knee flexion and plantarflexion contractures and minimal passive and active range today Strength Upper Extremity Strength Assessment Bilaterally Impaired Lower Extremity Strength Assessment Bilaterally Impaired Comments Strength Comments All joints no more than trace Coordination Assessment Gross Coordination Gross Coordination Impaired Sensation Assessment Comments Sensation Comments Cannot follow sensory commands Muscle Tone Muscle Tone WNL No Comments Muscle Tone Comments See comments above, increased flexor tone M7 PT-IP Assessment and Plan Start: 09/09/24 12:21 Freq: NEEDED Status: Active Protocol: Document 09/10/24 08:36 MB (Rec: 09/10/24 09:05 [id number]) PT Summary Assessment and Plan Potential Rehabilitation Potential Poor Status of Condition at Evaluation Evolving Summary Impairments Pain,ROM,Strength,Balance, Coordination,Sensation,Tone, Cognition,Bed Mobility, Transfers,Gait,Activity Tolerance Assessment Summary Pt is a 79 y/o female adm with respiratory distress. She is breathing better today compared to checking in with her last date and she is alert as far as eyes tracking with PT. Pt is on 2L O2 and sats and HR remain WNLs with gentle bed mobility. Pt presents with tone in all limbs, flexor tone in LEs and limited to no range with assessment today. She has no verbalizations and is only able to move RLE trace with cues. She will require total lift for OOB. Pt requires heavy assist at baseline. Spoke with SW about presentation and will d/c skilled PT. Recommend OOB to chair with total lift and nsg to help with skin integrity, pulmonary function, eating and digestion. Frequency of Treatment Frequency Of Treatment Discharge Recommendations To Nursing Amount of Assist Needed Mechanical Lift Discharge Recommendations PT Discharge Recommendations Home with 19/06 Assist Available Transportation Needs at Discharge Wheelchair/Cabulance,Stretcher /Ambulance
--- NOTE | 2024-09-10 11:04 | ST.IPDYTX ---
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 Used bed controls to reposition to a fully upright position. No family present during session. Nursing reports pt continues to be lethargic, though alertness has somewhat improved with thyroid meds. Pt continued to be nonverbal during session. Treatment Liquids Trialed Ice chips,Thin (IDDSI 0) Administration Type Tea Spoon,Dependent Feeding Treatment Activities Therapeutic PO trials of ice chips and thin liquids (water) via tsp with assessment for s /sx of penetration/aspiration and potential readiness to advance to PO diet. The IDDSI Framework Protocol: IDDSI.1 Assessment Patient Response to Treatment Fair Rehab Potential Fair Assessment of Improvement Upon arrival, pt opened eyes and tracked MIR[employer]ACH[employer]EDER across the room. She continued to be nonverbal and did not follow simple 1-step directions with max multimodal cueing. Oral phase was characterized by slow bolus manipulation and appeared disorganized. Pt demonstrated good oral acceptance and containment, mild bolus holding, and extended AP transport with suspected premature spillage. Pharyngeal phase cannot be assessed objectively at bedside though subjectively appeared effortful and pt required 2-3 swallows per bolus at times. Pt with suspected delay in swallow initiation with all trials. She demonstrated audible swallow reflex with all trials with increase in wheezing. Pt with weak laryngeal elevation to palpation. Pt initially in 10L face mask, though 15L NC placed for PO trials. SpO2 desat to mid 80's following intake, though recovered to low 90?s after 5-10 seconds. Pt demonstrated consistent s/ sx of aspiration with all PO re: throat clearing and coughing. Cough strength is judged to be weak increasing aspirated related complications. Currently, she continues to present with indications of oropharyngeal dysphagia and aspiration risk is judged to be high. Pt does not appear safe for a PO diet at this time. Recommendations Diet Order NPO Medication Recommendations Not Recommended by Mouth Treatment Plan Placement Recommendation after Discharge Alf Facility, Inpatient Rehab Facility Appropriate for Continued Therapy Yes Therapy Recommendations Will continue to follow up daily to assess clinical improvements and potential advancement to PO diet. Additionally, continued to assess for initiation and tolerance of ice chip/water protocol to promote oral hygiene and reduce risk of swallow strength decompensation.
[2024-09-10] MEDS: POTASSIUM CHLORIDE IN WATER 10 MEQ/100 ML PIGGYBACK 100 MEQ IV ×4 (11:08→14:36)
--- NOTE | 2024-09-10 11:59 | P.PN_ITS ---
Subjective Subjective Interval history: Improved BP and alertness, still NPO per FICTION AND NONFICTION AUTHOR evaluation today. Nods appropriately, denied pain, but not speaking. Exam Vital Signs (past 8 hours): - 09/10/24 04:00 09/10/24 04:00 09/10/24 05:00 Temperature 97.4 F L Pulse Rate 60 73 Respiratory Rate 15 20 Blood Pressure 104/54 L Pulse Oximetry 98 94 Oxygen Delivery Method Oxygen Flow Rate 2 09/10/24 05:00 09/10/24 06:00 09/10/24 06:00 Temperature Pulse Rate 70 Respiratory Rate 19 Blood Pressure 136/65 117/58 L Pulse Oximetry 94 Oxygen Delivery Method Oxygen Flow Rate 2 2 09/10/24 07:00 09/10/24 07:00 09/10/24 08:00 Temperature Pulse Rate 74 71 Respiratory Rate 19 20 Blood Pressure 120/60 Pulse Oximetry 94 97 Oxygen Delivery Method Oxygen Flow Rate 09/10/24 08:00 09/10/24 08:00 09/10/24 08:00 Temperature 97.5 F L Pulse Rate Respiratory Rate Blood Pressure 121/60 Pulse Oximetry Oxygen Delivery Method Nasal Cannula Oxygen Flow Rate 09/10/24 09:00 09/10/24 09:00 09/10/24 10:00 Temperature Pulse Rate 74 Respiratory Rate 21 Blood Pressure 129/59 L 120/63 Pulse Oximetry 93 Oxygen Delivery Method Oxygen Flow Rate 09/10/24 10:00 Temperature Pulse Rate 76 Respiratory Rate 22 Blood Pressure Pulse Oximetry 89 L Oxygen Delivery Method Oxygen Flow Rate Fraction of Inspired Oxygen 32 SaO2/FiO2 Ratio 296 Oxygen Delivery Method Nasal Cannula Oxygen Flow Rate 2 Narrative Exam Narrative: GEN: Somnolent elderly female, oriented to self, no acute distress HEENT: Normocephalic, face symmetric, pupils equal round reactive to light, extraocular movements intact, sclerae anicteric, conjunctiva clear, nares patent, oropharynx reveals an intact soft and hard palate with moist mucous membranes NECK: Supple, no lymphadenopathy, thyroid without enlargement or nodularity CHEST: Respiratory excursions symmetric, diminished and coarse but clear to auscultation bilaterally CV: Regular rate and rhythm, no murmurs, rubs, gallops, PMI nondisplaced ABD: Soft, nontender, nondistended, bowel sounds present in all 4 quadrants, no organomegaly or masses appreciated EXTR: Warm, well perfused, no clubbing/cyanosis/edema SKIN: Warm and dry, without rash NEURO: Difficult to assess, more alert today, no obvious focal deficits Objective Labs 09/10/24 06:33 09/10/24 04:50 Labs: Laboratory Results - last 24 hr 09/10/24 09/10/24 04:50 06:33 WBC 7.6 RBC 2.62 L Hgb 8.5 L Hct 24.5 L MCV 93.3 MCH 32.5 MCHC 34.8 RDW 13.4 Plt Count 175 Neut % (Auto) 88.8 H Lymph % (Auto) 9.1 L Mcintosh % (Auto) 2.0 L Eos % (Auto) 0.0 L Baso % (Auto) 0.1 Neut # (Auto) 6700 Lymph # (Auto) 700 L Mcintosh # (Auto) 200 Eos # (Auto) 0 Baso # (Auto) 0 Sodium 137 Potassium 3.2 L Chloride 105 Carbon Dioxide 23 BUN 23 H Creatinine 0.80 Estimated GFR > 60 BUN/Creatinine Ratio 28.8 H Glucose 136 H Calcium 7.4 L Total Bilirubin 0.5 AST 42 H ALT 25 Alkaline Phosphatase 95 Total Protein 7.0 Albumin 3.5 Globulin 3.5 Albumin/Globulin Ratio 1.0 Thyroxine (T4) 3.37 L Cortisol AM Sample 112 H [facility] Medical History (Updated 09/08/24 @ 15:10 by Elma Leahy MD) Carotid artery disease Cerebrovascular accident (CVA) Hypothyroidism Hyperlipidemia Hypertension Seizure Social History (Updated 09/08/24 @ 15:11 by Elma Leahy MD) marital status: unmarried,single number of children: 9 household members: family lives independently: No caregiver/support person: Yes Smoking Status: Former smoker alcohol intake: current substance use type: does not use Assessment & Plan Assessment & Plan narrative: 1. Sepsis with Acute hypoxic respiratory failure, acute metabolic encephalopathy, hypotension due to aspiration pneumonia Secondary to rhino virus, possible underlying community-acquired pneumonia, and right pleural effusion with compressive atelectasis. At this time, will continue supplemental oxygen and wean as tolerated. Currently down to 2L. Continue Rocephin and azithromycin empirically. FICTION AND NONFICTION AUTHOR recommends NPO, likely aspiration. Is improving with steroids and levothyroxine. Patient does have a history of tobacco dependence but daughter denies any known history of COPD. She also denies any known history of obstructive sleep apnea. She does not utilize oxygen at baseline. Will work on improving pulmonary hygiene. 2. 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 With encephalopathy, hypotension, hyponatremia on presentation at 129 continued to treat as myxedema coma with 100 mg q8 hydrocortisione, IV levothyroxine today 200 mcg. - repeat thyroid testing every couple of days. - continue levothyroxine 50 mcg IV until able to tolerate PO. - AM cortisol 112. T4 level this AM still low at 3.37. Will continue 2 days of above hydrocortisone, then can stop. 3. Rhinovirus Patient had been symptomatic at home with headache, sore throat, and cough. We will continue supportive care. 4. New dx of DM2 No known history of diabetes. Blood sugar was 224 on arrival. Placed on fingersticks and sliding scale. Will place on a controlled carb diet once she is safely able to take oral intake. A1c was 7.5%. 4. Transaminitis She does have mild LFT elevation. This is new from her last visit a year ago. Will repeat LFT is tomorrow and follow. 5. Elevated D-dimer No evidence of PE on CT pulmonary angiogram. Likely elevated secondary to acute pulmonary infection. 6. Anemia Hemoglobin is 10.9 which appears consistent with baseline. 7. Left lung focal infiltrate versus mass This should be followed up for resolution. She does have a longstanding history of tobacco dependence. 8. Cerebrovascular disease Continue PT and OT as tolerated. 9. History of seizure - continue IV keppra until able to tolerate PO intake. 11. Hypertension - hold home BP medications until improved. Code status Full per daughter who is her proxy Prophylaxis Lovenox daily. Disposition Admit to acute care, likely in the hospital for 2-3 more days Time-Based Coding :: [TOTAL MINUTES] spent with patient and on the chart (including review of chart, obtaining history, exam, reviewing outside data, placing orders, documenting exam and treatment plan, and counseling patient) on [DATE].
[2024-09-10] MEDS: INSULIN LISPRO 100 UNIT/ML 3ML VIAL SUBCUT (12:08)
--- NOTE | 2024-09-10 14:19 | CM.DPC ---
DCP Cont. Reviewed EMR and team rounds for status updates. Per Hospitalist, pt will likely need 2-more days before being stable for d/c. Will continue to monitor for any further evolving d/c needs.
[2024-09-10] MEDS: LEVOTHYROXINE INJ 100 MCG/5 ML VIAL 50 MCG IV (14:44)
[2024-09-10] MEDS: SODIUM CHLORIDE 0.9% FLUSH 10 ML IV (21:37)
[2024-09-11] VITALS: BP 142/68; PULSE 67; RESP 18; TEMP 36; O2SAT 98
[2024-09-11 04:00] VITALS: BP 144/72; PULSE 72; RESP 20; TEMP 35.9; O2SAT 98
[2024-09-11 05:39] LABS: Add Manual Diff / Slide Review NO; Basophils Absolute Auto 0 /uL (0-100); Basophils Percent Auto 0.3 % (0-2); Eosinophils Absolute Auto 0 /uL (0-450); Hematocrit 24.3 % (36-46); Hemoglobin 8.6 g/dL (12.0-16.0); Lymphocytes Absolute Auto 700 /uL (1100-4500); Lymphocytes Percent Auto 9.3 % (25-40); Mean Corpuscular HGB Conc 35.5 % (30-36); Mean Corpuscular Volume 92.9 fL (80-100); Monocytes Absolute Auto 100 /uL (0-900); Monocytes Percent Auto 1.9 % (3-14); Neutrophils Absolute Auto 6600 /uL (1500-7000); Neutrophils Percent Auto 88.5 % (50-75); Platelet Count 168 X10^3/uL (150-400); Red Blood Cell Count 2.61 X10^6/uL (4.0-5.2); Red Cell Distribution Width 13.3 % (11.6-14.8); White Blood Cell Count 7.4 X10^3/uL (4.5-11.0)
[2024-09-11 05:59] LABS: Alanine Aminotransferase 20 IU/L (<35); Albumin 3.3 g/dL (3.5-5.0); Alkaline Phosphatase 96 U/L (38-126); Aspartate Aminotransferase 36 IU/L (14-36); BUN Creatinine Ratio 26.9 (6-22); Bilirubin Total 0.4 mg/dL (0.2-1.3); Blood Urea Nitrogen 18 mg/dL (7-17); Calcium 7.4 mg/dL (8.4-10.2); Carbon Dioxide 22 mmol/L (22-32); Chloride 107 mmol/L (98-107); Estimated Glomerular Filt Rate > 60 mL/min (>60); Globulin 3.3 g/dL (1.7-4.1); Glucose 131 mg/dL (80-110); HEMOLYSIS < 15 (0-50); Potassium 3.6 mmol/L (3.4-5.1); Sodium 136 mmol/L (137-145); Total Protein 6.6 g/dL (6.3-8.2)
[2024-09-11] MEDS: HYDROCORTISONE 100 MG/2 ML VIAL IV (06:25)
[2024-09-11 08:00] VITALS: BP 146/72; PULSE 76; RESP 22; TEMP 36.7; O2SAT 97
[2024-09-11] MEDS: SODIUM CHLORIDE 0.9% FLUSH 10 ML IV ×2 (08:19→21:13)
[2024-09-11] MEDS: ENOXAPARIN 40 MG/0.4 ML SYRINGE SUBCUT (08:19)
[2024-09-11] MEDS: cefTRIAXone 1,000 MG in SODIUM CHLORIDE 0.9% 100 ML 200 MG IV (08:20)
[2024-09-11] MEDS: levETIRAcetam 500 MG in SODIUM CHLORIDE 0.9% 100 ML 420 MG IV (08:20)
--- NOTE | 2024-09-11 10:38 | ST.IPDYTX ---
Visit Care Team Role Provider Type Dionne Murguia DO Emergency Provider Physician Referring Provider Specialty: Emergency Medicine Address: [address] [place] [address], [id number] Email: [email or web address] Admit Provider Physician Attending Provider Specialty: Family Practice Address: [address] [place] [address], [id number] Phone: Fax: Email: [email or web address] INVESTIGATOR Dysphagia Treatment PARANORMAL INVESTIGATOR Dysphagia Treatment Start: 09/10/24 10:40 Freq: Status: Active Protocol: Document 09/11/24 10:26 MA (Rec: 09/11/24 10:38 MA [id number]) Dysphagia Treatment Session Time Visit Start Time 09:55 Visit Stop Time 10:20 Total Visit Minutes 25 Visit Information Visit Number 3 Setting Assessment Location Acute Care Visit Type Note Type Treatment Note Next Note Type Next Note Type Treatment Note Patient Information Identification Type Name,ID Wristband Subjective Observations Pt sitting upright in chair in room. No family present during session. Nursing reports pt continues to be lethargic, though alertness has somewhat improved with thyroid meds. Pt continued to be nonverbal during session. Treatment Liquids Trialed Thin (IDDSI 0) Solids Trialed Purred (IDDSI 4) Administration Type Tea Spoon,Controlled Cup Sip Treatment Activities Therapeutic PO trials of thin liquids (water) via tsp and cup and pureed solids with assessment for s/sx of penetration/aspiration and potential readiness to advance to PO diet. The IDDSI Framework Protocol: IDDSI.1 Assessment Patient Response to Treatment Fair Rehab Potential Fair Assessment of Improvement Upon arrival, pt opened eyes and tracked PARANORMAL INVESTIGATOR across the room. She continued to be nonverbal. Pt presented with about 3 oz of thin water via tsp/cup and 2 oz of pudding and 3 oz of applesauce. Pt able to drink from cup when presented to her, however required assistance eating with spoon. Pt with 1x wet cough reflex prior to PO trials. For water Pt demonstrated good oral acceptance and containment, mild bolus holding, however swallow initiated with tactile cue of cup/spoon on Pt lips. Pt with suspected delayed in AP transport and suspected delay in swallow with premature spillage. Pt with audible swallow reflex. No overt s/s of aspiration with thin water. For pudding/ applesauce, Pt demonstrated small bites, munching mastication pattern, prolonged bolus manipulation with extended ap transport, suspected delay in swallow. 1x cough with pudding, no overt s/s of aspiration with applesauce. ST recommends diet upgrade to pureed solids ( IDDSI 4) and thin liquids ( IDDSI 0) via tsp. ST recommends PO diet initiated with the following safe swallowing strategies in place : upright 90 degrees, upright at least 30 minutes after meals, strict oral care before /after meals, small bites/sips , 100% supervision and feeding assist, Pt only to be fed when awake and alert and sitting upright. Sign placed in Pt's room indicating diet rec and safe swallowing strategies. Nursing/MD notified. Recommendations Recommendations Upgrade Diet Order Liquids Order Thin (IDDSI 0) Diet Order Pureed (IDDSI 4) Medication Recommendations Crushed Additional Dietary Needs 1:1 Supervision,1:1 Assistance Aspiration Precautions Recommended Precautions Upright at 90 Degrees, Alternate Liquids/Solids, Frequent Rest Periods,Small Bites/Sips,Liquids from Spoon Treatment Plan Placement Recommendation after Discharge Half-Way Facility, Inpatient Rehab Facility Appropriate for Continued Therapy Yes
[2024-09-11 12:00] VITALS: BP 145/68; PULSE 75; RESP 22; TEMP 36.9; O2SAT 94
--- NOTE | 2024-09-11 12:00 | CM.DPC ---
DCP Cont. Reviewed ERM and team rounds. Pt is still not able to bear weight, will likely need 1-more night before being ready for d/c. Monitoring for any d/c assistance/resource needs.
[2024-09-11] MEDS: LEVOTHYROXINE 75 MCG TABLET PO (12:33)
[2024-09-11] MEDS: INSULIN LISPRO 100 UNIT/ML 3ML VIAL SUBCUT ×2 (12:33→17:16)
--- NOTE | 2024-09-11 14:52 | PM.PN.1 ---
Subjective Subjective Interval history: Improved BP and alertness, Able to advance diet today per CLOTH DESIGNER. Ordered PO levothyroxine. Exam Vital Signs (past 8 hours): - 09/11/24 08:00 09/11/24 08:00 09/11/24 12:00 Temperature 98.1 F 98.4 F Pulse Rate 76 75 Respiratory Rate 22 22 Blood Pressure 146/72 H 145/68 H Pulse Oximetry 97 94 Oxygen Delivery Method Room Air Oxygen Flow Rate 0 0 Fraction of Inspired Oxygen 28 SaO2/FiO2 Ratio 339 Oxygen Delivery Method Room Air Oxygen Flow Rate 0 Narrative Exam Narrative: GEN: Somnolent elderly female, no acute distress HEENT: Normocephalic, face symmetric, pupils equal round reactive to light, extraocular movements intact, sclerae anicteric, conjunctiva clear, nares patent, oropharynx reveals an intact soft and hard palate with moist mucous membranes NECK: Supple, no lymphadenopathy, thyroid without enlargement or nodularity CHEST: Respiratory excursions symmetric, diminished and coarse but clear to auscultation bilaterally CV: Regular rate and rhythm, no murmurs, rubs, gallops, PMI nondisplaced ABD: Soft, nontender, nondistended, bowel sounds present in all 4 quadrants, no organomegaly or masses appreciated EXTR: Warm, well perfused, no clubbing/cyanosis/edema SKIN: Warm and dry, without rash NEURO: Difficult to assess, more alert today, no obvious focal deficits, occasionally will follow commands. Objective Labs 09/11/24 04:50 09/11/24 04:50 Labs: Laboratory Results - last 24 hr 09/11/24 04:50 WBC 7.4 RBC 2.61 L Hgb 8.6 L Hct 24.3 L MCV 92.9 MCH 33.0 MCHC 35.5 RDW 13.3 Plt Count 168 Neut % (Auto) 88.5 H Lymph % (Auto) 9.3 L [place] % (Auto) 1.9 L Eos % (Auto) 0.0 L Baso % (Auto) 0.3 Neut # (Auto) 6600 Lymph # (Auto) 700 L [place] # (Auto) 100 Eos # (Auto) 0 Baso # (Auto) 0 Sodium 136 L Potassium 3.6 Chloride 107 Carbon Dioxide 22 BUN 18 H Creatinine 0.67 Estimated GFR > 60 BUN/Creatinine Ratio 26.9 H Glucose 131 H Calcium 7.4 L Total Bilirubin 0.4 AST 36 ALT 20 Alkaline Phosphatase 96 Total Protein 6.6 Albumin 3.3 L Globulin 3.3 Albumin/Globulin Ratio 1.0 [facility] Medical History (Updated 09/08/24 @ 15:10 by Elma Leahy MD) Carotid artery disease Cerebrovascular accident (CVA) Hypothyroidism Hyperlipidemia Hypertension Seizure Social History (Updated 09/08/24 @ 15:11 by Elma Leahy MD) marital status: unmarried,single number of children: 9 household members: family lives independently: No caregiver/support person: Yes Smoking Status: Former smoker alcohol intake: current substance use type: does not use Assessment & Plan Assessment & Plan narrative: 1. Sepsis with Acute hypoxic respiratory failure, acute metabolic encephalopathy, hypotension due to aspiration pneumonia Secondary to rhino virus, possible underlying community-acquired pneumonia, and right pleural effusion with compressive atelectasis. Now off of supplemental oxygen. Continue Rocephin and azithromycin empirically. CLOTH DESIGNER recommends dysphagia diet, likely aspiration. - if no significant improvement, consider MRI for further evaluation of encephalopathy to rule out CVA. Patient does have a history of tobacco dependence but daughter denies any known history of COPD. She also denies any known history of obstructive sleep apnea. She does not utilize oxygen at baseline. Will work on improving pulmonary hygiene. 2. 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 With encephalopathy, hypotension, hyponatremia on presentation at 129 continued to treat as myxedema coma with 100 mg q8 hydrocortisione, IV levothyroxine 200 mcg. - repeat thyroid testing every couple of days. - continuedlevothyroxine 50 mcg IV until able to tolerate PO. Now will transition to home dose 125 mcg. Though unclear if patient was taking this reliably at home. - AM cortisol 112. T4 level this AM still low at 3.37. Continued 2 days of above hydrocortisone, then stopped. 3. Rhinovirus Patient had been symptomatic at home with headache, sore throat, and cough. We will continue supportive care. 4. New dx of DM2 No known history of diabetes. Blood sugar was 224 on arrival. Placed on fingersticks and sliding scale. Will place on a controlled carb diet once she is safely able to take oral intake. A1c was 7.5%. 4. Transaminitis She does have mild LFT elevation. This is new from her last visit a year ago. Will repeat LFT is tomorrow and follow. 5. Elevated D-dimer No evidence of PE on CT pulmonary angiogram. Likely elevated secondary to acute pulmonary infection. 6. Anemia Hemoglobin is 10.9 which appears consistent with baseline. 7. Left lung focal infiltrate versus mass This should be followed up for resolution. She does have a longstanding history of tobacco dependence. 8. Cerebrovascular disease Continue PT and OT as tolerated. 9. History of seizure - continue IV keppra until able to tolerate PO intake. 11. Hypertension - hold home BP medications until improved. Code status Full per daughter who is her proxy Prophylaxis Lovenox daily. Disposition Admit to acute care, likely in the hospital for 2-3 more days. PT/OT Time-Based Coding :: [TOTAL MINUTES] spent with patient and on the chart (including review of chart, obtaining history, exam, reviewing outside data, placing orders, documenting exam and treatment plan, and counseling patient) on [DATE].
[2024-09-11 16:00] VITALS: BP 155/76; PULSE 70; RESP 24; TEMP 37; O2SAT 98
--- NOTE | 2024-09-11 19:03 | PC.NURSE ---
Day Shift Patient alert, minimal speech, occ. says yes or no. Follows some directions. Mechanical lifted to chair and pt sat up in chair most of day. Speech therapy cleared for diet, see order. One to one feed, took pill crushed in pudding without issue. Rivera catheter in place. Call light within reach.
[2024-09-11 20:00] VITALS: BP 124/67; PULSE 63; RESP 21; TEMP 36.7; O2SAT 94
[2024-09-11] MEDS: levETIRAcetam 250 MG TABLET 500 MG PO (21:12)
[2024-09-11] MEDS: ATORVASTATIN 20 MG TABLET 40 MG PO (21:12)
[2024-09-12] VITALS (7 sets, daily range): BP systolic 125–166; BP diastolic 66–79; PULSE 64–76; RESP 15–22; TEMP 35.9–36.8; O2SAT 91–95
[2024-09-12 04:54] LABS: Add Manual Diff / Slide Review NO; Basophils Absolute Auto 0 /uL (0-100); Basophils Percent Auto 0.1 % (0-2); Eosinophils Absolute Auto 0 /uL (0-450); Eosinophils Percent Auto 0.1 % (2-4); Hematocrit 24.2 % (36-46); Hemoglobin 8.7 g/dL (12.0-16.0); Lymphocytes Absolute Auto 1200 /uL (1100-4500); Lymphocytes Percent Auto 19.5 % (25-40); Mean Corpuscular HGB Conc 35.7 % (30-36); Mean Corpuscular Hemoglobin 32.8 PG (26-34); Mean Corpuscular Volume 91.6 fL (80-100); Monocytes Absolute Auto 400 /uL (0-900); Monocytes Percent Auto 6.3 % (3-14); Neutrophils Absolute Auto 4600 /uL (1500-7000); Platelet Count 182 X10^3/uL (150-400); Red Blood Cell Count 2.64 X10^6/uL (4.0-5.2); Red Cell Distribution Width 12.9 % (11.6-14.8); White Blood Cell Count 6.1 X10^3/uL (4.5-11.0)
[2024-09-12 05:03] LABS: Alanine Aminotransferase 17 IU/L (<35); Albumin 3.1 g/dL (3.5-5.0); Alkaline Phosphatase 83 U/L (38-126); Aspartate Aminotransferase 27 IU/L (14-36); BUN Creatinine Ratio 21.3 (6-22); Bilirubin Total 0.4 mg/dL (0.2-1.3); Blood Urea Nitrogen 16 mg/dL (7-17); Calcium 7.8 mg/dL (8.4-10.2); Carbon Dioxide 26 mmol/L (22-32); Chloride 105 mmol/L (98-107); Estimated Glomerular Filt Rate > 60 mL/min (>60); Globulin 3.2 g/dL (1.7-4.1); Glucose 116 mg/dL (80-110); HEMOLYSIS < 15 (0-50); Potassium 3.1 mmol/L (3.4-5.1); Sodium 135 mmol/L (137-145); Total Protein 6.3 g/dL (6.3-8.2)
[2024-09-12 05:19] LABS: Free T4, Direct Thyroxine 0.42 ng/dL (0.78-2.19)
[2024-09-12] MEDS: ENOXAPARIN 40 MG/0.4 ML SYRINGE SUBCUT (08:20)
[2024-09-12] MEDS: levETIRAcetam 250 MG TABLET 500 MG PO (08:20)
[2024-09-12] MEDS: cefTRIAXone 1,000 MG in SODIUM CHLORIDE 0.9% 100 ML 200 MG IV (08:20)
[2024-09-12] MEDS: ASPIRIN EC 81 MG TABLET PO (08:21)
[2024-09-12] MEDS: SODIUM CHLORIDE 0.9% FLUSH 10 ML IV ×2 (08:21→21:39)
[2024-09-12] MEDS: LEVOTHYROXINE 125 MCG TABLET PO (08:21)
--- NOTE | 2024-09-12 11:17 | PC.NURSE ---
Day shift note: Patient alert, sitting up in bed, responds yes and no to questions, was able to ask for Jello clearly. Follows some instructions. One to one feed of pureed diet, with thin liquids by spoon. Speech is concerned today that pt was coughing after swallow, Dr Fuentes updated, no new orders at this time. Bed in low and locked position, bed alarm on, no further needs at this time.
--- NOTE | 2024-09-12 11:31 | CM.DPC ---
DCP Cont. Reviewed EMR and team rounds for status updates. Left a message for pt's granddaughter to please return call to discuss d/c plan and medical concerns for d/c.
[2024-09-12] MEDS: INSULIN LISPRO 100 UNIT/ML 3ML VIAL SUBCUT (12:13)
[2024-09-12] MEDS: POTASSIUM CHLORIDE 20 MEQ/15 ML UDC 40 MEQ PO (12:16)
--- NOTE | 2024-09-12 12:19 | ST.IPDYTX ---
Visit Care Team Role Provider Type Dionne Murguia DO Emergency Provider Physician Referring Provider Specialty: Emergency Medicine Address: [address] [place] [address], [address] Email: [email or web address] Admit Provider Physician Attending Provider Specialty: Family Practice Address: [address] [place] [address], [address] Phone: Fax: Email: [email or web address] PRESIDENT [email or web address] RELATIONS Dysphagia Treatment VICE PRESIDENT MEDIA RELATIONS Dysphagia Treatment Start: 09/10/24 10:40 Freq: Status: Active Protocol: Document 09/12/24 12:00 SS (Rec: 09/12/24 12:19 SS [id number]) Dysphagia Treatment Session Time Visit Start Time 10:50 Visit Stop Time 11:18 Total Visit Minutes 28 Visit Information Visit Number 4 Setting Assessment Location Acute Care Visit Type Note Type Treatment Note Next Note Type Next Note Type Treatment Note Patient Information Identification Type Name,ID Wristband Subjective Observations Pt sitting upright in chair in room. No family present during session. On RA. Nursing reports increased alertness and good intake of puree and thin liquids. Pt answered all yes/no questions with yes on this date. She was primarily nonverbal with two occasional of jargon noted. Increased ability to follow simple 1- step directions noted. Treatment Liquids Trialed Thin (IDDSI 0) Solids Trialed Purred (IDDSI 4) Administration Type Tea Spoon,Dependent Feeding Pharyngeal Strategies Sitting Upright (90 deg),Small Bites and Sips Treatment Activities Therapeutic PO trials of thin liquids (water) via tsp and cup and pureed solids via tsp with assessment for s/sx of penetration/aspiration and tolerance of current PO diet. The IDDSI Framework Protocol: IDDSI.1 Assessment Patient Response to Treatment Fair Rehab Potential Fair Assessment of Improvement Upon arrival, pt awake and tracked VICE PRESIDENT MEDIA RELATIONS across the room. She continued to be primarily nonverbal, responding to all questions with a ?yes? with occasional jargon noted. Pt with intermittent wet cough reflex prior to PO trials and wheezing. During therapeutic trials of thin liquid via tsp, pt demonstrated good oral acceptance and containment, suspected delayed AP transport and swallow initiation with premature spillage. She demonstrated consistent overt s/sx of aspiration immediately after every sip re: weak cough. When cued to produce a strong cough, pt appeared to not respond to cueing. For trials of puree, pt demonstrated small bites, munching mastication pattern, prolonged bolus manipulation with extended AP transport, and suspected delay in swallow initiation. Again, she demonstrated immediate wet cough after every bite, which is impossible to differentiate from baseline intermittent cough. Cough strength is judged to be weak and given immunocompromised status, pt is at risk of increased aspiration related complications. Pt does not appear safe for a PO diet at this time with exception of an ice chip protocol to promote oral hygiene and reduce risk of swallow strength decompensation. MBSS is indicated to objectively assess swallow pathophysiology , but pt would likely be unable to tolerate the procedure at this time. VICE PRESIDENT MEDIA RELATIONS recommends NPO status with daily monitoring to continue re-assessing readiness to advance to a PO diet. Updated sign placed in pt's room indicating NPO recommendation. Nursing/MD notified. Discussed NPO recommendation and dietary consult with MD who expressed he will discuss goals of care with family. Continue with ice chips/oral care protocol. Recommendations Diet Order NPO Medication Recommendations Not Recommended by Mouth Treatment Plan Placement Recommendation after Discharge Halfway Facility, Inpatient Rehab Facility Appropriate for Continued Therapy Yes Therapy Recommendations Will continue to follow up daily to assess clinical improvements and potential advancement to PO diet. Additionally, continued to assess for tolerance of ice chip/water protocol to promote oral hygiene and reduce risk of swallow strength decompensation. Referrals/Other Recommended Referrals Dietary Consult
[2024-09-12] MEDS: DEXTROSE 5%-0.9% NS 1,000 ML 84 ML IV (12:34)
--- NOTE | 2024-09-12 13:55 | CM.DPC ---
DCP Cont. Reviewed EMR and team rounds for status updates. Called granddaughter again and was able to start the conversation re: goals of care moving forward, and clarifying who is managing her meds at home. She states that her mother crushes pt's thyroid med in the am and stirs it into her scrambled eggs, it's u/k if she was actually eating all the the meal, evidenced by her high thyroid counts now. This TRAINING SYSTEMS OFFICER did emphasize that our Hospitalist, Dr. Fuentes, needed to speak w/her today re: plan forward, who is managing her thyroid meds, and goals of care. SCALE AGENT evaluated pt today and recommended that she remain NPO, as she is choking and aspirating all food. Will monitor closely for next steps and will coordinate resources and d/c accordingly.
--- NOTE | 2024-09-12 16:50 | P.PN_ITS ---
Subjective Subjective Date Patient Seen: 09/12/24 Time Patient Seen: 08:40 Interval history: 79-year-old female with hypertension, hyperlipidemia, hypothyroidism, cerebrovascular disease with prior left MCA stroke, history of seizure in August 2023 secondary to old stroke, bilateral carotid artery disease, coronary artery disease status post prior CABG, history of tobacco dependence, probable vascular dementia who presented to the emergency department with cough and breathing difficulties. History is obtained from the patient's daughter as the patient is unable to provide any history. Patient's daughter notes that she moved the patient here from [place] 2 years ago. Prior to that she was living with her son. Daughter notes that she and the patient sleep in the same room together. Patient and the daughter's fiance have both been struggling with a cough and sore throat over the past several days. They have also both complained of headaches. At approximately 2:00 a.m. this morning, the patient began coughing very hard and seemed to be struggling to breathe. The patient's daughter subsequently called EMS and had the patient transferred to the emergency department. On arrival to the emergency department, patient had O2 saturations of 79% in room air. She was placed on BiPAP, given 20 mg of IV Lasix, 0.4 mg of sublingual nitroglycerin. Chest x-ray showed no acute cardiopulmonary process. Labs revealed a normal white blood cell count at 9.9, hemoglobin 10.9, platelets 268. D-dimer was 2199. ABG revealed a pH of 7.32, pCO2 54, bicarb 29 on BiPAP. Sodium was 135, glucose 224. AST was elevated at 78, ALT elevated at 46. Troponin was less than 0.012 and remain negative on repeat. Respiratory viral panel was positive for entero/rhino virus. BNP was normal at 347. CT pulmonary angiogram was subsequently performed and revealed no evidence of pulmonary embolism. There was a small right-sided pleural effusion. There was mild dependent consolidation in both lungs. There was a focal consolidation in the left posterior lung including pleural calcification. Atelectasis was felt to be most likely, but differential diagnosis includes infectious infiltrate and neoplasm. Furthermore there was a thoracic aortic stent noted and dense coronary artery calcification. While in the emergency department patient was able to be successfully weaned off of the BiPAP on to 5 L nasal cannula. Prior to transfer to the floor, she was weaned to 3 L. After arrival to the medical unit, patient did fall to sleep and subsequently dropped back down into the 70s on 3 L. She required non-rebreather mask to get her saturations back up to the 90s. Time of my evaluation, patient is presently drowsy but cooperative. Currently on 10 liters/minute via face mask. Interval history: The patient continues to have single word verbal responses. She was felt to be high aspiration risk and recommended NPO by speech therapy today. Exam Vital Signs (past 8 hours): - 09/12/24 09:19 09/12/24 12:00 Temperature 98.3 F Pulse Rate 76 Respiratory Rate 18 Blood Pressure 155/71 H Pulse Oximetry 94 93 Oxygen Delivery Method Room Air Fraction of Inspired Oxygen 28 SaO2/FiO2 Ratio 339 Oxygen Delivery Method Room Air Oxygen Flow Rate 0 Narrative Exam Narrative: GEN: Somnolent elderly female, no acute distress HEENT: Normocephalic, face symmetric, pupils equal round reactive to light, extraocular movements intact, sclerae anicteric, conjunctiva clear, nares patent, oropharynx reveals an intact soft and hard palate with moist mucous membranes NECK: Supple, no lymphadenopathy, thyroid without enlargement or nodularity CHEST: Respiratory excursions symmetric, diminished and coarse but clear to auscultation bilaterally CV: Regular rate and rhythm, no murmurs, rubs, gallops, PMI nondisplaced ABD: Soft, nontender, nondistended, bowel sounds present in all 4 quadrants, no organomegaly or masses appreciated EXTR: Warm, well perfused, no clubbing/cyanosis/edema SKIN: Warm and dry, without rash NEURO: Difficult to assess, more alert today, no obvious focal deficits, occasionally will follow commands. Objective Labs 09/12/24 04:15 09/12/24 04:15 Labs: Laboratory Results - last 24 hr 09/12/24 04:15 WBC 6.1 RBC 2.64 L Hgb 8.7 L Hct 24.2 L MCV 91.6 MCH 32.8 MCHC 35.7 RDW 12.9 Plt Count 182 Neut % (Auto) 74.0 Lymph % (Auto) 19.5 L [place] % (Auto) 6.3 Eos % (Auto) 0.1 L Baso % (Auto) 0.1 Neut # (Auto) 4600 Lymph # (Auto) 1200 [place] # (Auto) 400 Eos # (Auto) 0 Baso # (Auto) 0 Sodium 135 L Potassium 3.1 L Chloride 105 Carbon Dioxide 26 BUN 16 Creatinine 0.75 Estimated GFR > 60 BUN/Creatinine Ratio 21.3 Glucose 116 H Calcium 7.8 L Total Bilirubin 0.4 AST 27 ALT 17 Alkaline Phosphatase 83 Total Protein 6.3 Albumin 3.1 L Globulin 3.2 Albumin/Globulin Ratio 1.0 Free T4 0.42 L PFSH Medical History (Updated 09/08/24 @ 15:10 by Elma Leahy MD) Carotid artery disease Cerebrovascular accident (CVA) Hypothyroidism Hyperlipidemia Hypertension Seizure Social History (Updated 09/08/24 @ 15:11 by Elma Leahy MD) marital status: unmarried,single number of children: 9 household members: family lives independently: No caregiver/support person: Yes Smoking Status: Former smoker alcohol intake: current substance use type: does not use Assessment & Plan Assessment & Plan narrative: 1. Sepsis with Acute hypoxic respiratory failure, acute metabolic encephalopathy, hypotension due to aspiration pneumonia -high risk for recurrent aspiration. 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 -tested positive for rhino virus -hypoxemia resolved off oxygen -Continue Rocephin, completed course of azithromycin. -ADVERTISING AGENT recommends NPO diet, likely aspiration. -if no significant improvement tomorrow, consider MRI for further evaluation of encephalopathy to rule out CVA. -Patient does have a history of tobacco dependence but daughter denies any known history of COPD. She also denies any known history of obstructive sleep apnea. She does not utilize oxygen at baseline. Will work on improving pulmonary hygiene. -care reviewed with granddaughter Karley. We will have a conference tomorrow. 2. Cognitive impairment, dementia versus possible myxedema coma, severe hypothyroidism - TSH 208 on admission, undetectable free t4 on 09/08. With encephalopathy, hypotension, hyponatremia on presentation at 129 continued to treat as myxedema coma with 100 mg q8 hydrocortisione, IV levothyroxine 200 mcg. - repeat thyroid testing every couple of days. - continued levothyroxine 125 mcg. - questionable compliance per granddaughter who states she does not like to take medications - AM cortisol 112. T4 level this AM still low at 3.37. Continued 2 days of above hydrocortisone, then stopped. 3. Rhinovirus Patient had been symptomatic at home with headache, sore throat, and cough. We will continue supportive care. 4. New dx of DM2 No known history of diabetes. Blood sugar was 224 on arrival. Placed on fingersticks and sliding scale. Will place on a controlled carb diet once she is safely able to take oral intake. A1c was 7.5%. 4. Transaminitis She does have mild LFT elevation. This is new from her last visit a year ago. Will repeat LFT is tomorrow and follow. 5. Elevated D-dimer No evidence of PE on CT pulmonary angiogram. Likely elevated secondary to acute pulmonary infection. 6. Anemia Hemoglobin is 10.9 which appears consistent with baseline. 7. Left lung focal infiltrate versus mass This should be followed up for resolution. She does have a longstanding history of tobacco dependence. 8. Cerebrovascular disease Continue PT and OT as tolerated. 9. History of seizure - continue oral keppra 11. Hypertension - hold home BP medications until improved. 12. Disposition: She is followed by [facility] in [place]. Code status Full per granddaughter who is her proxy Prophylaxis Lovenox daily. Disposition Admit to acute care, likely in the hospital for 2-3 more days. PT/OT Time-Based Coding :: [TOTAL MINUTES] spent with patient and on the chart (including review of chart, obtaining history, exam, reviewing outside data, placing orders, documenting exam and treatment plan, and counseling patient) on [DATE]. PROFEE Charge codes Subsequent inpatient/observation care: 51800
[2024-09-12] MEDS: levETIRAcetam 500 MG in SODIUM CHLORIDE 0.9% 100 ML 420 MG IV (21:58)
[2024-09-13 00:22] VITALS: BP 154/72; PULSE 68; RESP 18; TEMP 35.9; O2SAT 98
[2024-09-13] MEDS: INSULIN LISPRO 100 UNIT/ML 3ML VIAL SUBCUT (00:23)
[2024-09-13] MEDS: DEXTROSE 5%-0.9% NS 1,000 ML 84 ML IV ×2 (01:37→13:58)
[2024-09-13 04:00] VITALS: BP 151/77; PULSE 67; RESP 18; TEMP 35.6; O2SAT 93
--- NOTE | 2024-09-13 07:44 | PM.PN.1 ---
Subjective Subjective Date Patient Seen: 09/13/24 Time Patient Seen: 08:04 Interval history: 79-year-old female with hypertension, hyperlipidemia, hypothyroidism, cerebrovascular disease with prior left MCA stroke, history of seizure in August 2023 secondary to old stroke, bilateral carotid artery disease, coronary artery disease status post prior CABG, history of tobacco dependence, probable vascular dementia who presented to the emergency department with cough and breathing difficulties. History is obtained from the patient's daughter as the patient is unable to provide any history. Patient's daughter notes that she moved the patient here from [place] 2 years ago. Prior to that she was living with her son. Daughter notes that she and the patient sleep in the same room together. Patient and the daughter's fiance have both been struggling with a cough and sore throat over the past several days. They have also both complained of headaches. At approximately 2:00 a.m. this morning, the patient began coughing very hard and seemed to be struggling to breathe. The patient's daughter subsequently called EMS and had the patient transferred to the emergency department. On arrival to the emergency department, patient had O2 saturations of 79% in room air. She was placed on BiPAP, given 20 mg of IV Lasix, 0.4 mg of sublingual nitroglycerin. Chest x-ray showed no acute cardiopulmonary process. Labs revealed a normal white blood cell count at 9.9, hemoglobin 10.9, platelets 268. D-dimer was 2199. ABG revealed a pH of 7.32, pCO2 54, bicarb 29 on BiPAP. Sodium was 135, glucose 224. AST was elevated at 78, ALT elevated at 46. Troponin was less than 0.012 and remain negative on repeat. Respiratory viral panel was positive for entero/rhino virus. BNP was normal at 347. CT pulmonary angiogram was subsequently performed and revealed no evidence of pulmonary embolism. There was a small right-sided pleural effusion. There was mild dependent consolidation in both lungs. There was a focal consolidation in the left posterior lung including pleural calcification. Atelectasis was felt to be most likely, but differential diagnosis includes infectious infiltrate and neoplasm. Furthermore there was a thoracic aortic stent noted and dense coronary artery calcification. While in the emergency department patient was able to be successfully weaned off of the BiPAP on to 5 L nasal cannula. Prior to transfer to the floor, she was weaned to 3 L. After arrival to the medical unit, patient did fall to sleep and subsequently dropped back down into the 70s on 3 L. She required non-rebreather mask to get her saturations back up to the 90s. Time of my evaluation, patient is presently drowsy but cooperative. Currently on 10 liters/minute via face mask. Interval history: The patient continues to have single word verbal responses. She was felt to be high aspiration risk again today and recommended continued NPO by speech therapy. Exam Vital Signs (past 8 hours): - 09/13/24 00:22 09/13/24 04:00 Temperature 96.7 F L 96.1 F L Pulse Rate 68 67 Respiratory Rate 18 18 Blood Pressure 154/72 H 151/77 H Pulse Oximetry 98 93 Oxygen Flow Rate 0 0 Fraction of Inspired Oxygen 28 SaO2/FiO2 Ratio 339 Oxygen Delivery Method Room Air Oxygen Flow Rate 0 Narrative Exam Narrative: GEN: Somnolent elderly female, no acute distress HEENT: Normocephalic, face symmetric, pupils equal round reactive to light, extraocular movements intact, sclerae anicteric, conjunctiva clear, nares patent, oropharynx reveals an intact soft and hard palate with moist mucous membranes NECK: Supple, no lymphadenopathy, thyroid without enlargement or nodularity CHEST: Respiratory excursions symmetric, diminished and coarse but clear to auscultation bilaterally CV: Regular rate and rhythm, no murmurs, rubs, gallops, PMI nondisplaced ABD: Soft, nontender, nondistended, bowel sounds present in all 4 quadrants, no organomegaly or masses appreciated EXTR: Warm, well perfused, no clubbing/cyanosis/edema SKIN: Warm and dry, without rash NEURO: Difficult to assess, more alert today, no obvious focal deficits, occasionally will follow commands. Objective Labs 09/12/24 04:15 09/12/24 04:15 [facility], [facility] Medical History Carotid artery disease Cerebrovascular accident (CVA) Hypothyroidism Hyperlipidemia Hypertension Seizure Social History marital status: unmarried,single number of children: 9 household members: family lives independently: No caregiver/support person: Yes Smoking Status: Former smoker alcohol intake: current substance use type: does not use Assessment & Plan Assessment & Plan narrative: 1. Sepsis with Acute hypoxic respiratory failure, acute metabolic encephalopathy, hypotension due to aspiration pneumonia -high risk for recurrent aspiration. 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 -tested positive for rhino virus -hypoxemia resolved off oxygen -Continue Rocephin, completed course of azithromycin. -TURBINE MEASUREMENTS ENGINEER recommends NPO diet, likely aspiration. -if no significant improvement tomorrow, consider MRI for further evaluation of encephalopathy to rule out CVA. -Patient does have a history of tobacco dependence but daughter denies any known history of COPD. She also denies any known history of obstructive sleep apnea. She does not utilize oxygen at baseline. Will work on improving pulmonary hygiene. -care reviewed with granddaughter Karley. We will have a conference tomorrow. 2. Cognitive impairment, dementia versus possible myxedema coma, severe hypothyroidism - TSH 208 on admission, undetectable free t4 on 09/08. With encephalopathy, hypotension, hyponatremia on presentation at 129 continued to treat as myxedema coma with 100 mg q8 hydrocortisione, IV levothyroxine 200 mcg. - repeat thyroid testing every couple of days. - continued levothyroxine 125 mcg. - questionable compliance per granddaughter who states she does not like to take medications - AM cortisol 112. T4 level this AM still low at 3.37. Continued 2 days of above hydrocortisone, then stopped. 3. Rhinovirus Patient had been symptomatic at home with headache, sore throat, and cough. We will continue supportive care. 4. New dx of DM2 No known history of diabetes. Blood sugar was 224 on arrival. Placed on fingersticks and sliding scale. Will place on a controlled carb diet once she is safely able to take oral intake. A1c was 7.5%. 4. Transaminitis She does have mild LFT elevation. This is new from her last visit a year ago. Will repeat LFT is tomorrow and follow. 5. Elevated D-dimer No evidence of PE on CT pulmonary angiogram. Likely elevated secondary to acute pulmonary infection. 6. Anemia Hemoglobin is 10.9 which appears consistent with baseline. 7. Left lung focal infiltrate versus mass This should be followed up for resolution. She does have a longstanding history of tobacco dependence. 8. Cerebrovascular disease Continue PT and OT as tolerated. 9. History of seizure - continue oral keppra 11. Hypertension - hold home BP medications until improved. 12. Disposition: She is followed by [facility] in [place]. Code status Full per granddaughter who is her proxy Prophylaxis Lovenox daily. Disposition Admit to acute care, likely in the hospital for 1-2 more days. Time-Based Coding :: [TOTAL MINUTES] spent with patient and on the chart (including review of chart, obtaining history, exam, reviewing outside data, placing orders, documenting exam and treatment plan, and counseling patient) on [DATE].
[2024-09-13 08:00] VITALS: BP 139/65; PULSE 83; RESP 14; TEMP 36.2; O2SAT 98
[2024-09-13] MEDS: ASPIRIN EC 81 MG TABLET PO (09:54)
[2024-09-13] MEDS: ENOXAPARIN 40 MG/0.4 ML SYRINGE SUBCUT (09:54)
[2024-09-13] MEDS: levETIRAcetam 500 MG in SODIUM CHLORIDE 0.9% 100 ML 420 MG IV ×2 (10:01→21:30)
[2024-09-13 12:00] VITALS: BP 143/65; PULSE 79; RESP 14; TEMP 36.3; O2SAT 92; O2SAT 94
[2024-09-13] MEDS: LEVOTHYROXINE 125 MCG TABLET PO (12:38)
[2024-09-13] MEDS: SODIUM CHLORIDE 0.9% FLUSH 10 ML IV ×2 (12:39→21:30)
--- NOTE | 2024-09-13 13:20 | ST.IPDYTX ---
Visit Care Team Role Provider Type Dionne Murguia DO Emergency Provider Physician Referring Provider Specialty: Emergency Medicine Address: [address] [place] [address], [id number] Email: [email or web address] [email or web address] Provider Physician Attending Provider Specialty: Family Practice Address: [address] [place] [address], [address] Phone: Fax: Email: [email or web address] Dysphagia Treatment ELECTROLOGIST Dysphagia Treatment Start: 09/10/24 10:40 Freq: Status: Active Protocol: Document 09/13/24 13:16 MA (Rec: 09/13/24 13:20 MA [id number]) Dysphagia Treatment Session Time Visit Start Time 09:45 Visit Stop Time 10:15 Total Visit Minutes 30 Visit Information Visit Number 5 Setting Assessment Location Acute Care Visit Type Note Type Treatment Note Next Note Type Next Note Type Treatment Note Patient Information Identification Type Name,ID Wristband Subjective Observations Pt sitting upright in chair in room. No family present during session. She was primarily nonverbal stating no 1x. Treatment Liquids Trialed Thin (IDDSI 0) Solids Trialed Purred (IDDSI 4) Administration Type Tea Spoon,Dependent Feeding Pharyngeal Strategies Sitting Upright (90 deg),Small Bites and Sips Treatment Activities Therapeutic PO trials of thin liquids (water) via tsp and cup and pureed solids via tsp with assessment for s/sx of penetration/aspiration and tolerance of current PO diet. The IDDSI Framework Protocol: IDDSI.1 Assessment Patient Response to Treatment Fair Rehab Potential Fair Assessment of Improvement Upon arrival, pt awake and tracked ELECTROLOGIST across the room. She continued to be primarily nonverbal, responding to no x1 . Pt with intermittent wet cough reflex prior to PO trials and wheezing. During therapeutic trials of thin liquid via tsp, pt demonstrated good oral acceptance and containment, suspected delayed AP transport and swallow initiation with premature spillage. She demonstrated occasional overt s/sx of aspiration immediately after sips of water re: weak cough. When cued to produce a strong cough, pt appeared to not respond to cueing. For trials of puree, pt demonstrated small bites, munching mastication pattern, prolonged bolus manipulation with extended AP transport, and suspected delay in swallow initiation. Again, she demonstrated immediate wet cough x3, which ST is unable to differentiate from baseline intermittent cough. Cough strength is judged to be weak and given immunocompromised status, pt is at risk of increased aspiration related complications. Pt does not appear safe for a PO diet at this time with exception of an ice chip protocol to promote oral hygiene and reduce risk of swallow strength decompensation. MBSS is indicated to objectively assess swallow pathophysiology , but pt would likely be unable to tolerate the procedure at this time. ELECTROLOGIST recommends NPO status with daily monitoring to continue re-assessing readiness to advance to a PO diet. Nursing/ MD notified. Discussed NPO recommendation and dietary consult with MD who expressed he will discuss goals of care with family. Continue with ice chips/oral care protocol. Recommendations Diet Order NPO Medication Recommendations Not Recommended by Mouth Additional Dietary Needs 1:1 Supervision,1:1 Assistance Aspiration Precautions Recommended Precautions Upright at 90 Degrees, Alternate Liquids/Solids, Frequent Rest Periods,Small Bites/Sips,Liquids from Spoon Treatment Plan Placement Recommendation after Discharge Halfway Facility, Inpatient Rehab Facility Appropriate for Continued Therapy Yes Therapy Recommendations Will continue to follow up daily to assess clinical improvements and potential advancement to PO diet. Additionally, continued to assess for tolerance of ice chip/water protocol to promote oral hygiene and reduce risk of swallow strength decompensation. Referrals/Other Recommended Referrals Dietary Consult
--- NOTE | 2024-09-13 15:38 | CM.DANOTE ---
Addendum entered by CASSI Holley 09/13/24 17:24: DCP spoke with pt daughter (Ines) and granddaughter (Karley). Family hopeful to take pt home when medically cleared, they confirmed that pt has been under the care of daughter who is at home 24/7 with pt. Pt daughter does not have a phone and utilizes granddaughter (Karley) as main source of communication. Pt daughter hopeful to have goals of care conversation with hospitalist. DCP notified hospitalist of pt daughter return tomorrow for goals of care convo. Plan: Daughter will return 09/14 at 0900 to speak with hospitalist and hoping for extra caregiver training available. Anticipating pt to discharge home when medically stable with family. JACOB Johnson Original Note: Brief DCP Assessment Note: Pt is a 79yo female, resident of [place], is admitted for Respiratory distress, pneumonia. Pt lives in a house with her family to include daughter and granddaughter, Karley. Pt's Primary Care Provider is [facility] and insurance is Medicare. Reviewed chart and team rounds for pt's medical status and discharge needs. Per rounds, pt still not oriented to time and place. Per ST, pt is recommended to be NPO due to aspiration risk. PT recommending home with 24/7 assist if available. OT discharged orders due to reported that pt is dependent on family members for ADLs. DCP met w/patient at bedside; introduced self and role. Pt was sound asleep, DCP attempted to meet with pt twice. DCP called emergency contact on file, Granddaughter (Karley) at ph#[phone] and no answer twice. Plan: Need goals of care conversation with family members and hospitalist to support safe 24/7 care at home. CM team will follow closely for coordination of discharge plans. JACOB Johnson Discharge Planning/Care Management CM Discharge Assessment Start: 09/13/24 13:27 Freq: Status: Active Protocol: Document 09/13/24 15:34 MW (Rec: 09/13/24 15:34 MW [id number]) Discharge Planning Assessment Assigned Floor Mechanic CASSI Mccurdy DPOA/Assigned Designee Name Ortiz Hall Contact Information [phone] Advance Directives? No History Provided By Medical Record Has Patient been admitted in last 30 No days? Prior Living Arrangements House Household Members family Type of transporation used prior to Relies on Others admit Independent with ADL's No Is patient alert and oriented? No Caregiver for Another No Whiteboard Updated in Patient Room with No name and ext. # of Floor Mechanic Comment [phone] Review Status In Process Please Provide Date Initial DC 09/13/24 Assessment Was Performed Next Review Type Continued Stay Review
[2024-09-13 16:00] VITALS: BP 128/59; PULSE 73; RESP 17; TEMP 36.3; O2SAT 96
--- NOTE | 2024-09-13 16:57 | DIET.CONS ---
Dietary Consultation Note Admission Date: 09/08/2024 07:14 Assessment: 79 y F admitted for resp distress, sepsis, pneumonia. RD screened for LOS. Per team rounds this morning, needed to have goals of care conversation with family. Per ACID BLOWER note, unable to contact family. Pt NPO day 5 per SUPERVISOR STOCK RANCH. Was on pureed diet for 1 day with 50% and 25% po intakes recorded. New dx of DM2 with A1c 7.5% Provided enteral nutrition reccs below if pt's diet is unable to be advanced and if enteral nutrition is within goals of care and medically appropriate. Ht: 144.78 cm Wt: 50.349 kg BMI: 24.0 UBW: 56.5 kg on 09/20/23 (-11% weight loss in 1 yr, non-severe) Last BM: 09/12/24 (09/12/24 23:50) MNA: 11 Chepe Score: 10 Diet: 09/12/24 11:30 NPO Diet Diet Modifications: NPO Type: NPO except for Ice Chips Nutrition Percent Meal Consumed 0% 09/11/24 18:30 Labs: RBC 2.64 X10^6/uL (4.0-5.2) L 09/12/24 04:15 Hgb 8.7 g/dL (12.0-16.0) L 09/12/24 04:15 Hct 24.2 % (36-46) L 09/12/24 04:15 Creatinine 0.75 mg/dL (0.52-1.04) 09/12/24 04:15 Hemoglobin A1c 7.5 % (4.0-6.0) H 09/08/24 03:45 Lactate 1.6 mmol/L (0.7-2.1) 09/08/24 03:45 NT-Pro-B Natriuret Pep 347 pg/mL (<450) 09/08/24 03:45 Nutrition Diagnosis: Inadequate oral intake r/t not safe for PO diet aeb SUPERVISOR STOCK RANCH recommending NPO Interventions: 1. If unable to advance diet and within goals of care, consider enteral nutrition of Glucerna 1.5 starting at 10 mL/hr and advancing as tolerated by 10-20 mL/hr Q6H until goal rate of 35 mL/hr. Flush 100 mL Q4H. Feeds provide 638 mL. Fluid needs 1250 mL (25 mL/kg) Goal rate provides 1260 kcals (100% EER) and 69.5 g protein (100% protein needs) 2. Recc monitoring electrolytes and glucose EER: 1250 kcals/kg (25 kcals/kg per sepsis and BMI) 75 g protein (1.5 g/kg per sepsis) Monitoring/Evaluations: SUPERVISOR STOCK RANCH recc for diet advancement, GOC Electronically Signed by: Mariya Ferguson 09/13/24 16:57 Clinical [address] [address]
[2024-09-13 20:45] VITALS: BP 119/43; PULSE 80; RESP 14; TEMP 36.2; O2SAT 98
--- NOTE | 2024-09-14 | DI.RAD.S_ITS ---
PROCEDURE: XR CHEST FOR PICC 1V INDICATIONS: PICC PLACEMENT COMPARISON: [facility], , XR CHEST 1V, 09/08/2024, 3:43. FINDINGS: PICC was placed by the intravenous therapy team from the right side. Fluoroscopic spot film demonstrates the tip of PICC projecting to the area of inferior right atrium. Small right pleural effusion. IMPRESSION: Tip of PICC projects to the area of inferior right atrium, recommend retraction. Small right pleural effusion. Dictated by: Joseph Damon M.D. on 09/14/2024 at 19:06 Approved by: Joseph Damon M.D. on 09/14/2024 at 19:07
[2024-09-14 01:05] VITALS: BP 154/75; PULSE 72; RESP 16; TEMP 36.3
[2024-09-14] MEDS: INSULIN LISPRO 100 UNIT/ML 3ML VIAL SUBCUT ×2 (01:09→12:31)
[2024-09-14] MEDS: DEXTROSE 5%-0.9% NS 1,000 ML 84 ML IV (03:31)
[2024-09-14 04:05] VITALS: BP 154/73; PULSE 75; RESP 16; TEMP 36.3; O2SAT 97
[2024-09-14 05:00] LABS: Add Manual Diff / Slide Review NO; Basophils Absolute Auto 0 /uL (0-100); Basophils Percent Auto 0.3 % (0-2); Eosinophils Absolute Auto 100 /uL (0-450); Eosinophils Percent Auto 1.8 % (2-4); Hematocrit 26.4 % (36-46); Hemoglobin 9.4 g/dL (12.0-16.0); Lymphocytes Absolute Auto 1500 /uL (1100-4500); Lymphocytes Percent Auto 27.5 % (25-40); Mean Corpuscular HGB Conc 35.4 % (30-36); Mean Corpuscular Hemoglobin 32.7 PG (26-34); Mean Corpuscular Volume 92.4 fL (80-100); Monocytes Absolute Auto 400 /uL (0-900); Monocytes Percent Auto 7.7 % (3-14); Neutrophils Absolute Auto 3300 /uL (1500-7000); Neutrophils Percent Auto 62.7 % (50-75); Platelet Count 156 X10^3/uL (150-400); Red Blood Cell Count 2.86 X10^6/uL (4.0-5.2); Red Cell Distribution Width 13.1 % (11.6-14.8); White Blood Cell Count 5.3 X10^3/uL (4.5-11.0)
[2024-09-14 05:33] LABS: BUN Creatinine Ratio 8.2 (6-22); Blood Urea Nitrogen 4 mg/dL (7-17); Calcium 7.3 mg/dL (8.4-10.2); Carbon Dioxide 29 mmol/L (22-32); Chloride 98 mmol/L (98-107); Estimated Glomerular Filt Rate > 60 mL/min (>60); Glucose 145 mg/dL (80-110); HEMOLYSIS 16 (0-50); Potassium 2.9 mmol/L (3.4-5.1); Sodium 131 mmol/L (137-145)
[2024-09-14 05:58] LABS: T4 Total Thyroxine 3.01 ug/dL (5.5-11.0)
[2024-09-14 06:11] LABS: Thyroid Stimulating Hormone 93.4 uIU/mL (0.47-4.68)
[2024-09-14 08:00] VITALS: BP 136/70; PULSE 74; RESP 18; TEMP 36.2; O2SAT 97
[2024-09-14 08:45] LABS: Magnesium 1.3 mg/dL (1.6-2.3)
[2024-09-14] MEDS: LEVOTHYROXINE 75 MCG TABLET 150 MCG PO (08:52)
[2024-09-14] MEDS: POTASSIUM CHLORIDE IN WATER 10 MEQ/100 ML PIGGYBACK 100 MEQ IV ×3 (08:58→12:59)
[2024-09-14] MEDS: ASPIRIN EC 81 MG TABLET PO (09:11)
[2024-09-14] MEDS: ENOXAPARIN 40 MG/0.4 ML SYRINGE SUBCUT (09:12)
[2024-09-14] MEDS: MAGNESIUM SULFATE 4 GM/100 ML PIGGYBACK IV (10:32)
[2024-09-14] MEDS: levETIRAcetam 500 MG in SODIUM CHLORIDE 0.9% 100 ML 420 MG IV ×2 (10:49→21:21)
--- NOTE | 2024-09-14 11:15 | CM.DPC ---
DCP Cont: SW and MD met bedside with pt and she was not able to participate in discussion or verbalize any answers to simple questions and then pt's Dtr Amaya and Amaya's jaron were bedside and confirm that pt is mostly w/c and bed bound but can ambulate a few steps with FWW and family assist. Dtr Amaya is home / and her Dtr Karley and her spouse live in the home as well but they work during the day. Pt had been able to be spunky, eat lots, and swear at us when she's fiesty. MD discussed that pt currently NPO and likely very chronic thyroid issues that is significantly impacting her ability to function and fight infection. Discussed need currently for artificial nutrition and preference is to start TPN through PICC and therefore to also have her meds through IV to get the most absorption of medications to help determine if pt will improve and make progress vs possible need to discuss Goals of Care if pt does not show improvement. Family strongly emphasizes the goal is for pt to d/c home with them and they feel they can adequately manage her needs. SW encouraged family to look into Medicaid JOSIAS CG as then family could potentially get an additional CG or get some reimbursement. Granddtr Karley manages most of pt's appointments and important documents and Dtr Amaya believes that she is pt's DPOA and that they completed the pwk through the [facility] and Dtr will ask granddtr where the important documents are located in their home. SW strongly encouraged them to bring in a copy to the hospital and PCP office. ROGERIO confirmed that pt was established with PCP Gordon Villareal family practitioner in [place] but she is switched to an office in [place] and family preference is to remain in [place] and pt and Dtr prefer to have the same provider. SW provided list of PCP options in [place] to Dtr to review. Plan: SW to follow for improvements and progress with TPN and thyroid medications for plan of home with family vs need for Goal of Care/Hospice if pt does not make progress. CASSI Mueller
[2024-09-14 12:00] VITALS: BP 148/73; PULSE 77; RESP 18; TEMP 36.4; O2SAT 95
[2024-09-14 12:45] LABS: Phosphorous 1.7 mg/dL (2.8-4.1); Triglycerides 98 mg/dL (35-150)
[2024-09-14] MEDS: POTASSIUM PHOSPHATE 30 MMOL in SODIUM CHLORIDE 0.9% 500 ML 127.5 MMOL IV (14:20)
[2024-09-14] MEDS: LEVOTHYROXINE INJ 100 MCG/5 ML VIAL 400 MCG IV (14:54)
[2024-09-14 16:00] VITALS: BP 153/63; PULSE 70; RESP 17; TEMP 36.2; O2SAT 96
[2024-09-14 16:20] LABS: HEMOLYSIS < 15 (0-50); Magnesium 2.6 mg/dL (1.6-2.3); Potassium 3.7 mmol/L (3.4-5.1)
--- NOTE | 2024-09-14 16:50 | PM.PN.1 ---
Subjective Subjective Date Patient Seen: 09/14/24 Time Patient Seen: 09:25 Interval history: 79-year-old female with hypertension, hyperlipidemia, hypothyroidism, cerebrovascular disease with prior left MCA stroke, history of seizure in August 2023 secondary to old stroke, bilateral carotid artery disease, coronary artery disease status post prior CABG, history of tobacco dependence, probable vascular dementia who presented to the emergency department with cough and breathing difficulties. History is obtained from the patient's daughter as the patient is unable to provide any history. Patient's daughter notes that she moved the patient here from [place] 2 years ago. Prior to that she was living with her son. Daughter notes that she and the patient sleep in the same room together. Patient and the daughter's fiance have both been struggling with a cough and sore throat over the past several days. They have also both complained of headaches. At approximately 2:00 a.m. this morning, the patient began coughing very hard and seemed to be struggling to breathe. The patient's daughter subsequently called EMS and had the patient transferred to the emergency department. On arrival to the emergency department, patient had O2 saturations of 79% in room air. She was placed on BiPAP, given 20 mg of IV Lasix, 0.4 mg of sublingual nitroglycerin. Chest x-ray showed no acute cardiopulmonary process. Labs revealed a normal white blood cell count at 9.9, hemoglobin 10.9, platelets 268. D-dimer was 2199. ABG revealed a pH of 7.32, pCO2 54, bicarb 29 on BiPAP. Sodium was 135, glucose 224. AST was elevated at 78, ALT elevated at 46. Troponin was less than 0.012 and remain negative on repeat. Respiratory viral panel was positive for entero/rhino virus. BNP was normal at 347. CT pulmonary angiogram was subsequently performed and revealed no evidence of pulmonary embolism. There was a small right-sided pleural effusion. There was mild dependent consolidation in both lungs. There was a focal consolidation in the left posterior lung including pleural calcification. Atelectasis was felt to be most likely, but differential diagnosis includes infectious infiltrate and neoplasm. Furthermore there was a thoracic aortic stent noted and dense coronary artery calcification. While in the emergency department patient was able to be successfully weaned off of the BiPAP on to 5 L nasal cannula. Prior to transfer to the floor, she was weaned to 3 L. After arrival to the medical unit, patient did fall to sleep and subsequently dropped back down into the 70s on 3 L. She required non-rebreather mask to get her saturations back up to the 90s. Time of my evaluation, patient is presently drowsy but cooperative. Currently on 10 liters/minute via face mask. Interval history: The patient continues to have single word verbal responses. She continues on NPO status. She is seen in family conference with her daughter Ines and social work nurse today. Her daughter is very concerned about her and wishes her to remain in the hospital for full treatment. Exam Vital Signs (past 8 hours): - 09/14/24 12:00 09/14/24 16:00 Temperature 97.6 F 97.2 F L Pulse Rate 77 70 Respiratory Rate 18 17 Blood Pressure 148/73 H 153/63 H Pulse Oximetry 95 96 Fraction of Inspired Oxygen 28 SaO2/FiO2 Ratio 339 Oxygen Delivery Method Room Air Oxygen Flow Rate 0 Narrative Exam Narrative: GEN: Somnolent elderly female, no acute distress HEENT: Normocephalic, face symmetric, pupils equal round reactive to light, extraocular movements intact, sclerae anicteric, conjunctiva clear, nares patent, oropharynx reveals an intact soft and hard palate with moist mucous membranes NECK: Supple, no lymphadenopathy, thyroid without enlargement or nodularity CHEST: Respiratory excursions symmetric, diminished and coarse but clear to auscultation bilaterally CV: Regular rate and rhythm, no murmurs, rubs, gallops, PMI nondisplaced ABD: Soft, nontender, nondistended, bowel sounds present in all 4 quadrants, no organomegaly or masses appreciated EXTR: Warm, well perfused, no clubbing/cyanosis/edema SKIN: Warm and dry, without rash NEURO: Difficult to assess, more alert today, no obvious focal deficits, occasionally will follow commands. Objective Labs 09/14/24 04:36 09/14/24 15:50 Labs: Laboratory Results - last 24 hr 09/14/24 09/14/24 04:36 15:50 WBC 5.3 RBC 2.86 L Hgb 9.4 L Hct 26.4 L MCV 92.4 MCH 32.7 MCHC 35.4 RDW 13.1 Plt Count 156 Neut % (Auto) 62.7 Lymph % (Auto) 27.5 Imperial % (Auto) 7.7 Eos % (Auto) 1.8 L Baso % (Auto) 0.3 Neut # (Auto) 3300 Lymph # (Auto) 1500 Imperial # (Auto) 400 Eos # (Auto) 100 Baso # (Auto) 0 Sodium 131 L Potassium 2.9 L 3.7 Chloride 98 Carbon Dioxide 29 BUN 4 L Creatinine 0.49 L Estimated GFR > 60 BUN/Creatinine Ratio 8.2 Glucose 145 H Calcium 7.3 L Phosphorus 1.7 L Magnesium 1.3 L 2.6 H Triglycerides 98 TSH 93.4 H Thyroxine (T4) 3.01 L Free T3 1.30 L PFSH Medical History Carotid artery disease Cerebrovascular accident (CVA) Hypothyroidism Hyperlipidemia Hypertension Seizure Social History marital status: unmarried,single number of children: 9 household members: family lives independently: No caregiver/support person: Yes Smoking Status: Former smoker alcohol intake: current substance use type: does not use Assessment & Plan Assessment & Plan narrative: 1. Sepsis with acute hypoxic respiratory failure, acute metabolic encephalopathy, hypotension due to aspiration pneumonia -high risk for recurrent aspiration. She remains NPO at this point. 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 -tested positive for rhino virus -hypoxemia resolved off oxygen -Continue Rocephin, completed course of azithromycin. -RETAIL LEASING AGENT recommends NPO diet, likely aspiration. -obtained MRI for further evaluation of encephalopathy to rule out CVA. -Patient does have a history of tobacco dependence but daughter denies any known history of COPD. She also denies any known history of obstructive sleep apnea. She does not utilize oxygen at baseline. -care reviewed with granddaughter Karley in detail. -place PICC line -start TPN -switch levothyroxine to IV 2. Cognitive impairment, dementia versus possible myxedema coma, severe hypothyroidism - TSH 208 on admission, undetectable free t4 on 09/08. With encephalopathy, hypotension, hyponatremia on presentation at 129 continued to treat as myxedema coma with 100 mg q8 hydrocortisione, IV levothyroxine 200 mcg. - repeat thyroid testing every couple of days. - switched to levothyroxine intravenous 400 mcg IV twice weekly (equivalent 150 mcg by mouth daily) - questionable compliance per granddaughter who states she does not like to take medications versus poor absorption 1 mixed with oatmeal and eggs at home - AM cortisol 112. T4 level this AM still low at 3.37. Continued 2 days of above hydrocortisone, then stopped. 3. Rhinovirus -Patient had been symptomatic at home with headache, sore throat, and cough. We will continue supportive care. 4. New dx of DM2 -No known history of diabetes. Blood sugar was 224 on arrival. Placed on fingersticks and sliding scale. Will place on a controlled carb diet once she is safely able to take oral intake. A1c was 7.5%. 4. Transaminitis -She does have mild LFT elevation. This is new from her last visit a year ago. Will repeat LFT is tomorrow and follow. 5. Elevated D-dimer -No evidence of PE on CT pulmonary angiogram. Likely elevated secondary to acute pulmonary infection. 6. Anemia -Hemoglobin is 10.9 which appears consistent with baseline. 7. Left lung focal infiltrate versus mass -This should be followed up for resolution. She does have a longstanding history of tobacco dependence. 8. Cerebrovascular disease -Continue PT and OT as tolerated. 9. History of seizure - continue IV keppra 11. Hypertension - hold home BP medications until improved. 12. Disposition: She is followed by [facility]DR[facility] in [place]. Code status Full per granddaughter who is her proxy Prophylaxis Lovenox daily. Disposition Admitted to acute care, likely in the hospital for several more days. Time-Based Coding :: [TOTAL MINUTES] spent with patient and on the chart (including review of chart, obtaining history, exam, reviewing outside data, placing orders, documenting exam and treatment plan, and counseling patient) on [DATE]. PROFEE Charge codes Subsequent inpatient/observation care: 04952
[2024-09-14] MEDS: DEXTROSE 5%-0.9% NS 1,000 ML 22 ML IV ×2 (18:09→23:26)
--- NOTE | 2024-09-14 18:15 | PC.NURSE ---
Addendum entered by Mirta Young R.N. 09/14/24 18:49: Pt received [facility] riders T/O shift. Original Note: Pt had relatively uneventful day, Condition remains essentially unchanged. Rivera cath pataent sammy urine. Pt receiving PICC for TPN Call light w/in reach, bed alarm on for pt safety. Continue w/plan of care.
--- NOTE | 2024-09-14 19:31 | DI.RAD.S_ITS ---
PROCEDURE: XR CHEST FOR PICC 1V INDICATIONS: picc to right arm needed to be retracted TECHNIQUE: One view of the chest was acquired. COMPARISON: [facility], CT, CT ANGIO CHEST PE PROTOCOL, 09/08/2024, 5:22. [facility], CR, XR CHEST 1V, 09/08/2024, 3:43. [facility], CR, XR CHEST FOR PICC 1V, 09/14/2024, 18:43. FINDINGS: Surgical changes and devices: A right-sided PICC line is seen, with the tip having been adjusted, and now overlying the mid aspect of the superior vena cava, 4 cm above the cavoatrial junction. Sternotomy wires are seen. A percutaneously placed aortic valve replacement can be seen. Lungs and pleura: On this semiupright portable chest examination, no large pneumothorax is seen. There is blunting of the right costophrenic angle. Mild right midlung consolidation is seen. Mediastinum: The cardiac contours are within normal limits. The aorta demonstrates calcification and tortuosity. Bones and chest wall: No suspicious bony lesions. Age-appropriate bony degenerative changes are seen. Overlying soft tissues appear unremarkable. IMPRESSION: The tip of the right-sided PICC line can now be seen overlying the mid aspect of the superior vena cava. Right mid lung consolidation is seen. Atelectasis is suspected, although please consider mild/early infiltrate. Dictated by: Mikey Spence M.D. on 09/14/2024 at 19:08 Approved by: Mikey Spence M.D. on 09/14/2024 at 19:12
[2024-09-14 20:00] VITALS: BP 151/73; PULSE 74; RESP 20; TEMP 35.8; O2SAT 92
[2024-09-14] MEDS: CALCIUM IV (21:19)
[2024-09-14] MEDS: FAT EMULSIONS 50 GM/250 ML EMULSION IV (21:19)
[2024-09-14] MEDS: DEXT IV (21:19)
[2024-09-14] MEDS: LYTES IV (21:19)
[2024-09-14] MEDS: TRACE ELEMENTS IV (21:19)
[2024-09-14] MEDS: [UNRECOGNIZED DRUG - OTHER] IV (21:19)
[2024-09-14] MEDS: MULTIVITAMIN IV (21:19)
[2024-09-15] VITALS: BP 149/72; PULSE 78; RESP 20; TEMP 35.8; O2SAT 94
[2024-09-15 04:00] VITALS: BP 155/77; PULSE 89; RESP 20; TEMP 36.3; O2SAT 98
[2024-09-15 05:14] LABS: Alanine Aminotransferase 15 IU/L (<35); Alkaline Phosphatase 75 U/L (38-126); Aspartate Aminotransferase 26 IU/L (14-36); BUN Creatinine Ratio 6.8 (6-22); Bilirubin Total 0.4 mg/dL (0.2-1.3); Blood Urea Nitrogen 3 mg/dL (7-17); Calcium 7.2 mg/dL (8.4-10.2); Carbon Dioxide 27 mmol/L (22-32); Chloride 97 mmol/L (98-107); Estimated Glomerular Filt Rate > 60 mL/min (>60); Globulin 3.1 g/dL (1.7-4.1); Glucose 194 mg/dL (80-110); HEMOLYSIS 30 (0-50); Magnesium 2.1 mg/dL (1.6-2.3); Phosphorous 3.3 mg/dL (2.8-4.1); Potassium 3.6 mmol/L (3.4-5.1); Sodium 128 mmol/L (137-145); Total Protein 6.1 g/dL (6.3-8.2)
[2024-09-15] MEDS: INSULIN LISPRO 100 UNIT/ML 3ML VIAL SUBCUT ×3 (06:20→18:29)
[2024-09-15] MEDS: levETIRAcetam 500 MG in SODIUM CHLORIDE 0.9% 100 ML 420 MG IV ×2 (07:21→18:33)
[2024-09-15 08:00] VITALS: BP 153/71; PULSE 84; RESP 17; TEMP 36.4; O2SAT 93
--- NOTE | 2024-09-15 09:39 | PM.PN.1 ---
Subjective Subjective Date Patient Seen: 09/15/24 Time Patient Seen: 09:30 Interval history: 79-year-old female with hypertension, hyperlipidemia, hypothyroidism, cerebrovascular disease with prior left MCA stroke, history of seizure in August 2023 secondary to old stroke, bilateral carotid artery disease, coronary artery disease status post prior CABG, history of tobacco dependence, probable vascular dementia who presented to the emergency department with cough and breathing difficulties. History is obtained from the patient's daughter as the patient is unable to provide any history. Patient's daughter notes that she moved the patient here from [place] 2 years ago. Prior to that she was living with her son. Daughter notes that she and the patient sleep in the same room together. Patient and the daughter's fiance have both been struggling with a cough and sore throat over the past several days. They have also both complained of headaches. At approximately 2:00 a.m. this morning, the patient began coughing very hard and seemed to be struggling to breathe. The patient's daughter subsequently called EMS and had the patient transferred to the emergency department. On arrival to the emergency department, patient had O2 saturations of 79% in room air. She was placed on BiPAP, given 20 mg of IV Lasix, 0.4 mg of sublingual nitroglycerin. Chest x-ray showed no acute cardiopulmonary process. Labs revealed a normal white blood cell count at 9.9, hemoglobin 10.9, platelets 268. D-dimer was 2199. ABG revealed a pH of 7.32, pCO2 54, bicarb 29 on BiPAP. Sodium was 135, glucose 224. AST was elevated at 78, ALT elevated at 46. Troponin was less than 0.012 and remain negative on repeat. Respiratory viral panel was positive for entero/rhino virus. BNP was normal at 347. CT pulmonary angiogram was subsequently performed and revealed no evidence of pulmonary embolism. There was a small right-sided pleural effusion. There was mild dependent consolidation in both lungs. There was a focal consolidation in the left posterior lung including pleural calcification. Atelectasis was felt to be most likely, but differential diagnosis includes infectious infiltrate and neoplasm. Furthermore there was a thoracic aortic stent noted and dense coronary artery calcification. While in the emergency department patient was able to be successfully weaned off of the BiPAP on to 5 L nasal cannula. Prior to transfer to the floor, she was weaned to 3 L. After arrival to the medical unit, patient did fall to sleep and subsequently dropped back down into the 70s on 3 L. She required non-rebreather mask to get her saturations back up to the 90s. Time of my evaluation, patient is presently drowsy but cooperative. Currently on 10 liters/minute via face mask. Interval history: The patient continues to have single word verbal responses. She continues on NPO status with TPN started yesterday. She was seen in family conference with her daughter Ines and social research assistant yesterday. See notes. No new events Exam Vital Signs (past 8 hours): - 09/15/24 04:00 09/15/24 07:00 09/15/24 08:00 Temperature 97.4 F L 97.5 F L Pulse Rate 89 84 Respiratory Rate 20 17 Blood Pressure 155/77 H 153/71 H Pulse Oximetry 98 93 Oxygen Delivery Method Room Air Oxygen Flow Rate 0 Fraction of Inspired Oxygen 28 SaO2/FiO2 Ratio 339 Oxygen Delivery Method Room Air Oxygen Flow Rate 0 Narrative Exam Narrative: GEN: Somnolent but arousable elderly female, no acute distress HEENT: Normocephalic, face symmetric, pupils equal round reactive to light, extraocular movements intact, oropharynx with moist mucous membranes NECK: Supple. CHEST: Clear to auscultation bilaterally. CV: Regular rate and rhythm, no murmurs, rubs, gallops. ABD: Soft, nontender, nondistended, bowel sounds present. EXTR: No edema SKIN: Warm and dry, without rash NEURO: Alert, single word responses, typically ?yes?, no obvious focal deficits, will follow simple commands. Objective Labs 09/14/24 04:36 09/15/24 04:26 Labs: Laboratory Results - last 24 hr 09/14/24 09/14/24 09/15/24 04:36 15:50 04:26 Sodium 128 L Potassium 3.7 3.6 Chloride 97 L Carbon Dioxide 27 BUN 3 L Creatinine 0.44 L Estimated GFR > 60 BUN/Creatinine Ratio 6.8 Glucose 194 H Calcium 7.2 L Phosphorus 1.7 L 3.3 D Magnesium 2.6 H 2.1 Total Bilirubin 0.4 AST 26 ALT 15 Alkaline Phosphatase 75 Total Protein 6.1 L Albumin 3.0 L Globulin 3.1 Albumin/Globulin Ratio 1.0 Triglycerides 98 [facility] Medical History Carotid artery disease Cerebrovascular accident (CVA) Hypothyroidism Hyperlipidemia Hypertension Seizure Social History marital status: unmarried,single number of children: 9 household members: family lives independently: No caregiver/support person: Yes Smoking Status: Former smoker alcohol intake: current substance use type: does not use Assessment & Plan Assessment & Plan narrative: 1. Sepsis with acute hypoxic respiratory failure, acute metabolic encephalopathy, hypotension due to aspiration pneumonia -high risk for recurrent aspiration. She remains NPO at this point. 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 -tested positive for rhino virus -hypoxemia resolved off oxygen -discontinue ceftriaxone today, completed course of azithromycin. -INFANT ROOM TEACHER recommends NPO diet, likely aspiration. -obtained MRI for further evaluation of encephalopathy to rule out CVA. -Patient does have a history of tobacco dependence but daughter denies any known history of COPD. She also denies any known history of obstructive sleep apnea. She does not utilize oxygen at baseline. -care reviewed with granddaughter Karley in detail. -PICC line placed in left upper arm 09/14/2024. -continue TPN started 09/14/2024 -switch levothyroxine to IV 2. Cognitive impairment, dementia versus possible myxedema coma, severe hypothyroidism - TSH 208 on admission, undetectable free t4 on 09/08. With encephalopathy, hypotension, hyponatremia on presentation at 129 continued to treat as myxedema coma - repeat thyroid testing every couple of days. - switched to levothyroxine intravenous 400 mcg IV twice weekly (equivalent 150 mcg by mouth daily) - questionable compliance per granddaughter who states she does not like to take medications versus poor absorption 1 mixed with oatmeal and eggs at home - AM cortisol 112. T4 level this AM still low at 3.37. Continued 2 days of above hydrocortisone, then stopped. 3. Rhinovirus -Patient had been symptomatic at home with headache, sore throat, and cough. Resume soft. We will continue supportive care. 4. New dx of DM2 -No known history of diabetes. Blood sugar was 224 on arrival. Placed on fingersticks and sliding scale. Will place on a controlled carb diet once she is safely able to take oral intake. A1c was 7.5%. 4. Transaminitis -resolved on repeat testing. 5. Elevated D-dimer -No evidence of PE on CT pulmonary angiogram. Likely elevated secondary to acute pulmonary infection. 6. Anemia -Hemoglobin is 10.9 which appears consistent with baseline. 7. Left lung focal infiltrate versus mass -This should be followed up for resolution. She does have a longstanding history of tobacco dependence. 8. Cerebrovascular disease -Continue PT and OT as tolerated. 9. History of seizure - continue IV keppra 11. Hypertension - hold home BP medications until improved. 12. Disposition: She is followed by [facility] in [place]. Code status Full per granddaughter who is her proxy Prophylaxis Lovenox daily. Disposition Admitted to acute care, likely in the hospital for several more days for IV levothyroxine to reverse potential reversible causes of dementia (myxedema coma from severe untreated hypothyroidism) and nutrition with IV TPN until able to take oral feedings safely. If not improved in a few days may reconsider. Time-Based Coding :: [TOTAL MINUTES] spent with patient and on the chart (including review of chart, obtaining history, exam, reviewing outside data, placing orders, documenting exam and treatment plan, and counseling patient) on [DATE]. PROFEE Charge codes Subsequent inpatient/observation care: 28681
[2024-09-15] MEDS: ENOXAPARIN 40 MG/0.4 ML SYRINGE SUBCUT (11:48)
[2024-09-15 12:00] VITALS: BP 152/70; PULSE 80; RESP 18; TEMP 36.4; O2SAT 93
[2024-09-15 16:00] VITALS: BP 166/77; PULSE 80; RESP 16; TEMP 36.4; O2SAT 93
[2024-09-15] MEDS: AA 5 %/CALCIUM/LYTES/DEXT 20 % 1,000 ML with MULTIVITAMIN 10 ML, TRACE ELEMENTS 1 ML, F... 42.875 ML IV (17:02)
[2024-09-15 20:00] VITALS: BP 159/78; PULSE 81; RESP 22; TEMP 36; O2SAT 97
[2024-09-15] MEDS: SODIUM CHLORIDE 0.9% FLUSH 10 ML IV (21:43)
[2024-09-15] MEDS: DEXTROSE 5%-0.9% NS 1,000 ML 40 ML IV (22:53)
[2024-09-16] VITALS (7 sets, daily range): BP systolic 126–161; BP diastolic 48–75; PULSE 69–78; RESP 15–22; TEMP 35.8–36.7; O2SAT 95–98
[2024-09-16] MEDS: INSULIN LISPRO 100 UNIT/ML 3ML VIAL SUBCUT ×4 (00:04→18:04)
[2024-09-16 05:37] LABS: Add Manual Diff / Slide Review NO; Basophils Absolute Auto 0 /uL (0-100); Basophils Percent Auto 0.7 % (0-2); Eosinophils Absolute Auto 200 /uL (0-450); Eosinophils Percent Auto 3.1 % (2-4); Hematocrit 24.7 % (36-46); Hemoglobin 8.9 g/dL (12.0-16.0); Lymphocytes Absolute Auto 900 /uL (1100-4500); Lymphocytes Percent Auto 16.8 % (25-40); Mean Corpuscular Hemoglobin 32.9 PG (26-34); Mean Corpuscular Volume 91.4 fL (80-100); Monocytes Absolute Auto 400 /uL (0-900); Monocytes Percent Auto 6.9 % (3-14); Neutrophils Absolute Auto 3900 /uL (1500-7000); Neutrophils Percent Auto 72.5 % (50-75); Platelet Count 188 X10^3/uL (150-400); White Blood Cell Count 5.3 X10^3/uL (4.5-11.0)
[2024-09-16 05:53] LABS: Alanine Aminotransferase 11 IU/L (<35); Alkaline Phosphatase 57 U/L (38-126); Aspartate Aminotransferase 27 IU/L (14-36); BUN Creatinine Ratio 19.6 (6-22); Bilirubin Total 0.6 mg/dL (0.2-1.3); Blood Urea Nitrogen 9 mg/dL (7-17); Calcium 7.5 mg/dL (8.4-10.2); Carbon Dioxide 27 mmol/L (22-32); Chloride 97 mmol/L (98-107); Estimated Glomerular Filt Rate > 60 mL/min (>60); Globulin 3.1 g/dL (1.7-4.1); Glucose 211 mg/dL (80-110); Magnesium 1.9 mg/dL (1.6-2.3); Phosphorous 3.3 mg/dL (2.8-4.1); Potassium 4.2 mmol/L (3.4-5.1); Sodium 127 mmol/L (137-145); Total Protein 6.1 g/dL (6.3-8.2)
[2024-09-16 06:12] LABS: HEMOLYSIS 64 (0-50)
[2024-09-16 06:35] LABS: Free T3, Triiodothyronine Free 2.43 pg/mL (2.77-5.27); Free T4, Direct Thyroxine 1.18 ng/dL (0.78-2.19); T4 Total Thyroxine 7.64 ug/dL (5.5-11.0)
[2024-09-16] MEDS: levETIRAcetam 500 MG in SODIUM CHLORIDE 0.9% 100 ML 420 MG IV ×2 (07:12→18:04)
--- NOTE | 2024-09-16 08:16 | P.PN_ITS ---
Subjective Subjective Interval history: Summary: 79-year-old female with hypertension, hyperlipidemia, hypothyroidism, cerebrovascular disease with prior left MCA stroke, history of seizure in August 2023 secondary to old stroke, bilateral carotid artery disease, coronary artery disease status post prior CABG, history of tobacco dependence, probable vascular dementia who presented to the emergency department with cough and breathing difficulties. History is obtained from the patient's daughter as the patient is unable to provide any history. Patient's daughter notes that she moved the patient here from [place] 2 years ago. Prior to that she was living with her son. Daughter notes that she and the patient sleep in the same room together. Patient and the daughter's fiance have both been struggling with a cough and sore throat over the past several days. They have also both complained of headaches. At approximately 2:00 a.m. this morning, the patient began coughing very hard and seemed to be struggling to breathe. The patient's daughter subsequently called EMS and had the patient transferred to the emergency department. On arrival to the emergency department, patient had O2 saturations of 79% in room air. She was placed on BiPAP, given 20 mg of IV Lasix, 0.4 mg of sublingual nitroglycerin. Chest x-ray showed no acute cardiopulmonary process. Labs revealed a normal white blood cell count at 9.9, hemoglobin 10.9, platelets 268. D-dimer was 2199. ABG revealed a pH of 7.32, pCO2 54, bicarb 29 on BiPAP. Sodium was 135, glucose 224. AST was elevated at 78, ALT elevated at 46. Troponin was less than 0.012 and remain negative on repeat. Respiratory viral panel was positive for entero/rhino virus. BNP was normal at 347. CT pulmonary angiogram was subsequently performed and revealed no evidence of pulmonary embolism. There was a small right-sided pleural effusion. There was mild dependent consolidation in both lungs. There was a focal consolidation in the left posterior lung including pleural calcification. Atelectasis was felt to be most likely, but differential diagnosis includes infectious infiltrate and neoplasm. Furthermore there was a thoracic aortic stent noted and dense coronary artery calcification. While in the emergency department patient was able to be successfully weaned off of the BiPAP on to 5 L nasal cannula. Prior to transfer to the floor, she was weaned to 3 L. After arrival to the medical unit, patient did fall to sleep and subsequently dropped back down into the 70s on 3 L. She required non-rebreather mask to get her saturations back up to the 90s. Time of my evaluation, patient is presently drowsy but cooperative. Currently on 10 liters/minute via face mask. Interval history: The patient continues to have single word verbal responses. She continues on NPO status with TPN started yesterday. She was seen in family conference with her daughter Ines and social service coordinator yesterday. S: No really awake or talking. Comfortable. Exam Vital Signs (past 8 hours): - 09/16/24 04:00 Temperature 97.2 F L Pulse Rate 78 Respiratory Rate 20 Blood Pressure 127/64 Pulse Oximetry 96 Oxygen Flow Rate 0 Fraction of Inspired Oxygen 28 SaO2/FiO2 Ratio 339 Oxygen Delivery Method Room Air Oxygen Flow Rate 0 Narrative Exam Narrative: Not awake or talking. NAD. Lungs are clear, normal rate and effort. Heart is regular, no murmur gallop or rub. Abdomen is soft, non distended. Extremities are free of edema. Objective Labs 09/16/24 04:37 09/16/24 04:37 Labs: Laboratory Results - last 24 hr 09/16/24 04:37 WBC 5.3 RBC 2.70 L Hgb 8.9 L Hct 24.7 L MCV 91.4 MCH 32.9 MCHC 36.0 RDW 13.0 Plt Count 188 Neut % (Auto) 72.5 Lymph % (Auto) 16.8 L Marion % (Auto) 6.9 Eos % (Auto) 3.1 Baso % (Auto) 0.7 Neut # (Auto) 3900 Lymph # (Auto) 900 L Marion # (Auto) 400 Eos # (Auto) 200 Baso # (Auto) 0 Sodium 127 L Potassium 4.2 Chloride 97 L Carbon Dioxide 27 BUN 9 Creatinine 0.46 L Estimated GFR > 60 BUN/Creatinine Ratio 19.6 Glucose 211 H Calcium 7.5 L Phosphorus 3.3 Magnesium 1.9 Total Bilirubin 0.6 AST 27 ALT 11 Alkaline Phosphatase 57 Total Protein 6.1 L Albumin 3.0 L Globulin 3.1 Albumin/Globulin Ratio 1.0 Free T4 1.18 Thyroxine (T4) 7.64 D Free T3 2.43 L [facility] Medical History Carotid artery disease Cerebrovascular accident (CVA) Hypothyroidism Hyperlipidemia Hypertension Seizure Social History marital status: unmarried,single number of children: 9 household members: family lives independently: No caregiver/support person: Yes Smoking Status: Former smoker alcohol intake: current substance use type: does not use Assessment & Plan Assessment & Plan narrative: 1. Sepsis with acute hypoxic respiratory failure, acute metabolic encephalopathy, hypotension due to aspiration pneumonia -high risk for recurrent aspiration. She remains NPO at this point. 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 -tested positive for rhinovirus -hypoxemia resolved off oxygen -discontinue ceftriaxone 09/15, completed course of azithromycin. -CORDWAINER recommends pureed when awake and stop if she coughs. -Patient does have a history of tobacco dependence but daughter denies any known history of COPD. She also denies any known history of obstructive sleep apnea. She does not utilize oxygen at baseline. -PICC line placed in left upper arm 09/14/2024. -continue TPN started 09/14/2024 -continue levothyroxine IV 2. Cognitive impairment, dementia versus possible myxedema coma, severe hypothyroidism - TSH 208 on admission, undetectable free t4 on 09/08. With encephalopathy, hypotension, hyponatremia on presentation at 129 continued to treat as myxedema coma - repeat thyroid testing every couple of days. - switched to levothyroxine intravenous 400 mcg IV twice weekly (equivalent 150 mcg by mouth daily) - questionable compliance per granddaughter who states she does not like to take medications versus poor absorption 1 mixed with oatmeal and eggs at home - AM cortisol 112. T4 level this AM still low at 3.37. Continued 2 days of above hydrocortisone, then stopped. 3. Rhinovirus, resolving. -Patient had been symptomatic at home with headache, sore throat, and cough. Resume soft. We will continue supportive care. 4. New dx of DM2, stable. -No known history of diabetes. Blood sugar was 224 on arrival. Placed on fingersticks and sliding scale. Will place on a controlled carb diet once she is safely able to take oral intake. A1c was 7.5%. 4. Transaminitis, resolved. -resolved on repeat testing. 5. Elevated D-dimer -No evidence of PE on CT pulmonary angiogram. Likely elevated secondary to acute pulmonary infection. 6. Anemia, stable. -Hemoglobin is 10.9 which appears consistent with baseline. 7. Left lung focal infiltrate versus mass, stable. -This should be followed up for resolution. She does have a longstanding history of tobacco dependence. 8. Cerebrovascular disease, stable. -Continue PT and OT as tolerated. 9. History of seizure, stable. - continue IV keppra 11. Hypertension, stable. 157/73. - hold home BP medications until improved. PLAN: -continue thyroid supplementation and TPN and monitor mental status. -we will discuss the possibility of an NG tube and enteral feeding with the family. Code status Full per granddaughter who is her proxy Prophylaxis Lovenox daily. Disposition Admitted to acute care, likely in the hospital for several more days for IV levothyroxine to reverse potential reversible causes of dementia (myxedema coma from severe untreated hypothyroidism) and nutrition with IV TPN until able to take oral feedings safely. If not improved in a few days may reconsider. Time-Based Coding :: [TOTAL MINUTES] spent with patient and on the chart (including review of chart, obtaining history, exam, reviewing outside data, placing orders, documenting exam and treatment plan, and counseling patient) on [DATE].
[2024-09-16] MEDS: SODIUM CHLORIDE 0.9% FLUSH 10 ML IV (10:08)
[2024-09-16] MEDS: ENOXAPARIN 40 MG/0.4 ML SYRINGE SUBCUT (10:08)
--- NOTE | 2024-09-16 13:22 | DIET.CONS ---
Addendum entered by Mariya Ferguson 09/16/24 15:03: Per speech therapist, diet advanced to pureed. Recc continuing 1 L of Clinimix 5/20 tonight at 42 ml/h and re-assess PO intakes and diet tolerance tomorrow. Original Note: Dietary Consultation Note Admission Date: 09/08/2024 07:14 Assessment: RD consulted for TPN. TPN started this Monday, was started at 21 mL/hr and advanced to now 1 L running at 42 ml/hr. Mg, phos, K+ within normal range. Can maintain TPN at 1 L of Clinimix 5/20. This is goal rate and with lipids being provided 3x/week it meets 1094 kcals (88% EER) and 50 g protein (77% protein needs) Nutrition Diagnosis: Inadequate oral intake r/t not safe for PO diet aeb BUSINESS OPERATIONS MANAGER recommending NPO EER: 9244-3602 kcals/kg (25-30 kcals/kg per BMI) 65-75 g protein (1.25-1.5 g/kg per sepsis) Ht: 144.78 cm Wt: 50.349 kg BMI: 24.0 UBW: Last BM: 09/13/24 (09/13/24 18:00) MNA: 11 Chepe Score: 14 Diet: 09/12/24 11:30 NPO Diet Diet Modifications: NPO Type: NPO except for Ice Chips Labs: RBC 2.70 X10^6/uL (4.0-5.2) L 09/16/24 04:37 Hgb 8.9 g/dL (12.0-16.0) L 09/16/24 04:37 Hct 24.7 % (36-46) L 09/16/24 04:37 Creatinine 0.46 mg/dL (0.52-1.04) L 09/16/24 04:37 Hemoglobin A1c 7.5 % (4.0-6.0) H 09/08/24 03:45 Lactate 1.6 mmol/L (0.7-2.1) 09/08/24 03:45 NT-Pro-B Natriuret Pep 347 pg/mL (<450) 09/08/24 03:45 Electronically Signed by: Mariya Ferguson 09/16/24 13:22 Clinical Dietitian [address] [address]
--- NOTE | 2024-09-16 13:25 | ST.IPDYTX ---
Visit Care Team Role Provider Type Dionne Murguia DO Emergency Provider Physician Referring Provider Specialty: Emergency Medicine Address: [address] [place] [address], [address] Email: [email or web address] Admit Provider Physician Attending Provider Specialty: Family Practice Address: [address] [place] [address], [address] Phone: Fax: Email: [email or web address] Dysphagia Treatment TOWER CONTROL OPERATOR Dysphagia Treatment Start: 09/10/24 10:40 Freq: Status: Active Protocol: Document 09/16/24 12:50 SS (Rec: 09/16/24 13:25 SS [id number]) Dysphagia Treatment Session Time Visit Start Time 12:25 Visit Stop Time 12:50 Total Visit Minutes 25 Visit Information Visit Number 6 Setting Assessment Location Acute Care Visit Type Note Type Treatment Note Next Note Type Next Note Type Treatment Note Patient Information Identification Type Name,ID Wristband Subjective Observations Pt asleep upon TOWER CONTROL OPERATOR arrival. She woke up to TOWER CONTROL OPERATOR's voice. Adjusted ped positioning for pt to sit fully upright during PO trials. RN consulted with no change in overall medical condition noted. No family present during session. Pt continued to be primarily nonverbal stating no x2 and multiple instances of jargon. Treatment Liquids Trialed Ice chips,Thin (IDDSI 0) Solids Trialed Purred (IDDSI 4) Administration Type Tea Spoon,Dependent Feeding Pharyngeal Strategies Sitting Upright (90 deg),Small Bites and Sips Treatment Activities Therapeutic PO trials of thin liquids (water) via tsp, ice chips, and pureed solids via tsp with assessment for s/sx of penetration/aspiration and tolerance of potential advancement to PO diet. The IDDSI Framework Protocol: IDDSI.1 Assessment Patient Response to Treatment Fair Rehab Potential Fair Assessment of Improvement Pt was largely nonverbal, though able to say no? several times throughout session. SpO2 at 95-96% at RA prior and with PO intake. The following PO trials were presented: ice chips, thin liquid (water), and puree ( apple sauce). Oral phase was characterized by good bolus acceptance and containment, adequate mastication and good bolus formation, and apparently timely and efficient AP lingual transport . Pt demonstrated mild oral residue with solids (unable to manage with cuing) which was cleared with liquid wash. Pharyngeal phase appeared timely and coordinated. She demonstrated clear vocal quality immediately after swallows and no overt s/sx of aspiration/penetration immediately after swallow. Pt currently presents with moderate oropharyngeal dysphagia. MBSS is indicated to objectively assess swallow pathophysiology, but pt continues to have difficulty maintaining alertness and remaining upright to tolerate the procedure at this time. Recommend advancement to PO diet to pureed solids (IDDSI 4 ) and thin liquids (IDDSI 0) via tsp given clinical improvements noted on this date. Following strategies in place for all PO intake: pt must be fully alert and awake, upright 90 degrees during and at least 30 minutes after PO intake, strict oral care before/after meals, small bites/sips, 1:1 supervision and feeding assist, and discontinue PO intake with any overt s/sx of aspiration/ penetration. Pt does present with impulsivity and decreased adherence to swallowing precautions without cueing, thus is at an elevated risk of aspiration without supervision. Sign placed in Pt 's room indicating diet recommendations and safe swallowing strategies. RN and MD notified. Recommendations Recommendations Upgrade Diet Order Liquids Order Thin (IDDSI 0) Diet Order Pureed (IDDSI 4) Medication Recommendations As Tolerated,Crushed in Carrier Additional Dietary Needs 1:1 Supervision,1:1 Assistance Aspiration Precautions Recommended Precautions Upright at 90 Degrees, Alternate Liquids/Solids, Frequent Rest Periods,Small Bites/Sips,Liquids from Spoon Treatment Plan Placement Recommendation after Discharge [facility]-Way Facility, Inpatient Rehab Facility Appropriate for Continued Therapy Yes Therapy Recommendations Will continue to follow up daily to assess clinical improvements, advancement of PO diet, and completion of MBSS. Referrals/Other Recommended Referrals Dietary Consult
[2024-09-16] MEDS: SODIUM CHLORIDE 0.9% 1,000 ML 42 ML IV (16:19)
[2024-09-16] MEDS: FAT EMULSIONS 50 GM/250 ML EMULSION IV (17:22)
[2024-09-16] MEDS: AA 5 %/CALCIUM/LYTES/DEXT 20 % 1,000 ML with MULTIVITAMIN 10 ML, TRACE ELEMENTS 1 ML, F... 43.083 ML IV (17:22)
[2024-09-17] VITALS: BP 139/53; PULSE 73; RESP 18; TEMP 36.7; O2SAT 96
[2024-09-17] MEDS: INSULIN LISPRO 100 UNIT/ML 3ML VIAL SUBCUT ×3 (00:15→18:26)
[2024-09-17 04:00] VITALS: BP 140/59; PULSE 77; RESP 18; TEMP 36.1; O2SAT 96
[2024-09-17 06:08] LABS: Alanine Aminotransferase 11 IU/L (<35); Albumin 2.8 g/dL (3.5-5.0); Alkaline Phosphatase 57 U/L (38-126); Aspartate Aminotransferase 19 IU/L (14-36); BUN Creatinine Ratio 25.9 (6-22); Bilirubin Total 0.3 mg/dL (0.2-1.3); Blood Urea Nitrogen 15 mg/dL (7-17); Calcium 7.6 mg/dL (8.4-10.2); Carbon Dioxide 27 mmol/L (22-32); Chloride 99 mmol/L (98-107); Estimated Glomerular Filt Rate > 60 mL/min (>60); Globulin 2.9 g/dL (1.7-4.1); Glucose 180 mg/dL (80-110); HEMOLYSIS < 15 (0-50); Magnesium 1.8 mg/dL (1.6-2.3); Phosphorous 3.6 mg/dL (2.8-4.1); Potassium 4.4 mmol/L (3.4-5.1); Sodium 128 mmol/L (137-145); Total Protein 5.7 g/dL (6.3-8.2)
[2024-09-17] MEDS: levETIRAcetam 500 MG in SODIUM CHLORIDE 0.9% 100 ML 420 MG IV ×2 (06:51→18:35)
--- NOTE | 2024-09-17 07:51 | PM.PN.1 ---
Subjective Subjective Interval history: Summary: This is a 79-year-old female with cognitive impairment to was off thyroid medication for a year. We are treating her for possible myxedema to see if her mental status and general function improve. She is currently on TPN. She was developed hyponatremia. We need to have a family conference with all involved to see if we can try enteral feeding. Subjective: Awake, non-verbal. Tracking. Exam Vital Signs (past 8 hours): - 09/17/24 00:00 09/17/24 04:00 Temperature 98.0 F 97.0 F L Pulse Rate 73 77 Respiratory Rate 18 18 Blood Pressure 139/53 L 140/59 L Pulse Oximetry 96 96 Oxygen Flow Rate 0 0 Fraction of Inspired Oxygen 28 SaO2/FiO2 Ratio 339 Oxygen Delivery Method Room Air Oxygen Flow Rate 0 Narrative Exam Narrative: NAD, awake. Cachectic. Lungs are clear, normal rate and effort. Heart is regular, no murmur gallop or rub. Abdomen is soft, non distended. Extremities are free of edema. Objective Labs 09/16/24 04:37 09/17/24 04:45 Labs: Laboratory Results - last 24 hr 09/17/24 04:45 Sodium 128 L Potassium 4.4 Chloride 99 Carbon Dioxide 27 BUN 15 Creatinine 0.58 Estimated GFR > 60 BUN/Creatinine Ratio 25.9 H Glucose 180 H Calcium 7.6 L Phosphorus 3.6 Magnesium 1.8 Total Bilirubin 0.3 AST 19 ALT 11 Alkaline Phosphatase 57 Total Protein 5.7 L Albumin 2.8 L Globulin 2.9 Albumin/Globulin Ratio 1.0 [facility] Medical History Carotid artery disease Cerebrovascular accident (CVA) Hypothyroidism Hyperlipidemia Hypertension Seizure Social History marital status: unmarried,single number of children: 9 household members: family lives independently: No caregiver/support person: Yes Smoking Status: Former smoker alcohol intake: current substance use type: does not use Assessment & Plan Assessment & Plan narrative: 1. Sepsis with acute hypoxic respiratory failure, acute metabolic encephalopathy, hypotension due to aspiration pneumonia. Present on admission and improved. -high risk for recurrent aspiration. She remains NPO at this point. 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 -tested positive for rhinovirus. 2. Acute hypoxic respiratory failure, present on admission and resolved. 3. Aspiration pneumonia, present on admission and improving. 4. Possible myxedema, present on admission and active. 5. Cognitive impairment, dementia versus possible myxedema coma, severe hypothyroidism - TSH 208 on admission, undetectable free t4 on 09/08. With encephalopathy, hypotension, hyponatremia on presentation at 129 continued to treat as myxedema coma 6. Rhinovirus, resolving. 7. New dx of DM2, stable. -No known history of diabetes. Blood sugar was 224 on arrival. Placed on fingersticks and sliding scale. Will place on a controlled carb diet once she is safely able to take oral intake. A1c was 7.5%. 8. Transaminitis, resolved. -resolved on repeat testing. 9. Elevated D-dimer -No evidence of PE on CT pulmonary angiogram. Likely elevated secondary to acute pulmonary infection. 10. Anemia, stable. -Hemoglobin is 10.9 which appears consistent with baseline. 11. Left lung focal infiltrate versus mass, stable. -This should be followed up for resolution. She does have a longstanding history of tobacco dependence. 12. Cerebrovascular disease, stable. 13. History of seizure, stable. - continue IV keppra 14. Hypertension, stable. 157/73. - hold home BP medications until improved. PLAN: -continue thyroid supplementation and TPN and monitor mental status. -we will discuss the possibility of an NG tube and enteral feeding with the family. -NPO due to high risk of aspiration. -TPN support. -Family meeting later today to discuss issues and prognosis. Code status Full per granddaughter who is her proxy Prophylaxis Lovenox daily. Time-Based Coding :: [TOTAL MINUTES] spent with patient and on the chart (including review of chart, obtaining history, exam, reviewing outside data, placing orders, documenting exam and treatment plan, and counseling patient) on [DATE].
[2024-09-17 08:00] VITALS: BP 160/71; PULSE 75; RESP 16; TEMP 36.3; O2SAT 96
[2024-09-17] MEDS: SODIUM CHLORIDE 0.9% FLUSH 10 ML IV ×2 (09:18→20:58)
[2024-09-17] MEDS: ENOXAPARIN 40 MG/0.4 ML SYRINGE SUBCUT (09:18)
--- NOTE | 2024-09-17 11:29 | ST.IPDYTX ---
Visit Care Team Role Provider Type Dionne Murguia DO Emergency Provider Physician Referring Provider Specialty: Emergency Medicine Address: [address] [place] [address], [address] Email: [email or web address] Admit Provider Physician Attending Provider Specialty: Family Practice Address: [address] [place] [address], [address] Phone: Fax: Email: [email or web address] Dysphagia Treatment HEALTHCARE SOCIAL WORKER Dysphagia Treatment Start: 09/10/24 10:40 Freq: Status: Active Protocol: Document 09/17/24 10:58 SS (Rec: 09/17/24 11:12 SS [id number]) Dysphagia Treatment Session Time Visit Start Time 10:35 Visit Stop Time 10:55 Total Visit Minutes 20 Visit Information Visit Number 7 Setting Assessment Location Acute Care Visit Type Note Type Treatment Note Next Note Type Next Note Type Treatment Note Patient Information Identification Type Name,ID Wristband Subjective Observations Pt awake upon HEALTHCARE SOCIAL WORKER arrival. Adjusted bed positioning for pt to sit fully upright during PO trials. RN consulted and reported s/sx of aspiration re : coughing with PO diet. Pt continued to be primarily nonverbal. She verbalized no x3 when head of bed was raised and when trials of puree were offered. Treatment Liquids Trialed Thin (IDDSI 0) Administration Type Tea Spoon,Dependent Feeding Oral Strategies Upright at 90 degrees, Controlled Bite/Sip Size Pharyngeal Strategies Sitting Upright (90 deg),Small Bites and Sips Treatment Activities Therapeutic PO trials of thin liquids (water) via tsp with assessment for s/sx of penetration/aspiration and tolerance of current PO diet. The IDDSI Framework Protocol: IDDSI.1 Assessment Patient Response to Treatment Poor Rehab Potential Poor Assessment of middle school volleyball coach consulted and chart reviewed prior to treatment session. TPN and IV fluids continue. Pt on RA with difficulty tolerating upright positioning during trials, grimacing, and verbalizing no multiple times. Weak wet cough at baseline prior to initiation of PO trials. The following PO trials were presented: thin liquid (water) , and puree (apple sauce). Oral phase was characterized by slow bolus manipulation and appeared disorganized. Pt demonstrated good oral acceptance on thin liquids. Attempted puree texture, though pt kept mouth closed and did not accept bolus. Anterior loss of thin liquids noted, bolus holding, and extended AP transport with suspected premature spillage. Pharyngeal phase cannot be assessed objectively at bedside though subjectively appeared effortful and pt required 2-3 swallows per bolus. Pt with suspected delay in swallow initiation with all trials. She demonstrated audible swallow reflex. Pt demonstrated clear vocal quality immediately after swallows and inconsistent overt s/sx of aspiration/ penetration immediately after swallow re: coughing. Pt continues to present with indications of severe oropharyngeal dysphagia and aspiration risk is judged to be high. Risk for development of aspiration pneumonia appears high given combination of poor oral health, compromised immune system/ health status, dependence on others for feeding, dependence on others for oral care, multiple medical diagnoses, and number of medications. Pt does not appear safe for a PO diet at this time and NPO status is recommended. Continue oral care protocol TID. Will continue to follow up. Given that no clinical improvements have been made since initiation of treatment, recommend goals of care be discussed with family. RN and MD notified of recommendations at this time and verbalized understanding. Recommendations Diet Order NPO Medication Recommendations Not Recommended by Mouth Treatment Plan Placement Recommendation after Discharge Residential Care Facility,Home with Hospice,Palliative Care Appropriate for Continued Therapy Yes Therapy Recommendations Will continue to follow up daily to assess clinical improvements.
--- NOTE | 2024-09-17 12:11 | CM.DPC ---
DCP Cont. Reviewed EMR and team rounds for status updates. Called pt's granddaughter, Karley, and requested that the family come to the hospital today to meet with Dr. Mon and discuss OP goals of care, she is close to being ready for d/c. Karley's mother/pt's dtr will plan to be here at 5:00pm to meet with him and discuss their goals for d/c and cont. nutrition/feeding plan for OP. Will continue to monitor for outcome.
[2024-09-17] MEDS: LEVOTHYROXINE INJ 100 MCG/5 ML VIAL 400 MCG IV (15:15)
[2024-09-17] MEDS: AA 5 %/CALCIUM/LYTES/DEXT 20 % 1,000 ML with MULTIVITAMIN 10 ML, TRACE ELEMENTS 1 ML, F... 43.083 ML IV (16:35)
[2024-09-17 21:00] VITALS: BP 168/67; PULSE 84; RESP 19; TEMP 36.4; O2SAT 93
[2024-09-18 05:50] LABS: BUN Creatinine Ratio 22.8 (6-22); Blood Urea Nitrogen 13 mg/dL (7-17); Calcium 8.6 mg/dL (8.4-10.2); Carbon Dioxide 27 mmol/L (22-32); Chloride 97 mmol/L (98-107); Estimated Glomerular Filt Rate > 60 mL/min (>60); Glucose 212 mg/dL (80-110); HEMOLYSIS < 15 (0-50); Magnesium 1.5 mg/dL (1.6-2.3); Phosphorous 4.1 mg/dL (2.8-4.1); Potassium 4.5 mmol/L (3.4-5.1); Sodium 130 mmol/L (137-145)
[2024-09-18] MEDS: levETIRAcetam 500 MG in SODIUM CHLORIDE 0.9% 100 ML 420 MG IV ×2 (06:21→18:46)
[2024-09-18] MEDS: INSULIN LISPRO 100 UNIT/ML 3ML VIAL SUBCUT ×3 (06:23→18:15)
[2024-09-18] MEDS: ENOXAPARIN 40 MG/0.4 ML SYRINGE SUBCUT (07:43)
[2024-09-18 09:00] VITALS: RESP 18
--- NOTE | 2024-09-18 09:19 | PM.PN.1 ---
Subjective Subjective Interval history: Summary: This is a 79-year-old female with cognitive impairment to was off thyroid medication for a year. We are treating her for possible myxedema to see if her mental status and general function improve. She is currently on TPN. She was developed hyponatremia. She was an ongoing cough from her viral syndrome. I met with the family in the late afternoon of September 17. This included the daughter and son. They did voice that she would not want a PEG but they are open to the idea of a very short term NG tube with enteral feeding to give her a couple of more days to see if she improves. Subjective: She was nonverbal but no acute distress and does have an intermittent cough. Exam Vital Signs (past 8 hours): Fraction of Inspired Oxygen 28 SaO2/FiO2 Ratio 339 Oxygen Delivery Method Room Air Oxygen Flow Rate 0 Narrative Exam Narrative: NAD, asleep. Cachectic. Lungs are clear, normal rate and effort. Heart is regular, no murmur gallop or rub. Abdomen is soft, non distended. Extremities are free of edema. Objective Labs 09/16/24 04:37 09/18/24 05:12 Labs: Laboratory Results - last 24 hr 09/18/24 05:12 Sodium 130 L Potassium 4.5 Chloride 97 L Carbon Dioxide 27 BUN 13 Creatinine 0.57 Estimated GFR > 60 BUN/Creatinine Ratio 22.8 H Glucose 212 H Calcium 8.6 Phosphorus 4.1 Magnesium 1.5 L PFSH Medical History Carotid artery disease Cerebrovascular accident (CVA) Hypothyroidism Hyperlipidemia Hypertension Seizure Social History marital status: unmarried,single number of children: 9 household members: family lives independently: No caregiver/support person: Yes Smoking Status: Former smoker alcohol intake: current substance use type: does not use Assessment & Plan Assessment & Plan narrative: 1. Sepsis with acute hypoxic respiratory failure, acute metabolic encephalopathy, hypotension due to aspiration pneumonia and Rhinovirus. Present on admission and improved. 2. Acute hypoxic respiratory failure, present on admission and resolved. 3. Aspiration pneumonia and Rhinovirus, present on admission and improving. 4. Myxedema, present on admission and active. 5. Cognitive impairment, dementia versus possible myxedema coma, severe hypothyroidism 6. Rhinovirus, resolving. 7. New dx of DM2, stable. 8. Transaminitis, resolved. 9. Elevated D-dimer -No evidence of PE on CT pulmonary angiogram. Likely elevated secondary to acute pulmonary infection. 10. Anemia, stable. -Hemoglobin is 10.9 which appears consistent with baseline. 11. Left lung focal infiltrate versus mass, stable. -This should be followed up for resolution. She does have a longstanding history of tobacco dependence. 12. Cerebrovascular disease, stable. 13. History of seizure, stable. - continue IV keppra 14. Hypertension, stable. 157/73. - hold home BP medications until improved. PLAN: -NPO per speech. -trial NG tube today. Enteral feedings. -transitioned from TPN to enteral feedings. -completed antibiotics previously. The family indicates that they would like to give this 2 more days or so. Regardless of improvement or no improvement they do want to get her home likely towards the end of this week. Time-Based Coding :: [TOTAL MINUTES] spent with patient and on the chart (including review of chart, obtaining history, exam, reviewing outside data, placing orders, documenting exam and treatment plan, and counseling patient) on [DATE].
--- NOTE | 2024-09-18 10:11 | DIET.PN1 ---
Addendum entered by Mariya Ferguson 09/18/24 11:54: Spoke to RN - unable to place NG tube x3 attempts. Will d/c tube feed order. Spoke to pharmacy- d/t unable to proceed with enteral feeds, increase TPN to 1.5 with lipids 2x/week to best meet estimated energy needs. This provides 1463 kcals and 75 g protein. Original Note: Dietary Progress Note Assessment: Per hospitalist in team rounds, will do temporary NG tube and start enteral nutrition. Not within GOC to do PEG. Will run TPN at 1 L tonight while transitioning to enteral feeds. If enteral feeds tolerated, can wean TPN tomorrow. Advancement of enteral feeds today + TPN at 1 L is still within estimated energy needs. Ht: 144.78 cm Wt: 50.349 kg BMI: 24.0 Last BM: 09/13/24 (09/13/24 18:00) MNA: 11 Chepe Score: 13 Diet: 09/17/24 10:58 NPO Diet Diet Modifications: NPO Type: NPO except for Ice Chips Nutrition Percent Meal Consumed pt is NPO 09/16/24 18:00 Labs: RBC 2.70 X10^6/uL (4.0-5.2) L 09/16/24 04:37 Hgb 8.9 g/dL (12.0-16.0) L 09/16/24 04:37 Hct 24.7 % (36-46) L 09/16/24 04:37 Creatinine 0.57 mg/dL (0.52-1.04) 09/18/24 05:12 Hemoglobin A1c 7.5 % (4.0-6.0) H 09/08/24 03:45 Lactate 1.6 mmol/L (0.7-2.1) 09/08/24 03:45 NT-Pro-B Natriuret Pep 347 pg/mL (<450) 09/08/24 03:45 Nutrition Diagnosis: Inadequate oral intake r/t unable to safely consume adequate nutrition orally aeb NPO status per 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 Recc continuous enteral nutrition of Glucerna 1.5 starting at 10 mL/hr and advancing as tolerated by 10 mL Q8H until goal rate of 40 mL/hr. Flush 90 mL Q4H. Feeds + flush meets fluid needs (25 mL/kg per age). Goal rate provides 1440 kcals and 79 g protein meeting 100% of EER. EER: 3858-8008 kcals/kg (25-30 kcals/kg per BMI) 65-75 g protein (1.25-1.5 g/kg per sepsis) Monitoring/Evaluations: TF tolerance, BG Electronically Signed by: Mariya Ferguson 09/18/24 10:11 Clinical Dietitian [address] [address]
--- NOTE | 2024-09-18 10:38 | SLP.IPNOTE ---
Patient not seen this date by d/t and Nsg reporting Pt plan to have an NG tube placed this date and conversation with family going forward regarding d/c plan. ST to keep Pt on therapy to monitor if she becomes appropriate for PO trials.
--- NOTE | 2024-09-18 11:18 | CM.DPC ---
DCP Cont. Reviewed EMR and team rounds for status updates. Per Hospitalist/Dr. Mon, he met with pt's dtr and granddaughter yesterday afternoon to discuss goals of care and next steps forward. They agreed to do a 2-day trial on NG tube feedings, but her wishes are no PEG feeding tube. She will d/c home after 2-more days, if the feeds pass through her appropriately, the plan will be home with NG feeding, otherwise, the plan will be home w/hospice.
--- NOTE | 2024-09-18 11:26 | PC.NURSE ---
Addendum entered by Mirta Young R.N. 09/18/24 18:23: Condition remains essentially unchanged TPN continues as per orders Repositioned frequently. COntinue w/plan of care. Original Note: Pt awake, answers yes/no questions Repositioned in bed frequently. Order for placement of NG tube; 3 attempts made w/ no success. MD aware TPN continues, NS @ 42 continues into MAXINE PICC Pt resting at this time. Call light w/in reach, bed alarm on for pt safety. Continue w/plan of care.
[2024-09-18] MEDS: SODIUM CHLORIDE 0.9% FLUSH 10 ML IV ×2 (11:47→21:25)
[2024-09-18] MEDS: MAGNESIUM SULFATE 2 GM/50 ML PIGGYBACK IV (11:48)
[2024-09-18] MEDS: AA 5 %/CALCIUM/LYTES/DEXT 20 % 1,500 ML with MULTIVITAMIN 10 ML, TRACE ELEMENTS 1 ML, F... 63.875 ML IV (16:29)
[2024-09-18] MEDS: SODIUM CHLORIDE 0.9% 1,000 ML 42 ML IV (16:44)
[2024-09-18 20:00] VITALS: BP 160/86; PULSE 89; RESP 19; TEMP 36.6; O2SAT 94
[2024-09-19] MEDS: INSULIN LISPRO 100 UNIT/ML 3ML VIAL SUBCUT (01:42)
[2024-09-19] MEDS: levETIRAcetam 500 MG in SODIUM CHLORIDE 0.9% 100 ML 420 MG IV ×2 (07:00→19:36)
--- NOTE | 2024-09-19 07:28 | PM.PN.1 ---
Subjective Subjective Interval history: S: Awake, nonverbal. Exam Vital Signs (past 8 hours): Fraction of Inspired Oxygen 28 SaO2/FiO2 Ratio 339 Oxygen Delivery Method Room Air Oxygen Flow Rate 0 Narrative Exam Narrative: NAD, awake and nonverbal. Less coughing. Lungs are clear, normal rate and effort. Heart is regular, no murmur gallop or rub. Abdomen is soft, non distended. Extremities are free of edema. Objective Labs 09/16/24 04:37 09/18/24 05:12 [facility] Medical History Carotid artery disease Cerebrovascular accident (CVA) Hypothyroidism Hyperlipidemia Hypertension Seizure Social History marital status: unmarried,single number of children: 9 household members: family lives independently: No caregiver/support person: Yes Smoking Status: Former smoker alcohol intake: current substance use type: does not use Assessment & Plan Assessment & Plan narrative: . Sepsis with acute hypoxic respiratory failure, acute metabolic encephalopathy, hypotension due to aspiration pneumonia and Rhinovirus. Present on admission and improved. 2. Acute hypoxic respiratory failure, present on admission and resolved. 3. Aspiration pneumonia and Rhinovirus, present on admission and improving. 4. Myxedema, present on admission and active. 5. Cognitive impairment, dementia versus possible myxedema coma, severe hypothyroidism 6. Rhinovirus, resolving. 7. New dx of DM2, stable. 8. Transaminitis, resolved. 9. Elevated D-dimer -No evidence of PE on CT pulmonary angiogram. Likely elevated secondary to acute pulmonary infection. 10. Anemia, stable. -Hemoglobin is 10.9 which appears consistent with baseline. 11. Left lung focal infiltrate versus mass, stable. -This should be followed up for resolution. She does have a longstanding history of tobacco dependence. 12. Cerebrovascular disease, stable. 13. History of seizure, stable. - continue IV keppra 14. Hypertension, stable. 157/73. - hold home BP medications until improved. PLAN: -she failed her NG tube attempt yesterday. The daughter makes it clear That she would not want a PEG. -I called the daughter and recommended that they take her home tomorrow, September 20 and try medications with applesauce knowing that she was at high risk for aspiration. -I also recommended consideration of hospice, they are open to an informational and this is being arranged. CLAY: 09/20 Time-Based Coding :: [TOTAL MINUTES] spent with patient and on the chart (including review of chart, obtaining history, exam, reviewing outside data, placing orders, documenting exam and treatment plan, and counseling patient) on [DATE].
[2024-09-19 08:00] VITALS: BP 142/61; PULSE 75; RESP 17; TEMP 36.4; O2SAT 96
[2024-09-19] MEDS: ENOXAPARIN 40 MG/0.4 ML SYRINGE SUBCUT (09:38)
[2024-09-19] MEDS: SODIUM CHLORIDE 0.9% FLUSH 10 ML IV ×2 (09:43→21:56)
--- NOTE | 2024-09-19 11:14 | DIET.PN1 ---
Dietary Progress Note Assessment: Pt continues on goal rate of 1.5 L TPN and lipids 2x/wk. Per pharmacy, labs ordered today. Ht: 144.78 cm Wt: 50.349 kg BMI: 24.0 Last BM: 09/13/24 (09/13/24 18:00) MNA: 11 Chepe Score: 13 Diet: 09/17/24 10:58 NPO Diet Diet Modifications: NPO Type: NPO except for Ice Chips Nutrition Percent Meal Consumed NPO 09/18/24 18:00 Labs: RBC 2.70 X10^6/uL (4.0-5.2) L 09/16/24 04:37 Hgb 8.9 g/dL (12.0-16.0) L 09/16/24 04:37 Hct 24.7 % (36-46) L 09/16/24 04:37 Creatinine 0.57 mg/dL (0.52-1.04) 09/18/24 05:12 Hemoglobin A1c 7.5 % (4.0-6.0) H 09/08/24 03:45 Lactate 1.6 mmol/L (0.7-2.1) 09/08/24 03:45 NT-Pro-B Natriuret Pep 347 pg/mL (<450) 09/08/24 03:45 Electronically Signed by: Mariya Ferguson 09/19/24 11:14 Clinical Dietitian [address] [address]
--- NOTE | 2024-09-19 12:37 | ST.IPDYTX ---
Visit Care Team Role Provider Type Dionne Murguia DO Emergency Provider Physician Referring Provider Specialty: Emergency Medicine Address: [address] [place] [address], [address] Email: [email or web address] Admit Provider Physician Attending Provider Specialty: Family Practice Address: [address] [place] [address], [address] Phone: Fax: Email: [email or web address]ER Dysphagia Treatment [employer]INEER Dysphagia Treatment Start: 09/10/24 10:40 Freq: Status: Active Protocol: Document 09/19/24 12:21 MA (Rec: 09/19/24 12:37 MA [id number]) Dysphagia Treatment Session Time Visit Start Time 12:00 Visit Stop Time 12:20 Total Visit Minutes 20 Visit Information Visit Number 8 Setting Assessment Location Acute Care Visit Type Note Type Treatment Note Next Note Type Next Note Type Treatment Note Patient Information Identification Type Name,ID Wristband Subjective Observations Pt 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 Adjusted bed positioning for pt to sit fully upright during PO trials. RN reports NG tube placement yesterday was unsuccessful. Pt continued to be primarily nonverbal. She shook her head x2 and waved head to indicate no more PO trials. Treatment Liquids Trialed Thin (IDDSI 0) Solids Trialed Purred (IDDSI 4) Administration Type Tea Spoon,Dependent Feeding Oral Strategies Upright at 90 degrees, Controlled Bite/Sip Size Pharyngeal Strategies Sitting Upright (90 deg),Small Bites and Sips Treatment Activities Therapeutic PO trials of thin liquids (water) via tsp and puree solids with assessment for s/sx of penetration/ aspiration and tolerance of current PO diet. The IDDSI Framework Protocol: IDDSI.1 Assessment Patient Response to Treatment Poor Rehab Potential Poor Assessment of Improvement TPN and IV fluids continue. Pt on room air. Weak wet cough at baseline prior to initiation of PO trials. The following PO trials were presented: thin liquid (water) via cup, and puree (apple sauce/pudding). Oral phase was characterized by slow bolus manipulation and appeared disorganized. Pt able to drink from cup when presented. Pt demonstrated good oral acceptance on thin liquids. Pt with limited PO trials of puree, characterized by Pt shaking head no when presented with next bolus and shaking hand. Mild Bolus holding, and extended AP transport with suspected premature spillage. Pharyngeal phase cannot be assessed objectively at bedside though subjectively appeared effortful and pt required 2-3 swallows per bolus. Pt with suspected delay in swallow initiation with all trials. She demonstrated audible swallow reflex with increase in chest congestion. Pt with inconsistent overt s/ sx of aspiration/penetration immediately after swallow with thin liquids re: coughing and delayed cough x1. Pt continues to present with indications of severe oropharyngeal dysphagia and aspiration risk is judged to be high. Risk for development of aspiration pneumonia appears high given combination of poor oral health, compromised immune system/ health status, dependence on others for feeding, dependence on others for oral care, multiple medical diagnoses, and number of medications. Pt does not appear safe for a PO diet at this time, however ST recommends pleasure feeds of puree and thin liquids with safe swallowing strategies in place such as: slow rate, small bites, 100% supervision and feed assist and strict oral care before/after meals. Discontinue feedinig if coughing or change in respiratory/medical status occur. Will continue to follow up. RN and MD notified of recommendations at this time and verbalized understanding. Recommendations Diet Order NPO Medication Recommendations Not Recommended by Mouth Comments Pleasure feeds of puree and thin liquids Additional Dietary Needs 1:1 Supervision,1:1 Assistance Aspiration Precautions Recommended Precautions Upright at 90 Degrees, Alternate Liquids/Solids, Frequent Rest Periods,Small Bites/Sips,Liquids from Spoon Treatment Plan Placement Recommendation after Discharge Longterm Care Facility,Home with Hospice,Palliative Care Appropriate for Continued Therapy Yes Therapy Recommendations Will continue to follow up daily to assess clinical improvements. Referrals/Other Recommended Referrals Dietary Consult
--- NOTE | 2024-09-19 13:26 | CM.DPC ---
DCP Cont. Reviewed EMR and team rounds for status updates. Dr. Mon had a conversation with pt's family re: her inability to have success with the NG trial feedings. Goals of care discussion resulting in family wanting pt to d/c home tomorrow, and requested an OP [facility] info visit after d/c. Sent referral to [facility] for info visit request. No further needs indicated at this time.
[2024-09-19 13:59] LABS: Alanine Aminotransferase 10 IU/L (<35); Albumin 3.1 g/dL (3.5-5.0); Alkaline Phosphatase 60 U/L (38-126); Aspartate Aminotransferase 20 IU/L (14-36); BUN Creatinine Ratio 33.3 (6-22); Bilirubin Total 0.4 mg/dL (0.2-1.3); Blood Urea Nitrogen 18 mg/dL (7-17); Carbon Dioxide 25 mmol/L (22-32); Chloride 99 mmol/L (98-107); Estimated Glomerular Filt Rate > 60 mL/min (>60); Glucose 196 mg/dL (80-110); HEMOLYSIS < 15 (0-50); Magnesium 2.1 mg/dL (1.6-2.3); Potassium 4.6 mmol/L (3.4-5.1); Sodium 128 mmol/L (137-145); Total Protein 6.1 g/dL (6.3-8.2); Triglycerides 51 mg/dL (35-150)
[2024-09-19] MEDS: AA 5 %/CALCIUM/LYTES/DEXT 20 % 1,500 ML with MULTIVITAMIN 10 ML, TRACE ELEMENTS 1 ML, F... 63.875 ML IV (17:24)
[2024-09-19] MEDS: FAT EMULSIONS 50 GM/250 ML EMULSION IV (17:25)
--- NOTE | 2024-09-19 18:23 | PC.NURSE ---
Pt alert, answering yes/no questions. Repositioned frequently. TPN & lipids infusing as per orders. CBG 197 Family in to visit Call light w/in reach, bed alarm on for pt safety. Continue w/plan of care.
[2024-09-19] MEDS: DEXTROSE 5% IV (18:31)
[2024-09-19] MEDS: TRACE ELEMENTS IV (18:31)
[2024-09-19] MEDS: AMINO ACIDS IV (18:31)
[2024-09-19] MEDS: MULTIVITAMIN IV (18:31)
[2024-09-19] MEDS: [UNRECOGNIZED DRUG - OTHER] IV (18:31)
[2024-09-19 20:00] VITALS: BP 143/58; PULSE 72; RESP 18; TEMP 36.1; O2SAT 96
--- NOTE | 2024-09-20 00:53 | PC.NURSE ---
Patient very confused, only answers Yes to questions, pulled out her PICC line. The plan is for patient to DC home with family and hospice later today. Dr Rees notified and orders received to leave PICC out and DC the IV meds including the TPN and ABX.
--- NOTE | 2024-09-20 07:43 | PC.NURSE ---
Patient had TPN infusing when pt pulled out PICC. This RN charted that the TPN was stopped at midnight. However, there were two entries in emar for TPN, the first one being at 1724, then another one at 1831. This RN only stopped the one at 1834, however I can't unchart stopping one that was supposedly hung at 1724.
[2024-09-20 08:00] VITALS: BP 142/62; PULSE 75; RESP 16; TEMP 36.5; O2SAT 97
[2024-09-20 09:56] LABS: BUN Creatinine Ratio 23.3 (6-22); Blood Urea Nitrogen 14 mg/dL (7-17); Calcium 8.3 mg/dL (8.4-10.2); Carbon Dioxide 27 mmol/L (22-32); Chloride 99 mmol/L (98-107); Estimated Glomerular Filt Rate > 60 mL/min (>60); Glucose 128 mg/dL (80-110); HEMOLYSIS < 15 (0-50); Potassium 4.8 mmol/L (3.4-5.1); Sodium 130 mmol/L (137-145)
[2024-09-20 10:08] LABS: Magnesium 1.9 mg/dL (1.6-2.3); Phosphorous 4.2 mg/dL (2.8-4.1)
[2024-09-20] MEDS: ENOXAPARIN 40 MG/0.4 ML SYRINGE SUBCUT (10:37)
--- NOTE | 2024-09-20 10:49 | PM.DS.1 ---
History of Present Illness History of Present Illness Chief complaint: Resp. distress Narrative: From H&P: 79-year-old female with hypertension, hyperlipidemia, hypothyroidism, cerebrovascular disease with prior left MCA stroke, history of seizure in August 2023 secondary to old stroke, bilateral carotid artery disease, coronary artery disease status post prior CABG, history of tobacco dependence, probable vascular dementia who presented to the emergency department with cough and breathing difficulties. History is obtained from the patient's daughter as the patient is unable to provide any history. Patient's daughter notes that she moved the patient here from [place] 2 years ago. Prior to that she was living with her son. Daughter notes that she and the patient sleep in the same room together. Patient and the daughter's fiance have both been struggling with a cough and sore throat over the past several days. They have also both complained of headaches. At approximately 2:00 a.m. this morning, the patient began coughing very hard and seemed to be struggling to breathe. The patient's daughter subsequently called EMS and had the patient transferred to the emergency department. On arrival to the emergency department, patient had O2 saturations of 79% in room air. She was placed on BiPAP, given 20 mg of IV Lasix, 0.4 mg of sublingual nitroglycerin. Chest x-ray showed no acute cardiopulmonary process. Labs revealed a normal white blood cell count at 9.9, hemoglobin 10.9, platelets 268. D-dimer was 2199. ABG revealed a pH of 7.32, pCO2 54, bicarb 29 on BiPAP. Sodium was 135, glucose 224. AST was elevated at 78, ALT elevated at 46. Troponin was less than 0.012 and remain negative on repeat. Respiratory viral panel was positive for entero/rhino virus. BNP was normal at 347. CT pulmonary angiogram was subsequently performed and revealed no evidence of pulmonary embolism. There was a small right-sided pleural effusion. There was mild dependent consolidation in both lungs. There was a focal consolidation in the left posterior lung including pleural calcification. Atelectasis was felt to be most likely, but differential diagnosis includes infectious infiltrate and neoplasm. Furthermore there was a thoracic aortic stent noted and dense coronary artery calcification. While in the emergency department patient was able to be successfully weaned off of the BiPAP on to 5 L nasal cannula. Prior to transfer to the floor, she was weaned to 3 L. After arrival to the medical unit, patient did fall to sleep and subsequently dropped back down into the 70s on 3 L. She required non-rebreather mask to get her saturations back up to the 90s. Time of my evaluation, patient is presently drowsy but cooperative. Currently on 10 liters/minute via face mask. Discharge Providers Provider Date of admission: 09/08/24 07:14 Discharge Date: 09/20/24 Consults: 09/08/24 14:56 Consult to Speech Therapy Evaluate & Treat Comment: Physician Instructions: Evaluate and treat 09/08/24 15:19 Consult to Occupational Therapy Evaluate & Treat Comment: Physician Instructions: Evaluate and treat Consult to Physical Therapy Evaluate & Treat Comment: Physician Instructions: Evaluate and Treat 09/16/24 07:40 Consult to Dietitian, Adult Routine Comment: Reason For Exam: TPN Discharge provider: Butch Mon MD Summary Hospital Course Discharge Diagnosis: 1. Sepsis with acute hypoxic respiratory failure, acute metabolic encephalopathy, hypotension due to aspiration pneumonia and Rhinovirus. Present on admission and improved. 2. Acute hypoxic respiratory failure, present on admission and resolved. 3. Aspiration pneumonia and Rhinovirus, present on admission and improved. 4. Myxedema, present on admission and improved. 5. Cognitive impairment, dementia. Stable. 6. Rhinovirus, resolving. 7. New dx of DM2, stable. 8. Transaminitis, resolved. 9. Elevated D-dimer -No evidence of PE on CT pulmonary angiogram. Likely elevated secondary to acute pulmonary infection. 10. Anemia, stable. -Hemoglobin is 10.9 which appears consistent with baseline. 11. Left lung focal infiltrate versus mass, stable. -This should be followed up for resolution. She does have a longstanding history of tobacco dependence. 12. Cerebrovascular disease, stable. 13. History of seizure, stable. - continue IV keppra 14. Hypertension, stable. 157/73. Hospital Course: The patient was admitted with rhino virus and possible pneumonia and treated with antibiotics. She had very poor swallow and was noted to have evidence of profound hypothyroidism. It was discovered that she was not been on thyroid for some time and the thought that she might be suffering from General myxedema led to a trial of IV thyroid medication and observation. The patient did have some improvement of her mental status but remained quite weak and had a weeds weak swallow. I did discuss level care with the daughter, Ines. She said that the patient would never want a PEG tube. They did agree to a trial of a NG tube, however the patient did not tolerate an attempt at an insertion. The patient was supported with TPN while in the hospital and ultimately it was felt that she would be best served returning to home and attempting to take medications with applesauce, primarily her thyroid medication. Her family was happy with this. We also did discuss hospice and an informational be arranged but it was unclear if they are going to move forward with that or not. Status at Discharge Cognitive/behavioral status at discharge: at baseline, confused Functional status at discharge: wheelchair bound Overall status at discharge: patient is progressing back to baseline Time Spent with Patient Time spent: Greater than 30 minutes Exam Vital Signs (past 8 hours): - 09/20/24 08:00 Temperature 97.7 F Pulse Rate 75 Respiratory Rate 16 Blood Pressure 142/62 H Pulse Oximetry 97 Oxygen Flow Rate 0 Fraction of Inspired Oxygen 28 SaO2/FiO2 Ratio 339 Oxygen Delivery Method Room Air Oxygen Flow Rate 0 Narrative Exam Narrative: NAD, minimally verbal. Lungs are clear, normal rate and effort. Heart is regular, no murmur gallop or rub. Abdomen is soft, non distended. Extremities are free of edema. Objective ECG Impression: Sinus rhythm with occasional premature ventricular complexes and premature atrial complexes ST & T wave abnormality, consider inferolateral ischemia Imaging Multiple studies:: Radiologist's impression: Chest x-ray: The tip of the right-sided PICC line can now be seen overlying the mid aspect of the superior vena cava. Right mid lung consolidation is seen. Atelectasis is suspected, although please consider mild/early infiltrate. Chest CTA: No pulmonary embolus. There is a small right-sided pleural effusion. Mild dependent consolidation can be seen on both sides. There is focal consolidation seen involving the left posterior lung, including pleural calcification. Atelectasis is felt most likely, although differential diagnosis includes infectious infiltrate and neoplasm. Please consider short-term follow-up. Additional findings: Stent seen within the ascending thoracic aorta Dense coronary artery calcification Head CT: No acute intracranial disease process. Echo: The left ventricle is normal in size. The left ventricular ejection fraction is normal. The ejection fraction is estimated to be 55-60%. The right ventricle is moderately dilated. The right ventricular systolic function is normal. There is moderate to severe mitral annular calcification. The mitral valve mean gradient is 3.3 mmHg. There is mild mitral stenosis. There is mild to moderate mitral regurgitation. There is a bioprosthetic aortic valve. The prosthetic aortic valve is well-seated. The peak aortic velocity is 1.63 m/sec. The aortic valve mean gradient is 6 mmHg. There is mild perivalvular regurgitation around the prosthetic aortic valve. Moderate atherosclerotic plaque(s) in the aortic arch. Head and neck CTA: No areas of hemodynamically significant stenosis, vascular occlusion or aneurysmal dilation within the anterior circulation. No areas of hemodynamically significant stenosis, vascular occlusion or aneurysmal dilation within the posterior circulation. 50% left and 60-70% right internal carotid artery stenosis. Labs 09/16/24 04:37 09/20/24 09:35 Labs: Laboratory Results - last 24 hr 09/19/24 09/20/24 13:30 09:35 Sodium 128 L 130 L Potassium 4.6 4.8 Chloride 99 99 Carbon Dioxide 25 27 BUN 18 H 14 Creatinine 0.54 0.60 Estimated GFR > 60 > 60 BUN/Creatinine Ratio 33.3 H 23.3 H Glucose 196 H 128 H Calcium 8.0 L 8.3 L Phosphorus 4.0 4.2 H Magnesium 2.1 1.9 Total Bilirubin 0.4 AST 20 ALT 10 Alkaline Phosphatase 60 Total Protein 6.1 L Albumin 3.1 L Globulin 3.0 Albumin/Globulin Ratio 1.0 Triglycerides 51 PFSH Medical History Carotid artery disease Cerebrovascular accident (CVA) Hypothyroidism Hyperlipidemia Hypertension Seizure Social History marital status: unmarried,single number of children: 9 household members: family lives independently: No caregiver/support person: Yes Smoking Status: Former smoker alcohol intake: current substance use type: does not use Discharge Assessment & Plan Assessment and Plan Assessment: 1. Sepsis with acute hypoxic respiratory failure, acute metabolic encephalopathy, hypotension due to aspiration pneumonia and Rhinovirus. Present on admission and improved. 2. Acute hypoxic respiratory failure, present on admission and resolved. 3. Aspiration pneumonia and Rhinovirus, present on admission and improved. 4. Myxedema, present on admission and improved. 5. Cognitive impairment, dementia. Stable. 6. Rhinovirus, resolving. 7. New dx of DM2, stable. Plan of Treatment: Given her tenuous status and difficulty with swallowing, we will discharge her on her thyroid medication only and close follow up with PCP as well as a hospice informational. If she improves she will likely require reintroduction of blood pressure medication. Hopefully she will not require any diabetes medications. Discharge Plan Discharge Plan Patient Disposition: Home Provider Discharge Comment: Stable for discharge home with care from family and possible hospice. A referral has been sent. Discharge orders & Medications Prescriptions: Continued nitroglycerin 0.4 mg Tablet, Sublingual 0.4 mg SUBLINGUAL Q5-15M PRN (Reason: cp) Rx Instructions: do not exceed 3 doses per episode levothyroxine [Synthroid] 125 mcg tablet 125 mcg PO DAILY Qty: 90 0RF Rx Instructions: take 1 hour before food on an empty stomach Discontinued atorvastatin 40 mg Tablet 40 mg PO BEDTIME Patient Comments: Information from pt's granddaughter aspirin 81 mg Tablet,Delayed Release (Dr/Ec) 81 mg PO DAILY amlodipine 10 mg tablet 10 mg PO DAILY Patient Comments: Information from pt's granddaughter lisinopril 40 mg tablet 40 mg PO DAILY Patient Comments: Information from pt's granddaughter levetiracetam [Keppra] 500 mg Tablet 500 mg PO BID Diet/Activity/Treatments Diet: Diet as Tolerated Visit Report/Discharge Packet Instructions: DI for Heart Failure, DI for Aspiration Pneumonia, DI for Hypothyroidism Stand Alone Forms: Congestive Heart Failure, Patient Portal/API, Stroke Signs & Symptoms
--- NOTE | 2024-09-20 11:50 | CM.DPC ---
DCP Continued: Reviewed EMR and team rounds for pt?s medical status. Per rounds, pt cleared to discharge with family when available. Pt and family refusing to place a PEG tube for nutrition and will continue with pleasure feeds of puree and thin liquids. DCP entered room, met with pt and family (daughter, Ines, and son-in-law). Per family, it is their utmost preference for pt to return home. Daughter requested for this DCP to speak with pt granddaughter, Karley. DCP spoke with [facility], Rosemarie, who reports that they received the clinicals for pt. DCP encouraged Rosemarie to speak with main contact for patient, granddaughterKarley. [facility] to complete informational meeting with family. Discharge orders are in, pt to discharge with family. Family feels comfortable with transporting pt in their POV, state they have all appropriate DME at their home. DCP notified pt RN who verbalized understanding with coordinating discharge with hospitalist. Plan: Pt to discharge home with family when medically cleared, family to follow up with [facility] for additional support. CM Team will continue to follow for coordination of discharge plans. JACOB Johnson
--- NOTE | 2024-09-20 12:15 | PC.NURSE ---
Patient is received lying in bed. This a.m. she is alert not answering questions. Calm expression and doesn't appear to be in discomfort/pain. Rivera in place draining clear yellow urine. Family arrived to bedside requesting to transport patient home today. Per NOC shift RN, patient dc'd her own PICC line. No bleeding from site. She is cleared for discharge home today with family. Family assists patient to transport to w/ and vehicle. She is escorted via w/ by float RN to private vehicle with daughter and son with all of her belongings for discharge home today at approximately 1140 a.m.
== END 2024-09-20 11:40 | disposition home or self-care (01) | DRG 871 ==
LOC: ED 06:36 → AC 07:15 → ICU 09:45 → AC 09-12 13:38
PROVIDERS: Internal Medicine; Admitting Provider Family Medicine; Emergency Provider Emergency Medicine; Referring Provider Emergency Medicine; Visit Provider Family Medicine
DX: A41.9 Sepsis, unspecified organism (principal); E03.5 Myxedema coma; G93.41 Metabolic encephalopathy; J96.01 Acute respiratory failure with hypoxia; J69.0 Pneumonitis due to inhalation of food and vomit; J18.9 Pneumonia, unspecified organism; J90 Pleural effusion, not elsewhere classified; J98.11 Atelectasis; E87.1 Hypo-osmolality and hyponatremia; I25.10 Atherosclerotic heart disease of native coronary artery without angina pectoris; B34.8 Other viral infections of unspecified site; R74.01 Elevation of levels of liver transaminase levels; D64.9 Anemia, unspecified; E03.9 Hypothyroidism, unspecified; I10 Essential (primary) hypertension; I77.9 Disorder of arteries and arterioles, unspecified; R65.20 Severe sepsis without septic shock; E11.65 Type 2 diabetes mellitus with hyperglycemia; R91.8 Other nonspecific abnormal finding of lung field; I95.9 Hypotension, unspecified; I69.398 Other sequelae of cerebral infarction; F03.90 Unspecified dementia, unspecified severity, without behavioral disturbance, psychotic disturbance, mood disturbance, and anxiety; Z95.1 Presence of aortocoronary bypass graft; Z95.828 Presence of other vascular implants and grafts; Z86.69 Personal history of other diseases of the nervous system and sense organs; Z87.891 Personal history of nicotine dependence
CPT/HCPCS: 36415; 36569; 36600; 71045; 71275; 80048; 80053; 82533; 82550; 82805; 82962; 83036; 83605; 83690; 83735; 83880; 84100; 84132; 84145; 84436; 84439; 84443; 84478; 84481; 84484; 85025; 85379; 85610; 85730; 87040; 87633; 92526; 92610; 93005; 93010; 94660; 94762; 96374; 97161; 99285; B4185; B4189; J0696; J1642; J1650; J1720; J1815; J1940; J1953; J3475; J3480; Q9967

== ENCOUNTER → 2025-06-12 11:34 | Outpatient (CLI) | payer MEDICARE, MEDICAID, SELFPAY ==
[2024-09-08 03:30] VITALS: PULSE 94; RESP 33; O2SAT 94
[2024-09-08 09:00] VITALS: BMI 24.0
[2025-06-12 12:38] LABS: Add Manual Diff / Slide Review NO; Hematocrit 30.2 % (36-46); Hemoglobin 10.5 g/dL (12.0-16.0); Lymphocytes Absolute Auto 1600 /uL (1100-4500); Mean Corpuscular HGB Conc 34.7 % (30-36); Mean Corpuscular Hemoglobin 32.2 PG (26-34); Mean Corpuscular Volume 92.7 fL (80-100); Platelet Count 238 X10^3/uL (150-400)
[2025-06-12 12:54] LABS: Alanine Aminotransferase 80 IU/L (<35); Albumin 3.8 g/dL (3.5-5.0); Albumin Globulin Ratio 1.0 (1.0-2.8); Alkaline Phosphatase 163 U/L (38-126); Blood Urea Nitrogen 11 mg/dL (7-17); Calcium 8.3 mg/dL (8.4-10.2); Carbon Dioxide 28 mmol/L (22-32); Chloride 99 mmol/L (98-107); Estimated Glomerular Filt Rate > 60 mL/min (>60); Globulin 3.7 g/dL (1.7-4.1); Glucose 222 mg/dL (70-99); HEMOLYSIS < 15 (0-50); Potassium 3.7 mmol/L (3.4-5.1); Sodium 135 mmol/L (137-145); Total Protein 7.5 g/dL (6.3-8.2)
[2025-06-12 14:06] LABS: TSH w/ Reflex to FT4 194.00 uIU/mL (0.47-4.68)
[2025-06-12 14:30] LABS: Free T4, Direct Thyroxine < 0.07 ng/dL (0.78-2.19)
[2025-06-12 19:31] LABS: Hemoglobin A1C% w Est Avg Glu 6.9 % (4.0-6.0)
== END ==
PROVIDERS: PCP Family Medicine; Referring Provider Family Medicine; Visit Provider Family Medicine
DX: E78.5 Hyperlipidemia, unspecified (principal); R73.9 Hyperglycemia, unspecified; E03.9 Hypothyroidism, unspecified
CPT/HCPCS: 36415; 80053; 83036; 84439; 84443; 85025

== ENCOUNTER 2025-11-20 12:23 | Inpatient (IN) | payer MEDICARE, MEDICAID, SELFPAY ==
[2024-09-08 03:30] VITALS: PULSE 94; RESP 33; O2SAT 94
[2024-09-08 09:00] VITALS: BMI 24.0
[2025-11-20] VITALS (24 sets, daily range): BP systolic 94–142; BP diastolic 49–75; PULSE 97–112; RESP 21–40; TEMP 34.7–37.6; O2SAT 82–100; BMI 18.1
--- NOTE | 2025-11-20 12:27 | ED.GENADULT ---
HPI - General Adult General Chief complaint: Neuro Symptoms/Deficit Stated complaint: Code Stroke Time Seen by Provider: 11/20/25 12:23 History of Present Illness HPI narrative: 80-year-old woman coming from home history of prior stroke with right-sided deficits, hypertension, hyperlipidemia, seizure disorder, hypothyroidism and diabetes was apparently at her baseline last night and reportedly went to bed rather late. Family went to wake her up this morning she was not responding as she usually does. Typically is able to carry on a conversation and this morning say yes and seemed to indicate if she was hurting. Rather than using utensils she was picking at her food with her left hand, medics were called for further evaluation. Family reports that she does have a bed sore on her coccyx and over her shoulder blade. She is brought in with code stroke called, examined on arrival with blood sugar at 218 per medics, taken immediately to CT. Related Data Previous Rx's ?Medication ?Instructions ?Recorded amlodipine 10 mg tablet 10 mg PO DAILY #90 tabs 06/12/25 atorvastatin 40 mg tablet 40 mg PO DAILY #90 tabs 06/12/25 levetiracetam 500 mg tablet 500 mg PO BID #180 tabs 06/12/25 levothyroxine 125 mcg tablet 125 mcg PO DAILY #90 tabs 06/12/25 (Synthroid) lisinopril 40 mg tablet 40 mg PO DAILY #90 tabs 06/12/25 metformin 500 mg tablet 500 mg PO DAILY #30 tabs 10/30/25 Allergies Allergy/AdvReac Type Severity Reaction Status Date / Time No Known Drug Allergies Allergy Verified 06/12/25 11:00 Review of Systems Review of Systems ROS Unobtainable: Unobtainable due to medical condition Patient History Medical History Hypothyroidism Hyperlipidemia Hypertension Seizure Carotid artery disease Cerebrovascular accident (CVA) Social History marital status: unmarried,single number of children: 9 household members: family lives independently: No caregiver/support person: Yes alcohol intake: current substance use type: does not use alcohol intake frequency: holidays/special occasions only Exam Narrative Exam Narrative: General: Frail, chronically ill-appearing no obvious respiratory distress HEENT: Dry mucous membranes, normal sclera with reactive pupils, Respiratory: Lungs are clear to auscultation, shallow effort, no obvious wheeze Cardiac: Tachycardic at 1:30 a.m. Abdomen: Soft, nontender/no pain behaviors with palpation Skin: Quite thin but otherwise Warm and dry, Neurologic: Difficulty responding at all, right-sided upper extremity contracture, right-sided neglect, dysarthria, unclear if she is able to understand any of my questions, unable to follow any commands Extremities: No obvious trauma Psych: Awake, protecting airway but significantly altered NIH Stroke Scale/Score (NIHSS) 11/20/2025 RESULT SUMMARY: 25 points (unable to score ataxia, sensation, visual amaral) NIH Stroke Scale INPUTS: 1A: Level of consciousness ?> 1 = Arouses to minor stimulation 1B: Ask month and age ?> 2 = Aphasic 1C: 'Blink eyes' & 'squeeze hands' ?> 2 = Performs both tasks 2: Horizontal extraocular movements ?> 2 = Forced gaze palsy: cannot be overcome 3: Visual amaral ?> 0 = No visual loss 4: Facial palsy ?> 2 = Partial paralysis (lower face) 5A: Left arm motor drift ?> 0 = No drift for 10 seconds 5B: Right arm motor drift ?> 4 = No movement 6A: Left leg motor drift ?> 2 = Some effort against gravity 6B: Right leg motor drift ?> 4 = No movement 7: Limb Ataxia ?> 0 = No ataxia 8: Sensation ?> 0 = Normal; no sensory loss 9: Language/aphasia ?> 2 = Severe aphasia: fragmentary expression, inference needed, cannot identify materials 10: Dysarthria ?> 2 = Mute/anarthric 11: Extinction/inattention ?> 2 = Extinction to >1 modality Initial Vital Signs Initial Vital Signs: Vital Signs Pulse Rate 112 H 11/20/25 12:23 Respiratory Rate 28 H 11/20/25 12:23 Blood Pressure 94/53 L 11/20/25 12:23 Pulse Oximetry 97 11/20/25 12:23 Oxygen Delivery Method Room Air 11/20/25 12:23 Course Orders Ordered: ED Orders 11/20/25 12:[address] angio head and neck Stat Complete Blood Count AUTO DIFF Stat Comprehensive Metabolic Panel Stat PTT Partial Thromboplastin Ranjit Stat Prothrombin Time INR Stat Troponin & CK Cardiac Panel Stat Urinalysis and Microscopic Stat EKG-12 Lead Stat 11/20/25 13:03 CT abdomen pelvis w con Stat Lactate (Lactic Acid) Stat 11/20/25 13:55 Ictotest Urine Stat Urine Culture Stat 11/20/25 14:07 Blood Culture Stat 11/20/25 15:15 Complete Blood Count AUTO DIFF Routine PTT Partial Thromboplastin Ranjit Q6H Prothrombin Time INR Routine 11/20/25 21:15 PTT Partial Thromboplastin Ranjit Q6H 11/21/25 03:15 PTT Partial Thromboplastin Ranjit Q6H 11/21/25 05:00 Hemoglobin and Hematocrit DAILY Platelet Count DAILY 11/21/25 09:15 PTT Partial Thromboplastin Ranjit Q6H 11/22/25 05:00 Hemoglobin and Hematocrit DAILY Platelet Count DAILY Heparin Sodium/Dextrose (Heparin Drip) 25,000 unit in 500 mls @ 9 mls/hr IV CONT SABA; Protocol Last Admin: 11/20/25 15:26 Dose: 12 units/kg/hr, 9 mls/hr Discontinued Medications Heparin Sodium (Porcine) (Heparin 5,000 Unit/Ml Vial) 2,500 unit 60 unit/kg (2500 unit) IV NOW ONE Stop: 11/20/25 15:16 Last Admin: 11/20/25 15:26 Dose: 2,500 unit Sodium Chloride (Normal Saline 0.9%) 1,000 mls @ 1,000 mls/hr IV BOLUS ONE Stop: 11/20/25 14:02 Last Infusion: 11/20/25 15:21 Dose: Infused Ceftriaxone Sodium 2,000 mg/ (Sodium Chloride) 100 mls @ 200 mls/hr IV NOW ONE Stop: 11/20/25 13:04 Last Infusion: 11/20/25 14:53 Dose: Infused Sodium Chloride (Normal Saline 0.9%) 1,125 mls @ 750 mls/hr 30 ml/kg infuse over 90 min (1125 ml) IV NOW ONE Stop: 11/20/25 15:57 Last Admin: 11/20/25 15:09 Dose: 750 mls/hr Vancomycin HCl (Vancomycin Per Pharmacy) 1 request MISC NOW ONE Stop: 11/20/25 13:05 Vital Signs Vital signs: Vital Signs - 8 hr 11/20/25 12:23 11/20/25 12:49 11/20/25 12:58 Temperature 94.8 F L Pulse Rate 112 H 110 H 110 H Respiratory Rate 28 H 34 H 30 H Blood Pressure 94/53 L 94/53 L 109/58 L Pulse Oximetry 97 98 97 Oxygen Delivery Method Room Air Room Air Oxygen Flow Rate 11/20/25 13:00 11/20/25 13:15 11/20/25 13:54 Temperature 94.5 F L 98.1 F 99.5 F Pulse Rate 111 H 105 H 97 H Respiratory Rate 32 H 32 H 35 H Blood Pressure 106/62 114/61 106/59 L Pulse Oximetry 96 92 82 L Oxygen Delivery Method Room Air Oxygen Flow Rate 11/20/25 14:00 11/20/25 14:15 11/20/25 14:30 Temperature 99.5 F 99.7 F H 99.5 F Pulse Rate 97 H 97 H 104 H Respiratory Rate 33 H 38 H 37 H Blood Pressure 106/62 109/64 111/71 Pulse Oximetry 95 96 96 Oxygen Delivery Method Oximask Oximask Oxygen Flow Rate 6 6 11/20/25 14:45 11/20/25 15:00 11/20/25 15:15 Temperature 99.3 F 99.3 F 99.1 F Pulse Rate 109 H 110 H 109 H Respiratory Rate 40 H 39 H 35 H Blood Pressure 121/73 117/72 113/75 Pulse Oximetry 99 97 99 Oxygen Delivery Method Oxygen Flow Rate 11/20/25 15:30 Temperature 99.0 F Pulse Rate 108 H Respiratory Rate 39 H Blood Pressure 142/71 H Pulse Oximetry 100 Oxygen Delivery Method Oximask Oxygen Flow Rate 6 Medical Decision Making Lab Data 11/20/25 13:03 11/20/25 13:03 Labs: Lab Results 11/20/25 11/20/25 11/20/25 Range/Units 13:03 13:55 15:01 WBC 9.9 (4.5-11.0) X10^3/uL RBC 2.70 L (4.0-5.2) X10^6/uL Hgb 8.1 L (12.0-16.0) g/dL Hct 23.9 L (36-46) % MCV 88.8 (80-100) fL MCH 30.1 (26-34) PG MCHC 33.9 (30-36) % RDW 13.6 (11.6-14.8) % Plt Count 281 (150-400) X10^3/uL Neut % (Auto) 92.3 H (50-75) % Lymph % (Auto) 2.9 L (25-40) % [place] % (Auto) 4.3 (3-14) % Eos % (Auto) 0.0 L (2-4) % Baso % (Auto) 0.5 (0-2) % Neut # (Auto) 9200 H (2082-9610) /uL Lymph # (Auto) 300 L (5995-9877) /uL [place] # (Auto) 400 (0-900) /uL Eos # (Auto) 0 (0-450) /uL Baso # (Auto) 0 (0-100) /uL PT 15.3 H (9.4-12.5) SECONDS INR 1.4 H (0.9-1.3) APTT 28 (25.1-36.5) SECONDS Sodium 138 (137-145) mmol/L Potassium 3.9 (3.4-5.1) mmol/L Chloride 105 (98-107) mmol/L Carbon Dioxide 24 (22-32) mmol/L BUN 26 H (7-17) mg/dL Creatinine 0.63 (0.52-1.04) mg/dL Estimated GFR > 60 (>60) mL/min BUN/Creatinine Ratio 41.3 H (6-22) Glucose 240 H (70-99) mg/dL Lactate 3.0 H 3.1 H (0.7-2.1) mmol/L Calcium 8.1 L (8.4-10.2) mg/dL Total Bilirubin 0.6 (0.2-1.3) mg/dL AST 119 H (14-36) IU/L ALT 78 H (<35) IU/L Alkaline Phosphatase 104 (38-126) U/L Total Creatine Kinase 77 (30-135) U/L Troponin I 0.615 H* (0.01-0.034) ng/mL Total Protein 6.5 (6.3-8.2) g/dL Albumin 2.9 L (3.5-5.0) g/dL Globulin 3.6 (1.7-4.1) g/dL Albumin/Globulin Ratio 0.8 L (1.0-2.8) Urine Color Yellow Urine Appearance Cloudy Urine pH 5.5 (4.5-8.0) Ur Specific [place] 1.020 (1.000-1.035) Urine Protein 3+ H (Negative) Urine Glucose (UA) Trace H (Negative) g/dL Urine Ketones 1+ H (NEGATIVE) Urine Occult Blood 2+ H (Negative) Urine Nitrate Positive H (Negative) Urine Bilirubin 2+ H (NEGATIVE) Ur Bilirubin Confirm Negative (Negative) Urine Urobilinogen 4.0 H (0.2) E.U./dL Ur Leukocyte Esterase Negative (NEGATIVE) Urine RBC 1-5/hpf (0-5/HPF) Urine WBC 5-10/hpf H (0-5/HPF) Ur Squamous Epith Cells 1-5 /hpf (0-5/HPF) Urine Bacteria Moderate (10-30) H (None) Granular Casts 0-1/lpf (None) Ur Culture Indicated? Specimen cultured Vol Urine Centrifuged 5 MDM Narrative Medical decision making narrative: CC: Altered mental status Complicating co-morbidities: Prior stroke with right-sided weakness, dementia, large sacral decubiti as well as smaller decubiti over the right scapula, continued weight loss Data collected from: Medics, daughter Social determinants of health that may influence the patients condition: Patient lives at home with her daughter. Her daughter does not seem to understand the degree of her issues and describes using small amount of peroxide and [id number] Band-Aids to help with her huge sacral decubitus. Also notes that at night the patient will pick and rub at the edges of this decubitus when she is sleeping Medical records reviewed: Discharge summary from August of 2024 is reviewed. Differential considered: Stroke, sepsis, cardiac event Exam documented above, pertinent findings include: Cachectic, right-sided weakness, right-sided neglect, unable to answer questions, follow direct commands, mild bibasilar crackles, very large sacral decubitus and scapular ulcers please see pictures and nursing documentation for details. Lab Test results independently reviewed as above. Pertinent findings: CBC does not show significant leukocytosis, chronic anemia with hemoglobin 8.1 which is lower than it has been previously, neutrophils at 92% Chemistries show appropriate renal function despite no urine output. Slightly elevated glucose. Lactate significantly elevated at 3, calcium slightly low at 8.1 ALT and AST are slightly elevated but lower than numbers in May Troponin is significantly elevated at 0.615 Independently reviewed EKG: Sinus tachycardia at 1:19 a.m., ST-depression laterally Imaging studies independently reviewed: Brain CT CT angiogram CT of the pelvis Consultations: 230 request stroke consult. Multiple discussions with the stroke neurologist, no obvious extension of her previous stroke no large vessel occlusions. In light of concern for NSTEMI felt that heparin would be a reasonable risk. That risk was discussed with the patient's daughter who absolutely wants to do everything possible. Heparin will be started [address] [place] we will ask for cardiac consultation for her NSTEMI in medical treatment for this while she is hospitalized. sHe is not going to be a heart catheterization candidate Treatments: Fluids, antibiotics I do suspect that she is having an NSTEMI however with her altered mental status I am not sure that heparin is going to be appropriate nor helpful Re-evaluations: 2:00pm Discussion with her daughter. Daughter has almost no insight to the severity of disease that her mother is currently suffering with. Together we decided that she would be DNR, DNI. We will use antibiotics and we will use oxygen but would not intubate nor use pressors or CPR. Discussion: 80-year-old woman with dramatically altered mental status. Possibilities include stroke, phone call from Radiology at time of brain CT read shows no acute new findings but she does have a large left MCA deficit. Clinically and based on her daughter's description with the acute change this morning around breakfast She likely is having an NSTEMI. We will discuss with stroke neurology pros and cons of heparin for her neurologic event She is appearing to be septic and significantly dehydrated, antibiotics with septic source assumed to be her large sacral ulcer are initiated. We will re-evaluate after initial fluids, temp sensing wagner cath has been placed. Additional source of infection can be urinary tract infection as well as the ingrown index finger into the palm of her right hand from her contracture. The fingernail has been removed from the wound and there is purulent discharge at the site. Critical Care Time Critical Care Time Critical Care Time: Yes Total Critical Care Time: 53 Attestation: Critical care time is separate from other billable procedures. There is a high probability of a significant, sudden or life-threatening deterioration that requires my full and direct attention, intervention and personal management. This critical care time includes consultation with family and other consulting doctors, review of records, and interpretation of data from labs, EKGs and imaging as well as managements of acutely altered mental status with wide differential including stroke, sepsis, NSTEMI all of which do seem to in fact the part of her diagnosis. Long discussion with code status and her daughter and multiple consultations with physicians. Discharge Plan Departure Patient Disposition: Admitted As Inpatient Clinical Impression: Cerebrovascular accident (CVA), Acute non-ST elevation myocardial infarction (NSTEMI), Sepsis, Decubitus ulcer of sacral region, unstageable, Decubitus ulcer of scapular region, stage 3, Hypothermia Sepsis Evaluation (ED) Level 1 - Infection Sepsis Infection Criteria Present: Suspected New Infection Level 2 - SIRS Sepsis SIRS Criteria Present: Temperature > 101.0 or < 96.8 F, Respiratory Rate > 20 bpm or PaCO2 < 32 mmHg and Pulse > 90 bpm Level 3 - Organ Dysfunction Sepsis Organ Dysfunction Criteria Present: New/Unexplained Change in Mental Status, Blood Glucose > 140 mg/dl (no DM) and Lactic Acid > 2 mmol/L Response It is my opinion that this patient have a likely infectious etiology for meeting sepsis criteria: Does
--- NOTE | 2025-11-20 13:03 | DI.CT.S_ITS ---
PROCEDURE: CT ABDOMEN PELVIS W CON INDICATIONS: huge sacral pressure ulcer TECHNIQUE: After the administration of intravenous contrast, axial sections acquired from the lung bases to the pubic symphysis. Coronal and sagittal reformats were performed. For radiation dose reduction, the following was used: automated exposure control, adjustment of mA and/or kV according to patient size. COMPARISON: CT chest PE 09/08/2024. FINDINGS: Image quality: Diagnostic. Lower Chest: Dense coronary artery calcifications. Descending aorta stent. Redemonstration of pleural calcifications in the left lung base. ABDOMEN: Liver: No solid mass. Gallbladder: No radiopaque gallstones or wall thickening. Biliary ducts: No biliary dilation. Pancreas: No ductal dilation. Spleen: Size is within normal limits. Adrenal Glands: No adrenal nodules. Kidneys and Ureters: No hydronephrosis. No solid mass. No complex renal cystic lesion which requires follow up. Stomach and Bowel: Normal colonic caliber, without significant wall thickening. High fecal burden throughout the colon. Peritoneum: No abnormal intraperitoneal fluid. No free air. Ventral Wall: No significant ventral hernia. Abdominal Nodes: No retroperitoneal or mesenteric adenopathy by size criteria. Vessels: Aorta and inferior vena cava are normal in size. Severe coronary artery calcifications. PELVIS: Pelvic Organs: Unremarkable. Bladder: Bladder is decompressed around a Rivera catheter in situ.. Pelvic Nodes: No enlarged lymph nodes. Miscellaneous: No inguinal hernias are seen. Sacral decubitus ulceration with irregularity of the cutaneous surface. There is fluid and gas tracking along the sacral region measuring 5.3 cm in craniocaudal dimension. At the superior aspect there is more focal small fluid collection containing gas measuring 1.0 x 1.6 cm (2/98) which is continuous with the ulceration inferiorly. No evidence of deep space infection. Bones: No aggressive osseous abnormality. Chronic L3 compression deformity. No acute osseous abnormality. IMPRESSION: Sacral ulceration measuring up to 5.3 cm in craniocaudal dimension with more focal fluid at the superior aspect. No evidence of deep space infection. Additional chronic findings as above. Approved by: Mayi Cornelius M.D.,Ph.D. on 11/20/2025 at 15:08
[2025-11-20 13:11] LABS: Add Manual Diff / Slide Review NO; Hematocrit 23.9 % (36-46); Hemoglobin 8.1 g/dL (12.0-16.0); Lymphocytes Absolute Auto 300 /uL (1100-4500); Mean Corpuscular HGB Conc 33.9 % (30-36); Mean Corpuscular Hemoglobin 30.1 PG (26-34); Mean Corpuscular Volume 88.8 fL (80-100); Platelet Count 281 X10^3/uL (150-400)
--- NOTE | 2025-11-20 13:11 | PC.WOUNDPHOT ---
Coccyx Pressure Sore Photo 1: Date 11/20/25 Photo taken at 1300 Coccyx Pressure Sore Photo 2: Date 11/20/25 Photo taken at 1300 Coccyx Pressure Sore Photo 3: Date 11/20/25 Photo taken at 1300 Mid Back Pressure Sore Photo 1: Date 11/20/25 Photo taken at 1300 Mid Back Pressure Sore Photo 2: Date 11/20/25 Photo taken at 1300
[2025-11-20 13:18] LABS: INR 1.4 (0.9-1.3); Prothrombin Time 15.3 SECONDS (9.4-12.5)
--- NOTE | 2025-11-20 13:20 | EKG_ITS ---
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
[2025-11-20 13:21] LABS: PTT Partial Thromboplastin Tim 28 SECONDS (25.1-36.5)
[2025-11-20 13:22] LABS: Alanine Aminotransferase 78 IU/L (<35); Albumin 2.9 g/dL (3.5-5.0); Albumin Globulin Ratio 0.8 (1.0-2.8); Alkaline Phosphatase 104 U/L (38-126); Blood Urea Nitrogen 26 mg/dL (7-17); Calcium 8.1 mg/dL (8.4-10.2); Carbon Dioxide 24 mmol/L (22-32); Chloride 105 mmol/L (98-107); Creatine Kinase 77 U/L (30-135); Estimated Glomerular Filt Rate > 60 mL/min (>60); Globulin 3.6 g/dL (1.7-4.1); Glucose 240 mg/dL (70-99); HEMOLYSIS 15 (0-50); Lactate (Lactic Acid) 3.0 mmol/L (0.7-2.1); Potassium 3.9 mmol/L (3.4-5.1); Sodium 138 mmol/L (137-145); Total Protein 6.5 g/dL (6.3-8.2)
--- NOTE | 2025-11-20 13:22 | EKG_ITS ---
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
[2025-11-20] MEDS: SODIUM CHLORIDE 0.9% 1,000 ML 1000 ML IV (13:40)
[2025-11-20 13:44] LABS: Troponin I 0.615 ng/mL (0.01-0.034)
[2025-11-20] MEDS: cefTRIAXone 2,000 MG in SODIUM CHLORIDE 0.9% 100 ML 200 MG IV (14:08)
[2025-11-20 14:19] LABS: Appearance Urine UA CLOUDY; Bilirubin Urine UA 2+ (NEGATIVE); Color Urine UA YELLOW; Glucose Urine UA TRACE g/dL (Negative); Ketones Urine UA 1+ (NEGATIVE); Leukocyte Esterase Urine UA NEGATIVE (NEGATIVE); Nitrite Urine UA POSITIVE (Negative); Occult Blood Urine UA 2+ (Negative); Protein Urine UA 3+ (Negative); Specific Gravity Urine UA 1.020 (1.000-1.035); Urobilinogen Urine UA 4.0 E.U./dL (0.2)
[2025-11-20 14:22] LABS: pH Urine UA 5.5 (4.5-8.0)
[2025-11-20 14:43] LABS: Reflexed Lactate in 2 Hours Y
[2025-11-20 14:45] LABS: Culture Indicated Urine Specimen Cultured
[2025-11-20 14:48] LABS: Ictotest Urine Negative (Negative)
[2025-11-20 15:21] LABS: Lactate 2HR (Lactic Acid Rflx) 3.1 mmol/L (0.7-2.1)
[2025-11-20] MEDS: HEPARIN 5,000 UNIT/ML VIAL 2500 UNIT IV (15:26)
[2025-11-20] MEDS: HEPARIN DRIP 25,000 UNIT/500 ML IV.SOLN 9 UNIT IV (15:26)
--- NOTE | 2025-11-20 17:01 | PM.HP.1 ---
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 This morning she was noted to be confused and brought to the emergency room for evaluation. Findings in the emergency department as follows: Core body temperature 94? CT angio of head neck and CT of the head without indication of acute stroke EKG showing repolarization changes similar to previous baseline EKGs White blood cell count 66133 with 92% neutrophils more than double her baseline ANC PT INR 1.4 lactate 3.1 BUN 26 creatinine 0.63 Troponin 0.61 Review of systems: Incapable of participating Physical exam: Extremely cachectic dusky premorbid dry oropharynx does not respond HEENT dysconjugate gaze with dysconjugate ocular movement Edentulous dry oropharynx Lungs rhonchi throughout Heart sounds distant with tachycardic Abdomen is scaphoid scant bowel sounds Neuro NIH 27 Right upper extremity contracture Puncture of right hand from contracted fingernail Extensive sacral decubitus with bone visible Assessment and plan: Sepsis with encephalopathy elevation of troponin secondary to perfusion demand mismatch lactic acidosis Blood cultures x2 Rocephin vancomycin given in the ER At [facility] discontinue vancomycin tomorrow Managed non-STEMI type 2 with aspirin and treatment of sepsis Wound care to sacrum trim finger nail puncturing palm of the hand Failure to thrive: Patient cared for by her daughter in the home Patient has to be fed Code status: Do not resuscitate Disposition: Inpatient Discharge to home after treatment to care of daughter Explore additional resources Time based billin minutes were involved in evaluation of this patient including [id number] evaluation discussion with family direct examination of the patient review of objective laboratory and imaging findings including direct visualization of imaging [facility] Medical History Hypothyroidism Hyperlipidemia Hypertension Seizure Carotid artery disease Cerebrovascular accident (CVA) Social History marital status: unmarried,single number of children: 9 household members: family lives independently: No caregiver/support person: Yes alcohol intake: current substance use type: does not use Meds Home Medications and Allergies Home Medications ?Medication ?Instructions ?Recorded ?Confirmed ?Type amlodipine 10 mg tablet 10 mg PO DAILY #90 tabs 06/12/25 06/12/25 Rx atorvastatin 40 mg tablet 40 mg PO DAILY #90 tabs 06/12/25 06/12/25 Rx levetiracetam 500 mg tablet 500 mg PO BID #180 tabs 06/12/25 06/12/25 Rx levothyroxine 125 mcg tablet 125 mcg PO DAILY #90 tabs 06/12/25 06/12/25 Rx (Synthroid) lisinopril 40 mg tablet 40 mg PO DAILY #90 tabs 06/12/25 06/12/25 Rx metformin 500 mg tablet 500 mg PO DAILY #30 tabs 10/30/25 Rx Allergies Allergy/AdvReac Type Severity Reaction Status Date / Time No Known Drug Allergies Allergy Verified 06/12/25 11:00 Exam Vital Signs (past 8 hours): - 11/20/25 12:23 11/20/25 12:49 11/20/25 12:58 Temperature 94.8 F L Pulse Rate 112 H 110 H 110 H Respiratory Rate 28 H 34 H 30 H Blood Pressure 94/53 L 94/53 L 109/58 L Pulse Oximetry 97 98 97 Oxygen Delivery Method Room Air Room Air Oxygen Flow Rate 11/20/25 13:00 11/20/25 13:15 11/20/25 13:54 Temperature 94.5 F L 98.1 F 99.5 F Pulse Rate 111 H 105 H 97 H Respiratory Rate 32 H 32 H 35 H Blood Pressure 106/62 114/61 106/59 L Pulse Oximetry 96 92 82 L Oxygen Delivery Method Room Air Oxygen Flow Rate 11/20/25 14:00 11/20/25 14:15 11/20/25 14:30 Temperature 99.5 F 99.7 F H 99.5 F Pulse Rate 97 H 97 H 104 H Respiratory Rate 33 H 38 H 37 H Blood Pressure 106/62 109/64 111/71 Pulse Oximetry 95 96 96 Oxygen Delivery Method Oximask Oximask Oxygen Flow Rate 6 6 11/20/25 14:45 11/20/25 15:00 11/20/25 15:15 Temperature 99.3 F 99.3 F 99.1 F Pulse Rate 109 H 110 H 109 H Respiratory Rate 40 H 39 H 35 H Blood Pressure 121/73 117/72 113/75 Pulse Oximetry 99 97 99 Oxygen Delivery Method Oxygen Flow Rate 11/20/25 15:30 11/20/25 15:45 11/20/25 16:00 Temperature 99.0 F 98.8 F 98.6 F Pulse Rate 108 H 107 H 102 H Respiratory Rate 39 H 39 H 38 H Blood Pressure 142/71 H 125/62 133/59 L Pulse Oximetry 100 94 96 Oxygen Delivery Method Oximask Oxygen Flow Rate 6 11/20/25 16:15 Temperature 98.6 F Pulse Rate 97 H Respiratory Rate 33 H Blood Pressure 106/59 L Pulse Oximetry 97 Oxygen Delivery Method Blow By Oxygen Flow Rate 6 Oxygen Delivery Method Blow By Oxygen Flow Rate 6 Objective Labs 11/20/25 13:03 11/20/25 13:03 Labs: Laboratory Results - last 24 hr 11/20/25 11/20/25 11/20/25 13:03 13:55 15:01 WBC 9.9 RBC 2.70 L Hgb 8.1 L Hct 23.9 L MCV 88.8 MCH 30.1 MCHC 33.9 RDW 13.6 Plt Count 281 Neut % (Auto) 92.3 H Lymph % (Auto) 2.9 L [place] % (Auto) 4.3 Eos % (Auto) 0.0 L Baso % (Auto) 0.5 Neut # (Auto) 9200 H Lymph # (Auto) 300 L [place] # (Auto) 400 Eos # (Auto) 0 Baso # (Auto) 0 PT 15.3 H INR 1.4 H APTT 28 Sodium 138 Potassium 3.9 Chloride 105 Carbon Dioxide 24 BUN 26 H Creatinine 0.63 Estimated GFR > 60 BUN/Creatinine Ratio 41.3 H Glucose 240 H Lactate 3.0 H 3.1 H Calcium 8.1 L Total Bilirubin 0.6 AST 119 H ALT 78 H Alkaline Phosphatase 104 Total Creatine Kinase 77 Troponin I 0.615 H* Total Protein 6.5 Albumin 2.9 L Globulin 3.6 Albumin/Globulin Ratio 0.8 L Urine Color Yellow Urine Appearance Cloudy Urine pH 5.5 Ur Specific [place] 1.020 Urine Protein 3+ H Urine Glucose (UA) Trace H Urine Ketones 1+ H Urine Occult Blood 2+ H Urine Nitrate Positive H Urine Bilirubin 2+ H Ur Bilirubin Confirm Negative Urine Urobilinogen 4.0 H Ur Leukocyte Esterase Negative Urine RBC 1-5/hpf Urine WBC 5-10/hpf H Ur Squamous Epith Cells 1-5 /hpf Urine Bacteria Moderate (10-30) H Granular Casts 0-1/lpf Ur Culture Indicated? Specimen cultured Vol Urine Centrifuged 5 Assessment & Plan Time-Based Coding :: [TOTAL MINUTES] spent with patient and on the chart (including review of chart, obtaining history, exam, reviewing outside data, placing orders, documenting exam and treatment plan, and counseling patient) on [DATE].
--- NOTE | 2025-11-20 17:06 | DI.RAD.S_ITS ---
PROCEDURE: XR CHEST 1V INDICATIONS: Suspected pneumonia TECHNIQUE: One view of the chest was acquired. COMPARISON: [facility], CT, CT STROKE, 11/20/2025, 12:23. [facility], CT, CT ABDOMEN PELVIS W CON, 11/20/2025, 13:33. [facility], CR, XR CHEST 1V, 09/08/2024, 3:43. [facility], CR, XR CHEST FOR PICC 1V, 09/14/2024, 19:41. [facility], CT, CT ANGIO HEAD AND NECK, 11/20/2025, 12:23. FINDINGS: The patient is rotated to the right for this study. Surgical changes and devices: There is a proximal aortic stent. Sternotomy wires are seen. Lungs and pleura: An incomplete inspiratory result is noted, causing a crowded appearance to the lung markings. No focal infiltrates are seen. No pneumothorax or significant pleural effusions are seen. Mediastinum: The cardiac contours are within normal limits. The aorta demonstrates calcification and tortuosity. Bones and chest wall: Age-appropriate bony degenerative changes are seen. No suspicious bony lesions. Overlying soft tissues appear unremarkable. IMPRESSION: No focal infiltrates are seen. Postoperative and degenerative changes are seen. Dictated by: Mikey Spence M.D. on 11/20/2025 at 16:49 Approved by: Mikey Spence M.D. on 11/20/2025 at 16:50
[2025-11-20] MEDS: LACTATED RINGERS 1,000 ML 100 ML IV (18:33)
--- NOTE | 2025-11-20 18:59 | PC.NURSE ---
PT ARRIVED TO UNIT AT 1814. EYE OPENING TO VERBAL STIMULI BUT NO COMMANDS FOLLOWED. 100% SPO2 WITH OXYMASK AT 5L. 96/49 BP. REPEAT 98/52. TAMAYO IN PLACE. HEP GTT STOPPED PER ORDER. PT SOILED AND CHANGED. MORE WOUND PHOTOS TAKEN. SEE CHART. REPOSITIONED WITH PILLOWS TO ALL PRESSURE POINTS. MADE MD AWARE OF PT ARRIVAL. STATES OK TO HOLD PO ASPIRIN AT THIS TIME. IVF STARTED. CARE ONGOING.
[2025-11-20 22:02] LABS: Troponin I 3.970 ng/mL (0.01-0.034)
[2025-11-21 00:47] VITALS: BP 102/58; PULSE 106; RESP 20; TEMP 36.8; O2SAT 100
[2025-11-21] MEDS: LACTATED RINGERS 1,000 ML 100 ML IV (03:26)
[2025-11-21 04:45] VITALS: BP 89/51; PULSE 93; RESP 15; TEMP 36.4; O2SAT 99
[2025-11-21 05:25] LABS: Add Manual Diff / Slide Review NO; Lymphocytes Absolute Auto 1000 /uL (1100-4500); Mean Corpuscular HGB Conc 34.0 % (30-36); Mean Corpuscular Hemoglobin 30.0 PG (26-34); Mean Corpuscular Volume 88.3 fL (80-100); Platelet Count 209 X10^3/uL (150-400)
[2025-11-21 05:26] LABS: Hemoglobin 6.7 g/dL (12.0-16.0)
[2025-11-21 05:27] LABS: Hematocrit 19.7 % (36-46)
[2025-11-21 05:36] LABS: PTT Partial Thromboplastin Tim 32 SECONDS (25.1-36.5)
[2025-11-21 05:45] LABS: Albumin 2.4 g/dL (3.5-5.0); Albumin Globulin Ratio 0.8 (1.0-2.8); Alkaline Phosphatase 181 U/L (38-126); Blood Urea Nitrogen 30 mg/dL (7-17); Calcium 7.5 mg/dL (8.4-10.2); Carbon Dioxide 23 mmol/L (22-32); Chloride 113 mmol/L (98-107); Estimated Glomerular Filt Rate > 60 mL/min (>60); Globulin 3.1 g/dL (1.7-4.1); Glucose 117 mg/dL (70-99); HEMOLYSIS < 15 (0-50); Potassium 3.8 mmol/L (3.4-5.1); Sodium 143 mmol/L (137-145); Total Protein 5.5 g/dL (6.3-8.2)
[2025-11-21 06:02] LABS: Alanine Aminotransferase 814 IU/L (<35)
[2025-11-21] MEDS: SODIUM CHLORIDE 0.9% 500 ML 1000 ML IV (06:02)
[2025-11-21 07:00] VITALS: O2SAT 97
[2025-11-21 09:23] VITALS: BP 89/47; PULSE 105; RESP 16; TEMP 36.7; O2SAT 100
[2025-11-21 09:52] VITALS: O2SAT 92
--- NOTE | 2025-11-21 10:55 | DIET.CONS ---
Dietary Consultation Note Admission Date: 11/20/2025 16:45 Assessment: 80 y F admitted for sepsis. Dietitian screened for low Chepe score and BMI. Per rounds this morning, hospitalist reports will need to have goals of care discussion. Pt may transfer to comfort care based on current condition. Extensive sacral decubitus with bone visible and pt is extremely cachetic per hospitalist note. Daughter feeds patient. Ht: 152.4 cm Wt: 42 kg BMI: 18.1 UBW: 50 kg on 09/08/24, 52 kg on 06/12/25 -20% weight loss within 1 yr, severe Last BM: 11/20/25 (11/20/25 18:29) MNA: Chepe Score: 9 Diet: 11/20/25 Dinner General (Regular) Diet Diet Modifications: Labs: RBC 2.23 X10^6/uL (4.0-5.2) L 11/21/25 04:08 Hgb 6.7 g/dL (12.0-16.0) L* 11/21/25 04:08 Hct 19.7 % (36-46) L* 11/21/25 04:08 Creatinine 0.65 mg/dL (0.52-1.04) 11/21/25 04:08 Lactate 3.1 mmol/L (0.7-2.1) H 11/20/25 15:01 Nutrition Diagnosis: Severe chronic protein calorie malnutrition r/t increased energy-protein needs and inadequate oral intakes as evidenced by 20% weight loss within 1 year (severe), extensive sacral decubitus with bone visible, BMI severely underweight for age (18.1) Interventions: Goals of care, will re-assess if not comfort care EER: 1500 kcals (35 kcals/kg per BMI) 75 g protein (1.8 g/kg protein per sepsis, wound, malnutrition) Monitoring/Evaluations: goals of care Electronically Signed by: Mariya Ferguson 11/21/25 10:55 Clinical Dietitian [address] [id number]
--- NOTE | 2025-11-21 10:58 | PM.DDS.1 ---
Discharge Summary History of Illness Narrative: Day of : 11/21/2025 Time of : 10:45 a.m. 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 This morning she was noted to be confused and brought to the emergency room for evaluation. Findings in the emergency department as follows: Core body temperature 94? CT angio of head neck and CT of the head without indication of acute stroke EKG showing repolarization changes similar to previous baseline EKGs White blood cell count 45077 with 92% neutrophils more than double her baseline ANC PT INR 1.4 lactate 3.1 BUN 26 creatinine 0.63 Troponin 0.61 Review of systems: Incapable of participating Physical exam on admission 11/20: Extremely cachectic dusky premorbid dry oropharynx does not respond HEENT dysconjugate gaze with dysconjugate ocular movement Edentulous dry oropharynx Lungs rhonchi throughout Heart sounds distant with tachycardic Abdomen is scaphoid scant bowel sounds Neuro NIH 27 Right upper extremity contracture Puncture of right hand from contracted fingernail Extensive sacral decubitus with bone visible Hospital course: Through the night patient became less responsive hypotensive despite attempts at fluid resuscitation respirations ceased at 10:40 a.m. on 11/21/2025 heart sounds stopped at 10:45 a.m. and patient declared Cause of : Sepsis secondary to deep sacral decubitus infection Hospital Course Date of Admission: 11/20/25 16:45 Primary care provider: Leslie Ugalde MD Objective Labs 11/21/25 04:08 11/21/25 04:08 Labs: Laboratory Results - last 24 hr 11/20/25 11/20/25 11/20/25 13:03 13:55 15:01 WBC 9.9 RBC 2.70 L Hgb 8.1 L Hct 23.9 L MCV 88.8 MCH 30.1 MCHC 33.9 RDW 13.6 Plt Count 281 Neut % (Auto) 92.3 H Lymph % (Auto) 2.9 L [place] % (Auto) 4.3 Eos % (Auto) 0.0 L Baso % (Auto) 0.5 Neut # (Auto) 9200 H Lymph # (Auto) 300 L [place] # (Auto) 400 Eos # (Auto) 0 Baso # (Auto) 0 PT 15.3 H INR 1.4 H APTT 28 Sodium 138 Potassium 3.9 Chloride 105 Carbon Dioxide 24 BUN 26 H Creatinine 0.63 Estimated GFR > 60 BUN/Creatinine Ratio 41.3 H Glucose 240 H Lactate 3.0 H 3.1 H Calcium 8.1 L Total Bilirubin 0.6 AST 119 H ALT 78 H Alkaline Phosphatase 104 Total Creatine Kinase 77 Troponin I 0.615 H* Total Protein 6.5 Albumin 2.9 L Globulin 3.6 Albumin/Globulin Ratio 0.8 L Urine Color Yellow Urine Appearance Cloudy Urine pH 5.5 Ur Specific [place] 1.020 Urine Protein 3+ H Urine Glucose (UA) Trace H Urine Ketones 1+ H Urine Occult Blood 2+ H Urine Nitrate Positive H Urine Bilirubin 2+ H Ur Bilirubin Confirm Negative Urine Urobilinogen 4.0 H Ur Leukocyte Esterase Negative Urine RBC 1-5/hpf Urine WBC 5-10/hpf H Ur Squamous Epith Cells 1-5 /hpf Urine Bacteria Moderate (10-30) H Granular Casts 0-1/lpf Ur Culture Indicated? Specimen cultured Vol Urine Centrifuged 5 11/20/25 11/21/25 21:01 04:08 WBC 7.4 RBC 2.23 L Hgb 6.7 L* Hct 19.7 L* MCV 88.3 MCH 30.0 MCHC 34.0 RDW 13.8 Plt Count 209 Neut % (Auto) 81.1 H Lymph % (Auto) 14.0 L [place] % (Auto) 4.6 Eos % (Auto) 0.1 L Baso % (Auto) 0.2 Neut # (Auto) 6000 Lymph # (Auto) 1000 L [place] # (Auto) 300 Eos # (Auto) 0 Baso # (Auto) 0 PT INR APTT 32 Sodium 143 Potassium 3.8 Chloride 113 H Carbon Dioxide 23 BUN 30 H Creatinine 0.65 Estimated GFR > 60 BUN/Creatinine Ratio 46.2 H Glucose 117 H D Lactate Calcium 7.5 L Total Bilirubin 0.3 AST 1456 H ALT 814 H Alkaline Phosphatase 181 H D Total Creatine Kinase Troponin I 3.970 H* 9.710 H* Total Protein 5.5 L Albumin 2.4 L Globulin 3.1 Albumin/Globulin Ratio 0.8 L Urine Color Urine Appearance Urine pH Ur Specific [place] Urine Protein Urine Glucose (UA) Urine Ketones Urine Occult Blood Urine Nitrate Urine Bilirubin Ur Bilirubin Confirm Urine Urobilinogen Ur Leukocyte Esterase Urine RBC Urine WBC Ur Squamous Epith Cells Urine Bacteria Granular Casts Ur Culture Indicated? Vol Urine Centrifuged
--- NOTE | 2025-11-21 11:26 | CM.DANOTE ---
Patient pass prior to interview. Discharge Planning/Care Management CM Discharge Assessment Start: 11/20/25 17:15 Freq: Status: Active Protocol: Document 11/21/25 11:25 (Rec: 11/21/25 11:26 [id number]) Discharge Planning Assessment Assigned Discharge Shamika Wilkins RN, CM [employer] Ha[employer] Operator Advance Directives? No History Provided By Patient,Medical Record Prior Living House Arrangements Household Members family Discharge Plan Foster Care Transportation PT recommending continued OP OT. Arrangement Referrals Initiated Home Health If patient plan is Yes home with home health: Has signed face to face form been completed?
--- NOTE | 2025-11-21 12:02 | PC.NURSE ---
Around 1035, pt's HR was noted to have dropped down to the 40s on telemetry but it quickly came back up to low 100s where is had been maintaining previously. MD was informed. HR dipped again and this RN was called to the bedside. Pt was found taking agonal breaths and non responsive. Last breath around 1040, heart sounds ceased at 1045. MD at bedside.
== END 2025-11-21 10:45 | disposition expired | DRG 871 ==
LOC: ED 16:18 → AC 16:46
PROVIDERS: Admitting Provider Internal Medicine; Emergency Provider Emergency Medicine; PCP Family Medicine; Referring Provider Emergency Medicine; Visit Provider Internal Medicine
DX: A41.9 Sepsis, unspecified organism (principal); G93.41 Metabolic encephalopathy; L89.113 Pressure ulcer of right upper back, stage 3; I21.A1 Myocardial infarction type 2; J69.0 Pneumonitis due to inhalation of food and vomit; R65.21 Severe sepsis with septic shock; J18.9 Pneumonia, unspecified organism; E87.20 Acidosis, unspecified; I69.351 Hemiplegia and hemiparesis following cerebral infarction affecting right dominant side; R62.7 Adult failure to thrive; I10 Essential (primary) hypertension; T68.XXXA Hypothermia, initial encounter; X58.XXXA Exposure to other specified factors, initial encounter; L89.150 Pressure ulcer of sacral region, unstageable; Z74.01 Bed confinement status; Z66 Do not resuscitate
CPT/HCPCS: 36415; 70450; 70496; 70498; 71045; 74177; 80053; 81001; 82550; 83605; 84484; 85025; 85610; 85730; 87040; 87086; 93005; 94762; 96365; 96366; 96367; 99285; 99291; J0696; J1171; J1644; J1953; J7030; J7040; J7050; J7120; Q9967